=== PATIENT | female | born 1945 | race Caucasian/White ===

== ENCOUNTER 2019-07-19 01:24 | Inpatient (IN) | payer MEDICARE, OTHER, SELFPAY ==
[2019-07-19] VITALS (17 sets, daily range): BP systolic 95–163; BP diastolic 62–84; PULSE 63–80; RESP 12–28; TEMP 36.6–36.8; O2SAT 92–99; BMI 41.5
[2019-07-19 01:55] LABS: Glucose Point of Care 286 mg/dL (70-110)
--- NOTE | 2019-07-19 02:21 | P.HP_ITS ---
Providers/Chief Complaint Admitting Physician: Renetta Dalal MD Primary Care Provider: Gurinder Allen Chief Complaint: COPD EXACERBATION History of Present Illness Tamar Mercado is a 74 year old female who carries diagnosis of COPD, non- smoker, Santos, morbid obesity, recently she started using oxygen at home came in with chief complaint of shortness of breath and wheezing. Patient is stating at baseline she is leading a sedentary lifestyle, she is not very active because she gets short of breath very easily, really recently in the last 3 to 4 weeks she has been getting more wheezing and shortness of breath episodes. She was recently seen in the ER of [facility] where she was discharged after breathing treatment and oxygen therapy. Patient is stating that she was not able to sleep last night because of her shortness of breath and wheezing and this morning around 5 AM her wheezing got worse, it was audible wheezing, family especially son-in-law tried to help her with all the breathing treatments increase her oxygen level but she kept having wheezing and shortness of breath. She did not notice any fever, chills, nausea, vomiting but she is endorsing flores rrhea which has been chronic for last 7 months. She has had not undergone any colonoscopy for screening purposes because she refused. No family history of colon cancer. She has been seen by Dr. Flores for MGUS being managed conservatively. She has never smoked in her life and cause of COPD is unknown, alpha-1 antitrypsin levels have never been obtained. She is denying swelling of her lower extremities, or allergies to pets. No recent travel outside [facility], no one has visited [place], she has been having shortness of breath with nonproductive cough, she is using a whole lot of medications for her anxiety and pain. She has never been tested for sleep apnea. Diagnostics at the ER at outside facility showed Heart rate 88, respiratory 16, blood pressure 166/90, 92% saturation on 4 L nasal cannula, patient was afebrile White count 26 increased after getting steroids Hemoglobin 14 Platelet 357 Sodium 144 Potassium 4.4 Chloride 103 CO2 25 Calcium 9.1 BUN 16 creatinine 0.8 Glucose 201 total protein 7.6 Albumin 4.3 Alkaline phosphatase 154 AST 61 ALT 48 BNP 17 Patient resting troponin 12 baseline Chest x-ray did not show any acute pathology ABG 7.3 //86/27 on 6 L nasal cannula troponin 2-hour 28 with delta of 16 At the facility she got DuoNeb, methylprednisolone 125 mg, Ativan 2 mg, diphenhydramine 25 mg, albuterol, morphine 4 mg, Zofran 4 mg. When I saw her patient had audible wheezing, she was saturating well 97% on 3 L, family was at the bedside, patient was able to give me all the details she has mild conversational dyspnea no cyanotic appearance Review of Systems Const: Reports: body aches, change in appetite, change in weight, fatigue and malaise; Denies: fever or chills Eyes: Denies: change in vision or blurry vision ENMT: Denies: throat pain or uvular edema Card: Denies: chest pain, palpitations, irregular heart rhythm or edema Resp: Reports: shortness of breath and non-productive cough GI: Reports: cramping; Denies: abdominal pain or nausea : Denies: flank pain or difficulty urinating Musc: Reports: neck pain, back pain, extremity pain and joint stiffness Skin/Breast: Denies: rash Neuro: Denies: headache Psych: Reports: anxiety, sleeping less and change in appetite Endo: Denies: excessive urination Sharath/Lymph: Denies: easy bruising All/Imm: Denies: hives Medications/Allergies Allergies Allergy/AdvReac Type Severity Reaction Status Date / Time cortisone Allergy Unknown Verified 06/27/19 10:29 latex Allergy unknown Verified 06/27/19 10:29 oxycodone Allergy unknown Verified 06/27/19 10:29 prednisone Allergy ADR-Itching Verified 07/19/19 03:06 primidone Allergy Unknown Verified 07/19/19 03:05 ticagrelor [From Brilinta] Allergy Unknown Verified 07/19/19 03:06 PFSH Acute PFSH: Statuses (acute, chronic, etc) shown below reflect problem list status as previously entered and may not be historically accurate Medical History (Updated 07/19/19 @ 03:05 by Renetta Dalal MD) Ataxia (Acute) Chronic pain (Acute) COPD (chronic obstructive pulmonary disease) (Acute) Diabetes (Acute) Dyslipidemia (Acute) Essential tremor (Acute) Hypertension (Acute) Memory loss (Acute) MGUS (monoclonal gammopathy of unknown significance) (Acute) Nonalcoholic steatohepatitis (Acute) Type 2 diabetes mellitus (Acute) Surgical History (Updated 07/19/19 @ 02:25 by Renetta Dalal MD) H/O arthroscopy of shoulder (Acute) right H/O melanoma excision (Acute) H/O: hysterectomy (Acute) History of phacoemulsification of cataract of both eyes with intraocular lens implantation (Acute) Family History (Updated 07/19/19 @ 02:26 by Renetta Dalal MD) Family/Other CAD (coronary artery disease) Stroke at age 71 due to cerebral aneurysm rupture Social History (Updated 07/19/19 @ 02:25 by Renetta Dalal MD) Smoking and tobacco status: never smoked Alcohol intake: never Substance/Drug Use: never Marital status: Current occupational status: retired Vitals/I&O/Wt Last Vital Signs Temp 98.3 F 07/19/19 01:42 Pulse 80 07/19/19 01:42 Resp 24 H 07/19/19 01:42 BP 163/82 07/19/19 01:42 Pulse Ox 92 07/19/19 01:42 Weight last 48 hrs Weight 120.519 kg Physical Exam Narrative: EXAM NARRATIVE: Morbidly obese female Using her abdominal muscles to breathe Her neck is supple Not able to assess her JVD No use of respiratory sensory muscles but she has audible wheezing, diffuse expiratory wheezing bilaterally Currently saturating well on 2 L nasal cannula 97% Abdomen soft, distended, with obesity, hepatic steatosis, splenomegaly Lower extremities without any edema or swelling Skin does not show any signs of skin breakdown or ulcer EOMI, PERRLA No sinus tenderness A&P Assessment and plan (1) Hypercapnic respiratory failure: Status: Acute Code(s): J96.92 - Respiratory failure, unspecified with hypercapnia (2) Morbid obesity: Status: Acute Code(s): E66.01 - Morbid (severe) obesity due to excess calories Additional A&P Information Acute hypercapnic respiratory failure with chronic hypoxia I believe her symptoms are secondary to underlying undiagnosed sleep apnea with concomitant use of opioids and anxiolytics She has not responded well to DuoNeb and steroids I would use BiPAP we will get another blood gas in 1 hour No active respiratory distress Acute COPD exacerbation Chest x-ray did not show acute abnormalities, would rule out pulmonary embolism because of her sedentary lifestyle, will get CTA on stat basis DuoNeb Prednisone 40 mg for diffuse wheezing Azithromycin for anti-inflammatory effect MGUS: Being managed conservatively by Dr. Flores Anxiety/chronic pain syndrome: She is on multiple medications for analgesia, anxiolysis, we discussed the option of titrating down and de-escalating this medication but patient is very reluctant to try at this visit, however we have only decrease the dose of gabapentin for now Type 2 diabetes Current hyperglycemia secondary to steroid use Moderate dose sliding scale We will check hemoglobin A1c level and add Lantus accordingly GI prophylaxis: Protonix DVT prophylaxis: Because of her morbid obesity I would use Lovenox 40 mg twice a day She is full code Attestations Medical Necessity Statement*: Anticipating her stay to be of more than 2 midnights, currently she needs BiPAP for COPD exacerbation, has diffuse wheezing, she is leading a sedentary lifestyle, CTA chest has been ordered Time Spent in Patient Care: (>than 50% of time spent in counselling and/or direct pt care on unit) . 60 Coding Level of Care Code Acute Odd Shoe Examiner for Terri Lackey Diagnoses Hypercapnic respiratory failure J96.92 Morbid obesity E66.01
--- NOTE | 2019-07-19 02:34 | CT_ITS ---
WS: [id number] CTA scan of the chest with IV contrast. Additional two-dimensional coronal and sagittal reconstructio n and MIP images was performed. 07/19/2019 Clinical Data: PE Comparison: None. DLP: 545.[address] scans at [facility] use at least one of these dose optimization techniques: automat ed exposure control; mA and/or kV adjustment per patient size (includes targeted exams where dose is matched to clinical indication); or iterative reconstruction. Findings: The central pulmonary arteries arteries fill normally. Small bilateral filling defects are seen in th e lower lobe peripheral arteries which may represent small pulmonary emboli. No nodules, masses or effusions are seen. The heart size is normal with no pericardial effusion. The pulmonary arterial system and thoracic aorta demonstrate no abnormalities or dilatations. There is no axillary or significant mediastinal adenopathy. The thyroid gland shows normal enhancement. The trac hea bifurcates into the bronchi. There is a lesion of 50 posterior aspect of the right lobe of the liver which shows enhancement. This could represent a giant hemangioma of the liver but further workup is recommended. The bones of the thoracic and upper lumbar spine are only mild osteoarthritic change of the thoracic vertebral bodies. . CT/CT angio chest PE protcl [id number] Impression: 1. Possible small intraluminal filling defects of the lower lobes which could r epresent small pulmonary emboli. 2. Large irregular lesion of posterior aspect right lobe of the liver most sugg estive of large hemangioma but further workup is recommended.
--- NOTE | 2019-07-19 03:12 | USCV_ITS ---
Tamar Mercado Age: 74 Gender: F : 1945 Exam Date: 07/19/2019 06:11 Ordering Phys: Renetta Dalal MD Technologist: Mendez Cabrera [place] [facility] [place]: COPD BP: 134 / 75 HR: 70 Rhythm: Sinus Technical Quality: Technically difficult study MEASUREMENTS (Male / Female) Normal Values 2D ECHO LV Diastolic Diameter PLAX 3.7 cm 4.2 - 5.9 / 3.9 - 5.3 cm LV Systolic Diameter PLAX 2.6 cm IVS Diastolic Thickness 1.0 cm 0.6 - 1.0 / 0.6 - 0.9 cm IVS Systolic Thickness 2.0 cm LVPW Diastolic Thickness 1.0 cm 0.6 - 1.0 / 0.6 - 0.9 cm LVPW Systolic Thickness 1.3 cm LVOT Diameter 2.1 cm LV Ejection Fraction 2D Teich 57.6 % LV Ejection Fraction MOD 2C 35.2 % LV Ejection Fraction 2C AL 35.1 % LA Diameter 4.7 cm LA Width 3.9 cm LA Height 4.6 cm RA Width 3.2 cm RA Height 4.9 cm M-MODE LV Diastolic Diameter MM 6.0 cm 4.2 - 5.9 / 3.9 - 5.3 cm LV Systolic Diameter MM 4.2 cm LV Ejection Fraction MM Teich 56.2 % IVS Diastolic Thickness MM 1.8 cm 0.6 - 1.0 / 0.6 - 0.9 cm IVS Systolic Thickness MM 2.0 cm LVPW Diastolic Thickness MM 1.3 cm 0.6 - 1.0 / 0.6 - 0.9 cm LVPW Systolic Thickness MM 2.2 cm RV Diastolic Diameter MM 1.8 cm Aortic Annulus Diameter 3.6 cm LA Ao Ratio MM 1.3 MV E Point Septal Separation 1.5 cm DOPPLER AV Peak Velocity 127.0 cm/s LVOT Peak Velocity 96.0 cm/s AV Area Cont Eq vti 3.2 cm squared AV Area Cont Eq pk 2.5 cm squared MV Area PHT 4.4 cm squared Mitral E to A Ratio 0.6 MV E' Velocity 10.0 cm/s Mitral E to MV E' Ratio 5.5 Mitral E to LV E' Lateral Ratio 4.8 Mitral E to LV E' Septal Ratio 6.5 TR Peak Velocity 152.0 cm/s TR Peak Gradient 9.3 mmHg TV Peak E Velocity 67.0 cm/s Right Atrial Pressure 3.0 mmHg Pulmonary Artery Systolic Pressu 12.2 mmHg PV Peak Velocity 71.0 cm/s FINDINGS Left Ventricle Abnormal LV size and ejection fraction of around 58%. No gross wall motion normalities. Right Ventricle Could not be visualized well. The ventricle appears to be somewhat dilated. Right Atrium Right atrium not well visualized. Left Atrium Possibly of normal size. Mitral Valve Mild mitral annular calcification. Aortic Valve Thickened aortic valve. Tricuspid Valve Tricuspid valve not well visualized. Pulmonic Valve Pulmonic valve not well visualized. Pericardium No pericardial effusion. Aorta Normal aortic annulus size. CONCLUSIONS 1. Possibly normal LV size and ejection fraction of 58%. 2. No gross wall motion normalities. 3. The aortic valve appears to be thickened. 4. Mild mitral annular calcification. 5. The right ventricle appears to be mildly dilated Technically very difficult study because of the poor ultrasonic window. Dr Kevin Trevizo MD FAC (Electronically Signed) Final Date: 19 July 2019 09:19 S
[2019-07-19 04:11] LABS: ABG PCO2 48.1 mmHg (35-45); ABG PH Result 7.34 (7.35-7.45); Arterial Blood Gas Hematocrit 41.5 % (37-47); Base Excess ABG -0.4 mmol/L (-2.0-2.0); Blood Gas Allen Test Pos; Blood Gas Sample Site Radial, right; Blood Gas Sample Type Arterial; Oxygen Device BIPAP
[2019-07-19 04:17] LABS: Basophils # 0.1 10^3/uL (0.0-0.1); Basophils % 0.6 %; Eosinophils # 0.6 10^3/uL (0.0-0.8); Eosinophils % 3.3 %; Hematocrit 41.7 % (37.0-47.0); Hemoglobin 13.1 g/dL (11.5-15.3); Lymphocytes # 4.2 10^3/uL (0.8-4.8); Lymphocytes % 24.4 %; Mean Corpuscular HGB Conc 31.4 g/dL (30.0-36.0); Mean Corpuscular Hemoglobin 28.2 pg (28.0-34.0); Mean Corpuscular Volume 89.9 fL (81-99); Mean Platelet Volume 11.1 fL (7.4-10.4); Monocytes # 0.2 10^3/uL (0.2-0.9); Monocytes % 1.2 %; Neutrophils # 11.9 10^3/uL (1.8-7.7); Neutrophils % 69.9 %; Nucleated Red Blood Cells % 0 %; Platelet Count 318 10^3/cmm (130-400); Red Blood Count 4.64 10^6/uL (4.1-5.3); Red Cell Distribution Width 13.5 % (12.1-15.1)
[2019-07-19 04:36] LABS: Anion Gap 19.7 (5-19); Blood Urea Nitrogen 15 mg/dL (8-23); Calcium 9.1 mg/dL (8.5-10.5); Carbon Dioxide 22 mmol/L (22-29); Chloride 102 mmol/L (98-107); Glucose 384 mg/dL (74-106); Osmolality Calculated 298 mOsm/kg (285-295); Potassium 5.7 mmol/L (3.5-5.1); Sodium 138 mmol/L (136-145)
[2019-07-19] MEDS: enoxaparin 40 mg/0.4 mL Syringe SUBCUT (05:00)
[2019-07-19] MEDS: HYDROcodone-acetaminophen 10-325 mg Tablet 1 TAB PO ×2 (05:01→22:16)
--- NOTE | 2019-07-19 07:00 | ECG_ITS ---
Measurements Intervals [place] Rate: 76 P: 69 AL: 180 QRS: 8 QRSD: 90 T: 65 QT: 418 QTc: 470 SINUS RHYTHM LOW QRS VOLTAGE IN PRECORDIAL LEADS [QRS DEFLECTION < 1.0 mV IN CHEST LEADS] No previous ECG available for comparison Electronically Signed On 07-19-2019 15:59:31 APPLIANCE PARTS COUNTER CLERK by Jam Cano M.D. [id number]
[2019-07-19 07:53] LABS: Glucose Point of Care 328 mg/dL (70-110)
[2019-07-19] MEDS: iohexol 350 mg/mL 100 mL Btl IV (07:59)
[2019-07-19] MEDS: buPROPion XL (24 HR) 300 mg Tablet PO (10:12)
[2019-07-19] MEDS: aspirin 81 mg EC Tablet PO (10:12)
[2019-07-19] MEDS: lisinopril 10 mg Tablet PO (10:12)
[2019-07-19] MEDS: gabapentin 100 mg Capsule PO ×2 (10:12→17:28)
[2019-07-19] MEDS: CLONazepam 1 mg Tablet PO ×3 (10:12→20:45)
[2019-07-19 11:42] LABS: Glucose Point of Care 301 mg/dL (70-110)
[2019-07-19] MEDS: ipratropium-albuterol 3 mL Neb INHALATION ×3 (11:49→19:52)
--- NOTE | 2019-07-19 13:32 | PM.PN ---
Subjective Subjective: Interval history: History and physical was reviewed in detail. Patient reports she is breathing better than she was on admission. She denies any other complaints. I discussed with her in detail, pulmonary embolism and risk of medication versus no treatment. Vitals/I&O/Wt Last Vital Signs Temp 97.8 F 07/19/19 11:33 Pulse 67 07/19/19 12:00 Resp 12 07/19/19 11:53 BP 130/77 07/19/19 11:33 Pulse Ox 96 07/19/19 11:53 07/18/19 07/19/19 07/19/19 22:59 06:59 14:59 Intake Total 240 / 240 480 / 480 Balance 240 / 240 480 / 480 Weight last 48 hrs Weight 120.519 kg Physical Exam Narrative: EXAM NARRATIVE: General exam is no apparent distress Cardiovascular regular rate and rhythm without murmur Lungs diminished breath sounds bilaterally but no wheezes Abdomen is soft, obese, positive bowel sounds Extremities no cyanosis clubbing or edema Data : 07/19/19 02:20 07/19/19 02:20 A&P Assessment and plan (1) Hypercapnic respiratory failure: Overall appears to be improving Status: Acute Code(s): J96.92 - Respiratory failure, unspecified with hypercapnia (2) Morbid obesity: Status: Acute Code(s): E66.01 - Morbid (severe) obesity due to excess calories Additional A&P Information Acute COPD exacerbation. Placed on pulmonary toilet, prednisone, Zithromax Probable acute pulmonary embolism. Discussed with patient risks and benefits bits of anticoagulant. Will initiate Eliquis. Dilated RV on echocardiogram with preserved ejection fraction Likely hepatic angioma which can be worked up as an outpatient MGUS Anxiety/chronic pain with multiple medications which could be sedating Type 2 diabetes Attestations Medical Necessity Statement*: Needs continued hospital stay for treatment of COPD exacerbation with pulmonary toilet. Coding Level of Care Code Acute Repeat Photocomposing Machine Operator for Terri Lackey Diagnoses Hypercapnic respiratory failure J96.92 Morbid obesity E66.01
[2019-07-19 15:51] LABS: Glucose Point of Care 237 mg/dL (70-110)
[2019-07-19 16:03] LABS: Potassium 4.5 mmol/L (3.5-5.1)
[2019-07-19] MEDS: venlafaxine 75 mg Tablet PO ×2 (16:10→22:15)
[2019-07-19] MEDS: apixaban 5 mg Tablet 10 MG PO (17:28)
--- NOTE | 2019-07-19 17:53 | PC.RESP ---
Information left with patient for Pulmonary Rehab.
[2019-07-19] MEDS: atorvastatin 40 mg Tablet 20 MG PO (20:45)
[2019-07-19] MEDS: donepezil 5 MG Tablet 10 MG PO (20:45)
[2019-07-19 22:00] LABS: Glucose Point of Care 219 mg/dL (70-110)
--- NOTE | 2019-07-19 23:15 | PC.NURSE ---
Patient requested that CPAP to be placed on, placed on cpap
[2019-07-20] VITALS (17 sets, daily range): BP systolic 137–154; BP diastolic 72–88; PULSE 63–102; RESP 14–24; TEMP 36.6–36.8; O2SAT 86–97
[2019-07-20] MEDS: ipratropium-albuterol 3 mL Neb INHALATION ×7 (00:01→23:48)
[2019-07-20 05:12] LABS: Basophils # 0.1 10^3/uL (0.0-0.1); Basophils % 0.7 %; Eosinophils # 1.1 10^3/uL (0.0-0.8); Eosinophils % 5.5 %; Hematocrit 38.6 % (37.0-47.0); Hemoglobin 12.1 g/dL (11.5-15.3); Lymphocytes # 10.8 10^3/uL (0.8-4.8); Lymphocytes % 55.7 %; Mean Corpuscular HGB Conc 31.3 g/dL (30.0-36.0); Mean Corpuscular Volume 89.4 fL (81-99); Mean Platelet Volume 10.5 fL (7.4-10.4); Monocytes # 0.9 10^3/uL (0.2-0.9); Monocytes % 4.7 %; Neutrophils # 6.4 10^3/uL (1.8-7.7); Nucleated Red Blood Cells % 0 %; Platelet Count 289 10^3/cmm (130-400); Red Blood Count 4.32 10^6/uL (4.1-5.3); Red Cell Distribution Width 13.3 % (12.1-15.1); White Blood Count 19.4 10^3/uL (4.0-10.0)
--- NOTE | 2019-07-20 05:29 | PC.NURSE ---
Patient removed oxygen, went into patient's room and patient states, I want to go home encouraged patient to put on oxygen, and rest. Patient agrees. Patient asking for pain medication, states, I hurt all over Pain medication given as ordered per physican. call light within reach. Care continued.
[2019-07-20] MEDS: HYDROcodone-acetaminophen 10-325 mg Tablet 1 TAB PO ×2 (05:32→14:43)
[2019-07-20 05:33] LABS: Anion Gap 17.3 (5-19); Blood Urea Nitrogen 20 mg/dL (8-23); Calcium 9.1 mg/dL (8.5-10.5); Carbon Dioxide 25 mmol/L (22-29); Chloride 102 mmol/L (98-107); Glucose 309 mg/dL (74-106); Osmolality Calculated 298 mOsm/kg (285-295); Potassium 4.3 mmol/L (3.5-5.1); Sodium 140 mmol/L (136-145)
--- NOTE | 2019-07-20 05:34 | PC.NURSE ---
patient still refuses to have on telemetry at this time.
--- NOTE | 2019-07-20 05:44 | PC.NURSE ---
encouraged patient to wear oxygen and telemetry, telemetry pads reapplied, patient states, that shanika should be coming out of his ass when I asked what it was, patient responded with you know good and god demarcus who encouraged patient that she was alone in room with someone occupying bed next to hers. Call light within reach. Care continued.
[2019-07-20 07:45] LABS: Glucose Point of Care 284 mg/dL (70-110)
[2019-07-20] MEDS: aspirin 81 mg EC Tablet PO (09:20)
[2019-07-20] MEDS: lisinopril 10 mg Tablet PO (09:21)
[2019-07-20] MEDS: gabapentin 100 mg Capsule PO ×2 (09:21→18:16)
[2019-07-20] MEDS: venlafaxine 75 mg Tablet PO ×3 (09:21→21:27)
[2019-07-20] MEDS: CLONazepam 1 mg Tablet PO ×3 (09:21→21:27)
[2019-07-20] MEDS: buPROPion XL (24 HR) 300 mg Tablet PO (09:21)
[2019-07-20] MEDS: apixaban 5 mg Tablet 10 MG PO ×2 (09:21→18:15)
[2019-07-20 12:00] LABS: Glucose Point of Care 267 mg/dL (70-110)
--- NOTE | 2019-07-20 12:19 | PM.PN ---
Subjective Subjective: Interval history: Tamar reports she is still breathing somewhat short. She is coughing up some brownish sputum. She does feel better than on admission. Medications: Reviewed: Yes Vitals/I&O/Wt Last Vital Signs Temp 97.8 F 07/20/19 10:54 Pulse 71 07/20/19 11:47 Resp 14 07/20/19 11:38 BP 137/79 07/20/19 10:54 Pulse Ox 92 07/20/19 11:47 07/19/19 07/20/19 07/20/19 22:59 06:59 14:59 Intake Total 240 / 720 100 / 820 120 / 120 Output Total 750 / 750 Balance 240 / 720 -650 / 70 120 / 120 Weight last 48 hrs Weight 112.049 kg Weight 120.519 kg Physical Exam Narrative: EXAM NARRATIVE: General exam is no apparent distress Cardiovascular regular rate and rhythm without murmur Lungs diminished breath sounds. A few bilateral wheezes. Abdomen is soft, obese, positive bowel sounds Extremities no cyanosis clubbing or edema Data : 07/20/19 04:50 07/20/19 04:50 A&P Assessment and plan (1) Hypercapnic respiratory failure: Overall appears to be improving Status: Acute Code(s): J96.92 - Respiratory failure, unspecified with hypercapnia (2) Morbid obesity: Status: Acute Code(s): E66.01 - Morbid (severe) obesity due to excess calories Additional A&P Information Acute COPD exacerbation. Placed on pulmonary toilet, prednisone, doxycycline Probable acute pulmonary embolism. Discussed with patient risks and benefits bits of anticoagulant. Eliquis has been started. Dilated RV on echocardiogram with preserved ejection fraction Likely hepatic angioma which can be worked up as an outpatient MGUS with history of chronically elevated white blood cell count Anxiety/chronic pain with multiple medications which could be sedating Type 2 diabetes Constipation, initiate senna/Colace Attestations Medical Necessity Statement*: Needs continued hospitalization for pulmonary toilet, steroids secondary to COPD exacerbation. Coding Level of Care Code Acute Crm Marketing Analyst for Terri Lackey Diagnoses Hypercapnic respiratory failure J96.92 Morbid obesity E66.01
[2019-07-20] MEDS: sennosides-docusate Tablet 2 TAB PO ×2 (12:37→18:16)
[2019-07-20] MEDS: predniSONE 20 mg Tablet 40 MG PO (12:38)
[2019-07-20] MEDS: doxycycline 100 mg Tablet PO ×2 (12:39→18:15)
[2019-07-20 16:01] LABS: Glucose Point of Care 247 mg/dL (70-110)
[2019-07-20] MEDS: bisacodyl 10 mg Supp PR (18:14)
--- NOTE | 2019-07-20 19:47 | PC.NURSE ---
Was able to place telemetry back on patient, also placed patient on BIPAP per patient request, notified respiratory as well, Call light within reach. Care continued.
--- NOTE | 2019-07-20 19:50 | PC.NURSE ---
Patient told respiratory therapy that someone was smoking in her room, no smoking in room at this time, teaching provided to patient that no smoking policy, reorientated patient to hospital surroundings, patient verbalizes understanding. Care continued.
[2019-07-20] MEDS: donepezil 5 MG Tablet 10 MG PO (21:26)
[2019-07-20] MEDS: atorvastatin 40 mg Tablet 20 MG PO (21:27)
[2019-07-20 21:39] LABS: Glucose Point of Care 398 mg/dL (70-110)
[2019-07-20 21:39] LABS: Glucose Point of Care 356 mg/dL (70-110)
--- NOTE | 2019-07-20 23:18 | PC.NURSE ---
patient removed her BIPAP, switched patient back to nasal cannula, respiratory therapist notified via secure messaging.
[2019-07-21] VITALS (9 sets, daily range): BP systolic 142–155; BP diastolic 57–84; PULSE 63–78; RESP 16–22; TEMP 36.5–36.7; O2SAT 92–96
--- NOTE | 2019-07-21 | PC.NURSE ---
attempted to obtain vital signs from patient. Patient refuses and states, leave me alone
--- NOTE | 2019-07-21 00:50 | PC.NURSE ---
Patient up to bathroom without assist. Ambulated from bathroom to bed with standby assist. Tolerated well. Gait steady. Will monitor.
[2019-07-21] MEDS: ipratropium-albuterol 3 mL Neb INHALATION ×3 (04:14→12:37)
[2019-07-21 08:01] LABS: Glucose Point of Care 240 mg/dL (70-110)
[2019-07-21] MEDS: sennosides-docusate Tablet 2 TAB PO (08:32)
[2019-07-21] MEDS: buPROPion XL (24 HR) 300 mg Tablet PO (08:32)
[2019-07-21] MEDS: CLONazepam 1 mg Tablet PO (08:32)
[2019-07-21] MEDS: predniSONE 20 mg Tablet 40 MG PO (08:33)
[2019-07-21] MEDS: aspirin 81 mg EC Tablet PO (08:33)
[2019-07-21] MEDS: venlafaxine 75 mg Tablet PO (08:33)
[2019-07-21] MEDS: lisinopril 10 mg Tablet PO (08:33)
[2019-07-21] MEDS: doxycycline 100 mg Tablet PO (08:33)
[2019-07-21] MEDS: gabapentin 100 mg Capsule PO (08:33)
[2019-07-21] MEDS: apixaban 5 mg Tablet 10 MG PO (08:34)
[2019-07-21] MEDS: bisacodyl 10 mg Supp PR (09:29)
[2019-07-21 10:49] LABS: Glucose Point of Care 317 mg/dL (70-110)
--- NOTE | 2019-07-21 12:16 | PC.CHAP ---
Pastoral Care Encounter/Spiritual Assessment Type of Contact [] Declined knit tubing dyer visit [] Patient/Family/Request visit [] Outpatient visit [] Follow-up visit [] Physician referral [] Code/Alert [] Routine visit [] Staff referral [] Actively dying [x] Patient sleeping [] Family support [] [] Out of room [] Palliative care [] [] Receiving care in room [] Pre-surgical visit [] Trauma [] Long length of stay [] ICU visit [] Other: Relational/Emotional Strength [] Patient feels connected with others/family/visitors/staff [] Distress [] Loneliness/isolation [] Abandonment Spirituality of Patient [] Person of Amanda [] Attends Religion of their Amanda [] Believes in Prayer [] Reads Bible or Gnosticist materials [] There are Spiritual issues to be addressed Industry Operations Investigator Interventions [] Prayer [] Active listening [] Non-anxious presence [] Spiritual/emotional support [] Crisis/trauma care [] Spiritual counseling [] Bereavement support [] Provided bereavement packet [] Provided Bible/devotional materials [] Provided toy/stuffed animal, coloring book to patient or family member [] Provided Communion [] Anointing/[place] [] Salvation [] Completed spiritual assessment [] Other: Impact on Illness or Injury [] Angry [] Fearful [] Anxious [] Often cries [] Exhaustion [] Unable to work [] Unable to attend jainism [] Unable to walk/stand [] Unable to read [] Unable to drive [] Unable to eat/drink [] Unable to sleep [] Unable to be with family [] Patient intubated [] Other: Summary pt. was asleep, will need a follow up visit. Time spent with patient 5 min.
--- NOTE | 2019-07-21 12:56 | PM.DCS ---
Discharge Providers Date of Admission: 07/19/19 01:24 Date of Discharge: Date of Discharge: July 21, 2019 Attending Provider at Admission: Renetta Dalal MD Attending Provider at Discharge: Blair Michael MD Primary Care Provider: Gurinder Allen Diagnoses at Discharge Discharge Diagnosis (1) Hypercapnic respiratory failure: Status: Acute Problem details: Improved (2) Morbid obesity: Status: Acute Problem details: Unchanged Reason for Visit Reason for Visit: Reason For Visit: COPD EXACERBATION Hospital Course Hospital Course: Tamar is a 74-year-old white female [facility]. Upon arrival there was some concern for pulmonary embolism and CTA was obtained. This demonstrated likely pulmonary embolism to the lower lobes. Echocardiogram demonstrated dilated RV, preserved EF. Patient received treatment for COPD exacerbation with steroids, pulmonary toilet, antibiotic consisting of doxycycline. She was placed on Lovenox initially, but this was changed to Eliquis with concern of pulmonary embolism. Throughout the patient's hospital course she remained stable, and had less shortness of breath every day. By the end of her hospital course she had tapered off oxygen completely here, but she was instructed to continue her home oxygen of 2 L as needed until she visits with her primary care provider on discharge. Other findings included a irregular right lobe of the liver, consistent with hemangioma but this can be followed up as an outpatient with ultrasound as well. Physical Exam Narrative: EXAM NARRATIVE: General exam no apparent distress Cardiovascular regular rate and rhythm Lungs faint bilateral expiratory wheeze Abdomen is soft obese nontender Extremities no cyanosis clubbing or edema Discharge Data Data Completed and Pending: Completed Studies During Hospitalization Category Date Time Status CT angio chest PE protcl [id number] Stat Cat Scan 07/19/19 02:34 Completed CV echo complete* [id number] Routine Ultrasound 07/19/19 03:12 Completed Pending at discharge Category Date Time Status Alpha 1 Antitryps in Routine Lab 07/19/19 04:10 Received Labs from last 24 hours 07/21/19 07/21/19 07/20/19 10:37 07:51 21:35 POC Glucose 317 240 356 07/20/19 07/20/19 21:34 15:52 POC Glucose 398 247 Vitals: Last Vital Signs Temp 97.8 F 07/21/19 12:00 Pulse 77 07/21/19 12:37 Resp 20 H 07/21/19 12:37 BP 155/74 07/21/19 12:00 Pulse Ox 92 07/21/19 12:37 Discharge Plan Discharge Patient Disposition: Home, Self-Care Condition: Stable Prescriptions: New doxycycline monohydrate 100 mg Tablet 100 mg PO BID Qty: 14 RF: 0 Eliquis 5 mg Tablet 10 mg PO BID Qty: 78 RF: 0 prednisone 20 mg Tablet 40 mg PO DAILY Qty: 6 RF: 0 Continued hydrocodone bitartrate 10 mg capsule, oral only, ER 12hr 10 - 325 mg PO Q6H PRN (Reason: Pain) RF: 0 hydroxyzine HCl 25 mg tablet 50 mg PO TID PRN (Reason: Itching) RF: 0 donepezil 10 mg tablet,disintegrating 10 mg PO BEDTIME RF: 0 bupropion HCl 75 mg tablet 300 mg PO DAILY RF: 0 lisinopril 2.5 mg tablet 10 mg PO DAILY RF: 0 simvastatin 40 mg tablet 40 mg PO BEDTIME RF: 0 trazodone 300 mg tablet 300 mg PO BEDTIME RF: 0 venlafaxine 100 mg tablet 100 mg PO TID RF: 0 clonazepam 1 mg tablet 1 mg PO TID RF: 0 omeprazole 10 mg capsule,delayed release(DR/EC) 40 mg PO DAILY RF: 0 ondansetron HCl 4 mg tablet 4 mg PO Q8H PRN (Reason: Nausea) RF: 0 albuterol sulfate 5 mg/mL solution for nebulization 2.5 mg INHALATION Q6H PRN (Reason: Shortness Of Breath) RF: 0 aspirin [Adult Aspirin Regimen] 81 mg tablet,delayed release (DR/EC) 81 mg PO ONCE RF: 0 cholecalciferol (vitamin D3) 1,000 unit capsule 2,000 unit PO ONCE RF: 0 Victoza 3-Rahul 0.6 mg/0.1 mL (18 mg/3 mL) pen injector 1.2 mg SUBCUT DAILY RF: 0 insulin NPH and regular human 100 unit/mL (70-30) Insulin Pen 55 unit SUBCUT BID RF: 0 MagOx 400 mg (241.3 mg magnesium) Tablet 250 mg PO DAILY RF: 0 fluconazole 150 mg Tablet 150 mg PO DAILY RF: 0 gabapentin 300 mg Capsule 300 mg PO BID RF: 0 naphazoline-pheniramine 0.025-0.3 % Drops 2 drp OPHTHALMIC (EYE) QID PRN (Reason: Eye Irritation) RF: 0 formoterol fumarate 20 mcg/2 mL Solution For Nebulization 20 mcg INHALATION BID RF: 0 Yupelri 175 mcg/3 mL Solution For Nebulization 175 mcg INHALATION DAILY RF: 0 Discontinued diclofenac sodium 25 mg tablet,delayed release (DR/EC) 75 mg PO BID RF: 0 temazepam 30 mg capsule 30 mg PO BEDTIME RF: 0 Discharge Orders: Discharge Order (Routine); Ordered 07/21/19 Ordered By: Blair Michael Referrals: [facility] [Other] [facility] [Outside] Gurinder Allen [Primary Care Provider] - 4-7 days (Discuss with your primary care provider whether sleep study is needed, and discuss further follow-up of abnormal CAT scan with hepatic ultrasound.) Discharge Diet: Cardiac Discharge Activity: Resume usual activity Activity Restrictions/Additional Instructions: Take all medicine as prescribed. Resume your home oxygen at 2 L per nasal cannula. Discussed with your primary care provider if a sleep study is appropriate. 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
[2019-07-23 16:17] LABS: Alpha 1 Antitrypsin. 140 mg/dL (90-200)
== END 2019-07-21 14:40 | disposition home or self-care (01) | DRG 189 ==
PROVIDERS: Admitting Provider Internal Medicine; Family Provider Family Medicine; PCP Family Medicine; Visit Provider Internal Medicine
DX: J96.02 Acute respiratory failure with hypercapnia (principal); J44.1 Chronic obstructive pulmonary disease with (acute) exacerbation; E66.01 Morbid (severe) obesity due to excess calories; K75.81 Nonalcoholic steatohepatitis (NASH); E11.65 Type 2 diabetes mellitus with hyperglycemia; Z79.4 Long term (current) use of insulin; T38.0X5A Adverse effect of glucocorticoids and synthetic analogues, initial encounter; I10 Essential (primary) hypertension; D47.2 Monoclonal gammopathy; F41.9 Anxiety disorder, unspecified; G89.4 Chronic pain syndrome; D18.03 Hemangioma of intra-abdominal structures; K59.00 Constipation, unspecified
CPT/HCPCS: 12345; 36416; 36600; 71275; 80048; 82103; 82803; 82962; 84132; 85025; 93005; 93306; 94640; 94660; 96372; G0379; J1650; J1815; J7512; Q9967

== ENCOUNTER 2020-02-04 13:17 | Outpatient (CLI) | payer MEDICARE, OTHER, SELFPAY ==
--- NOTE | 2020-02-10 16:12 | ONC FU_ITS ---
Dr. Flores Patient Follow-Up Note Patient: Tamar Mercado Unit #: [id number]: 1945 Dicatated By: Gene Flores M.D.Date of Visit:Feb 04, 2020 Onc Med Follow-up/Prog Note Chief Complaint: Monoclonal B cell lymphocytosis. 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 In the course of her regular follow-up with Dr. Allen she was found on multiple blood counts to have a mild lymphocytosis. As of August 2017 her CBC showed her hemoglobin borderline at 12.9 g with white blood cell count 13,300 and platelet count 364,000. The differential included 50% neutrophils, 41% lymphocytes, 5% monocytes, and 3% eosinophils. A flow cytometry study on 11/02/2017 showed a light chain restricted B cell population, but with nonspecific phenotype. The B cells were positive for CD19, CD20, and CD11c (partial). They were negative for CD5, CD10, CD23, CD38, and CD103. I had seen her initially on 01/02/2018. It did appear likely that she had a low grade B-cell lymphoproliferative disorder, though the initial findings were not definitive. I had discussed the clinical implications, specifically that it was unlikely that it would be clinically significant or require treatment. A repeat whole blood flow cytometry on 02/26/2018 again showed a monotypic B-cell population. The cells were noted to be CD45, CD19, CD20, CD22, CD200, and FMC7 positive with kappa light chain restriction. There were negative for CD5, CD10, CD11c, CD23, CD25, and CD123. The immunophenotypic pattern was felt to be nonspecific, but consistent with monoclonal B-cell lymphocytosis of undetermined significance. The aggressive lymphoma panel by FISH was unrevealing. She has multiple medical illnesses including hypertension, hyperlipidemia, type II diabetes, asthma/COPD, and nonalcoholic steatohepatitis. She has chronic pain, and she has essential tremor, memory loss, and a gait disturbance. She has a remote history of melanoma excision. She is a nonsmoker. She returns for follow-up. She has numerous complaints. Her energy is not good. She has virtually no activity, though she is able to walk short distances with assistance. Her ECOG score is 3. Appetite is variable. She does appear to have lost weight. She does not have fever. She does have some sweating at night. She has shortness of breath. She is on BiPAP at night. She does not have cough and she does not complain of chest pain. She occasionally has nausea. Bowel function has been okay. She has bladder incontinence. She is not having any significant joint or bone pain. She occasionally has headache. She also complains of dizziness. She has numbness/tingling in her feet. She has having significant depression. She says she is living despondent. She does report having suicidal thoughts. Medications: Aspirin 1 Tablet (of 81 mg) Oral daily, BuPROPion HCl ER (XL) 1 Tablet (of 300 mg) Tablet SR 24 HR Oral daily, Cholecalciferol 1 Tablet (of 2000 Units) Oral daily, ClonazePAM 1 Tablet (of 1 mg) Oral t.i.d., Donepezil HCl 1 Tablet (of 10 mg) Oral at bedtime, Fluticasone Propionate 2 puff(s) (of 50 mcg/act) Suspension Nasal daily, HYDROcodone-Acetaminophen 1 (10-325 mg) Tablet Oral four times a day PRN, hydrOXYzine HCl 1 (25 mg) Tablet Oral t.i.d. PRN, Liraglutide 1.2 mg Subcutaneous daily, Lisinopril 1 Tablet (of 10 mg) Oral daily, Lyrica 1 (75 mg) Capsule Oral b.i.d., Magnesium Oxide 0.5 Tablet (of 500 ) Oral daily, Meloxicam 1 Tablet (of 7.5 mg) Oral daily, NovoLIN 70/30 50 Units (of (70-30) 100 Units/mL) Subcutaneous b.i.d., Omeprazole 1 Capsule (of 40 mg) Capsule Delayed Release Oral daily, Ondansetron HCl 1 Tablet (of 4 mg) Oral q 4 to 6 hours PRN, Simvastatin 1 Tablet (of 40 mg) Oral daily, Spiriva HandiHaler 1 Units (of 18 mcg) Capsule Inhalation daily, Temazepam 1 Capsule (of 30 mg) Oral at bedtime, TraZODone HCl 1 Tablet (of 300 mg) Oral at bedtime, Venlafaxine HCl 1 (100 mg) Tablet Oral t.i.d. Allergies: latex Review of Systems: Constitutional - She has no energy. She reports that she doeos very little at home, mostly sitting in her chair. Her appetite is good but her weight is down 18 pounds from last years visit. No fever, night sweats, or hot flashes. ECOG score is 3, ENMT - No sinus congestion/drainage. No mouth sores. No sore throat or difficulty swallowing, Hematologic/Lymphatic - She bruises easiy, Respiratory - She gets short of breath with any activity. No cough. No pleuritic pain or hemoptysis. She is on a BIPAP at night, Cardiovascular - No angina pain. No palpitations, Gastrointestinal - She occasionally has nausea. No vomiting. Her acid reflux is adequately managed. No diarrhea or constipation. No blood in the stool or black stools, Genitourinary (F) - No dysuria or hematuria. She has urinary frequency with urgency. She has incontinence, Musculoskeletal - No joint or bone pain, Integumentary - Her skin is pale and cool to touch, Neurologic - She occasionally has headache. She complains of dizziness. She has neuropathy in her feet. She reports that she falls frequently. She has tremor, Psychiatric - She has significant anxiety and severe depression. She is having suicidal thoughts. No insomnia. Vital Signs: Performed on Feb 04, 2020 13:39 Height - 67.00 in Weight - 231 lbs (LOW) BSA - 2.15 sq.m BMI - 36.18 (HIGH) Temperature - 97.1 F (LOW) Pulse - 85 /min Respiration - 22 /min BP - 136/86 mm(hg) O2 Sat - 95 % (LOW) Pain - 0 Physical Examination: Constitutional - She appears generally weak. She has a very flat affect, Eyes - Sclerae nonicteric. Conjunctivae clear, ENMT - No lesions noted in the oral cavity, Hematologic/Lymphatic - No cervical, clavicular, or axillary adenopathy, Respiratory - Lungs are clear with good air movement bilaterally, Cardiovascular - Heart rhythm is regular. There is no murmur, gallop or rub noted, Abdomen - Distended. Liver and spleen are not enlarged. There is no abdominal mass or ascites noted and there is no inguinal adenopathy, Extremities - No edema, Neurologic - She has tremor in her arms and hands and to a lesser extent in the facial muscles. There are no focal neurologic deficits noted. Lab/Imaging: Her laboratory studies from 12/06/2019 included CBC showing hemoglobin 13.1 g, white blood cell count 12,400, and platelet count 337,000. The differential included 49% neutrophils, 20% lymphocytes, and 22% atypical lymphocytes. Comprehensive metabolic profile showed normal renal function with BUN 12 and creatinine 0.75 mg/dL. Liver enzymes were minimally elevated. Bilirubin was normal at 0.2 mg/dL. Albumin was normal at 4.0 g/dL. Impression: 1. Patient with a mild kappa light chain restricted lymphocytosis, most likely indicative of monoclonal B-cell lymphocytosis. The clinical significance at this point is uncertain. However, it appears very unlikely that it is symptomatic. 2. She appears chronically ill, and she has very poor performance status. Her other medical illnesses include: 3. Hypertension. 4. Hyperlipidemia. 5. Type II diabetes with peripheral neuropathy. 6. Asthma/COPD. 7. Benign essential tremor. 8. Memory loss and gait disturbance. 9. Chronic pain. 10. Anxiety/depression. 11. Remote history of melanoma excision. Her clinical presentation is most consistent with monoclonal B-cell lymphocytosis of undetermined significance. She has multiple underlying medical problems and she has very marginal performance status. Her overall clinical status, though, has been stable and during follow-up her blood counts also have been stable. Plan: She remains on observation/expectant management. She continues regular follow-up with Dr. Allen, I will make sure his office is aware of her depression. I would recommend that she have repeat blood counts at least every 6 months. I will tentatively plan a follow-up visit in 1 year. Signed By: Gene Flores M.D. <<Signature on File>>
== END 2020-02-04 13:18 | disposition home or self-care (01) ==
LOC: ONCMED 13:17
PROVIDERS: PCP Family Medicine; Visit Provider Internal Medicine Medical Oncology
DX: D72.820 Lymphocytosis (symptomatic) (principal); I10 Essential (primary) hypertension; E78.5 Hyperlipidemia, unspecified; E11.42 Type 2 diabetes mellitus with diabetic polyneuropathy; J44.9 Chronic obstructive pulmonary disease, unspecified; G25.0 Essential tremor; R41.3 Other amnesia; R26.9 Unspecified abnormalities of gait and mobility; G89.29 Other chronic pain; F41.8 Other specified anxiety disorders; Z85.820 Personal history of malignant melanoma of skin
CPT/HCPCS: G0463

== ENCOUNTER 2020-09-29 14:26 | Outpatient (CLI) | payer MEDICARE, OTHER, SELFPAY ==
--- NOTE | 2020-09-29 18:16 | ONC FU_ITS ---
Dr. Flores Patient Follow-Up Note Patient: Tamar Mercado Unit #: [id number]: [id number] Dicatated By: Gene Flores M.D.Date of Visit:Sep 29, 2020 Onc Med Follow-up/Prog Note Chief Complaint: Monoclonal B cell lymphocytosis. History of Present Illness: This is a 75 year-old woman with monoclonal B-cell lymphocytosis. In the course of her regular follow-up with Dr. Allen she was found on multiple blood counts to have a mild lymphocytosis. As of August 2017 her CBC showed her hemoglobin borderline at 12.9 g with white blood cell count 13,300 and platelet count 364,000. The differential included 50% neutrophils, 41% lymphocytes, 5% monocytes, and 3% eosinophils. A flow cytometry study on 11/02/2017 showed a light chain restricted B cell population, but with nonspecific phenotype. The B cells were positive for CD19, CD20, and CD11c (partial). They were negative for CD5, CD10, CD23, CD38, and CD103. I had seen her initially on 01/02/2018. It did appear likely that she had a low grade B-cell lymphoproliferative disorder, though the initial findings were not definitive. I had discussed the clinical implications, specifically that it was unlikely that it would be clinically significant or require treatment. A repeat whole blood flow cytometry on 02/26/2018 again showed a monotypic B-cell population. The cells were noted to be CD45, CD19, CD20, CD22, CD200, and FMC7 positive with kappa light chain restriction. There were negative for CD5, CD10, CD11c, CD23, CD25, and CD123. The immunophenotypic pattern was felt to be nonspecific, but consistent with monoclonal B-cell lymphocytosis of undetermined significance. The aggressive lymphoma panel by FISH was unrevealing. With those findings she continued on expectant management, as there is no indication clinically for treatment. She has multiple medical illnesses including hypertension, hyperlipidemia, type II diabetes, asthma/COPD, and nonalcoholic steatohepatitis. She has chronic pain, and she has essential tremor, memory loss, and a gait disturbance. She has a remote history of melanoma excision. She is a nonsmoker. She is seen for a scheduled visit. She continues to have very limited activity. She says she reads a lot. She is mostly sedentary. ECOG score is 3. She has good appetite. She has not had fever. She does have frequent sweating, but that is apparently chronic. She is sometimes short of breath. She does not complain of cough and she has not been having chest pain. She has no GI complaints other than some heartburn. She complains that her bladder is a little weak. She has hesitancy with urination and she has slow urinary stream. She has had pain in her right shoulder and arm following a fracture. She reports having big-time pain in her feet, and she also has some pain in her fingers. She does not complain of headache. She does have poor balance and she says she tripped over her own feet. She is also been falling out of bed. She has chronic tremor. She has ongoing problems with anxiety and depression. Medications: Aspirin 1 Tablet (of 81 mg) Oral daily, BuPROPion HCl ER (XL) 1 Tablet (of 300 mg) Tablet SR 24 HR Oral daily, Cholecalciferol 1 Tablet (of 2000 Units) Oral daily, ClonazePAM 1 Tablet (of 1 mg) Oral t.i.d., Donepezil HCl 1 Tablet (of 10 mg) Oral at bedtime, Fluticasone Propionate 2 puff(s) (of 50 mcg/act) Suspension Nasal daily, HYDROcodone-Acetaminophen 1 (10-325 mg) Tablet Oral four times a day PRN, hydrOXYzine HCl 1 (25 mg) Tablet Oral t.i.d. PRN, Liraglutide 1.2 mg Subcutaneous daily, Lisinopril 1 Tablet (of 10 mg) Oral daily, Lyrica 1 (75 mg) Capsule Oral b.i.d., Magnesium Oxide 0.5 Tablet (of 500 ) Oral daily, Meloxicam 1 Tablet (of 7.5 mg) Oral daily, NovoLIN 70/30 50 Units (of (70-30) 100 Units/mL) Subcutaneous b.i.d., Omeprazole 1 Capsule (of 40 mg) Capsule Delayed Release Oral daily, Ondansetron HCl 1 Tablet (of 4 mg) Oral q 4 to 6 hours PRN, Simvastatin 1 Tablet (of 40 mg) Oral daily, Spiriva HandiHaler 1 Units (of 18 mcg) Capsule Inhalation daily, Temazepam 1 Capsule (of 30 mg) Oral at bedtime, TraZODone HCl 1 Tablet (of 300 mg) Oral at bedtime, Venlafaxine HCl 1 (100 mg) Tablet Oral t.i.d. Allergies: latex Vital Signs: Performed on Sep 29, 2020 14:33 Height - 67.00 in Weight - 260 lbs (HIGH) BSA - 2.26 sq.m BMI - 40.72 (HIGH) Temperature - 96.9 F (LOW) Pulse - 80 /min Respiration - 20 /min BP - 118/70 mm(hg) O2 Sat - 96 % Pain - 0 Physical Examination: Constitutional - She appears generally weak. She is profusely diaphoretic, Eyes - Sclerae nonicteric. Conjunctivae clear, ENMT - No lesions noted in the oral cavity, Hematologic/Lymphatic - No cervical, clavicular, or axillary adenopathy, Respiratory - Lungs are clear with good air movement bilaterally, Cardiovascular - Heart rhythm is regular. There is no murmur, gallop or rub noted, Abdomen - Distended. Liver and spleen are not enlarged. There is no abdominal mass or ascites noted and there is no inguinal adenopathy, Extremities - No edema, Neurologic - She has severe, generalized tremor. There are no focal neurologic deficits noted. Lab/Imaging: Test performed on Sep 28, 2020 12:10 Glucose 375 mg/dL LDH, Total 176 IU/L BUN 13 mg/dL Creatinine 0.85 mg/dL Cr Clearance (Est) 93.14 mL/min Sodium 139 mmol/L Potassium 4.4 mmol/L Chloride 101 mmol/L CO2 22 mmol/L Calcium 8.8 mg/dL Protein, Total 6.8 g/dL Albumin 6.8 g/dL Bilirubin, Total 0.2 mg/dL Alkaline Phosphatase 125 IU/L AST (SGOT) 57 IU/L ALT (SGPT) 40 IU/L WBC 14.2 10^9/L RBC 4.71 10^12/L HGB 13.5 g/dL HCT 41.4 % MCV 87.9 fl MCH 28.7 pg MCHC 32.6 g/dL RDW 13.8 % Platelet Count 291 10^9/L MPV 10.4 fL Neutrophils (Gran) 4.81 10^9/L Lymphocytes 8.23 10^9/L Monocytes 0.66 10^9/L Eosinophils 0.29 10^9/L Basophils 0.10 10^9/L Manual Lymphocytes 58 % Manual Monocytes 5 % Manual Eosinophils 2 % Manual Basophils 1 % Problem List: 1. Mild kappa light chain restricted lymphocytosis, most likely indicative of monoclonal B-cell lymphocytosis. 2. She appears chronically ill, and she has very poor performance status. 3. Hypertension. 4. Hyperlipidemia. 5. Type II diabetes with peripheral neuropathy. 6. Asthma/COPD. 7. Benign essential tremor. 8. Memory loss and gait disturbance. 9. Chronic pain. 10. Anxiety/depression. 11. Remote history of melanoma excision. Problems Addressed with this Encounter and Plan: Patient with a mild kappa light chain restricted lymphocytosis, most likely indicative of monoclonal B-cell lymphocytosis. The clinical significance has been uncertain, but it is presumed to represent a low-grade lymphoproliferative disorder. It has not been overtly symptomatic, and it has been managed expectantly. During follow-up she is continuing to have multiple unrelated complaints and very marginal performance status. Thus far there has been no obvious progression of the lymphocytosis. She remains on observation/expectant management. She will continue her regular follow-up with Dr. Allen. She should have blood counts repeated at 6 to 12-month intervals. I will see her again as needed if there is any indication of progression. Signed By: Gene Flores M.D. <<Signature on File>>
== END 2020-09-29 14:27 | disposition home or self-care (01) ==
LOC: ONCMED 14:27
PROVIDERS: PCP Family Medicine; Visit Provider Internal Medicine Medical Oncology
DX: D72.820 Lymphocytosis (symptomatic) (principal)
CPT/HCPCS: G0463

== ENCOUNTER 2021-06-30 12:40 | Emergency (ER) | payer MEDICARE, OTHER, SELFPAY ==
[2021-06-30 13:17] VITALS: BP 184/116; PULSE 76; RESP 26; TEMP 36.7; O2SAT 94; BMI 36.8
[2021-06-30 14:39] LABS: Glucose Point of Care 309 mg/dL (70-110)
--- NOTE | 2021-06-30 15:36 | US_ITS ---
WS: [id number] ULTRASOUND ABDOMEN LIMITED CLINICAL INFORMATION: eval for cholecystitis COMPARISON: Outside ultrasound June 24, [address] June 07, 2021 FINDINGS: Liver Size: Enlarged Craniocaudal length: 20.4 cm. Echogenicity: Coarse Surface nodularity: Present Mass (size and location): Echogenic ill-defined mass in the right hepatic lobe inferiorly measuring 6 .4 x 6.7 CM. This is nonspecific in a cirrhotic liver and HCC not excluded. Recommend further evaluat ion with contrast-enhanced CT abdomen pelvis. This is further discussed below. Bile ducts Intrahepatic ducts: Normal. Common bile duct diameter: 0.55 cm. Gallbladder Normal. Gallstones: None. Gallbladder sludge: None. Gallbladder wall thickening: None. Pericholecystic fluid: None. Sonographic Chavez sign: Absent. Pancreas Not well visualized Right kidney: Normal. Hydronephrosis: None. Size: 11.3 cm x 5.6 cm x 6.4 cm. Abdominal aorta and IVC Visualized portions are normal. Ascites: None. US/US gall bladder [id number] IMPRESSION: 1. Hepatomegaly with coarse echogenicity. Cirrhotic configuration to the liver . 2. Echogenic ill-defined mass in the right hepatic lobe inferiorly measuring 6 .4 x 6.7 CM. This may represent cavernous hemangioma or geographic fatty infilt ration but is nonspecific in a cirrhotic liver and HCC not excluded. Recommend further evaluation with contrast-enhanced CT abdomen pelvis. Similar-appearing lesion was present on the outside examination June 24, [address] June 07, 2021 3. Normal gallbladder. No evidence of acute cholecystitis. Normal common bile duct. 4. No hydronephrosis in right kidney.
--- NOTE | 2021-06-30 15:50 | CTR_ITS ---
PROCEDURE INFORMATION: Exam: CT Abdomen And Pelvis With Contrast Exam date and time: 06/30/2021 3:50 PM Age: 76 years old Clinical indication: Abdominal pain; Localized; Right upper quadrant (ruq); Prior surgery; Surgery type: Bladder sling, hyst; Additional info: Bladder sling and possible mesh infection. Ruq pain x 4 week. Vaginal bleeding x 1 week TECHNIQUE: Imaging protocol: Computed tomography of the abdomen and pelvis with contrast. Radiation optimization: All CT scans at this facility use at least one of these dose optimization techniques: automated exposure control; mA and/or kV adjustment per patient size (includes targeted exams where dose is matched to clinical indication); or iterative reconstruction. Contrast material: OMNI 300; Contrast volume: 95 ml; Contrast route: INTRAVENOUS (IV); COMPARISON: CT abdomen pelvis w con* [id number] 06/07/2021 7:42 AM RADIATION DOSE METRICS: Total DLP (mGy-cm): 2016.78 FINDINGS: Lungs: Right lower lobe atelectasis versus minimal infiltrate. Heart: Coronary artery atherosclerotic calcifications. Liver: Stable somewhat linear right hepatic lobe low-density area may reflect some focal fatty infiltration. Gallbladder and bile ducts: Normal. No calcified stones. No ductal dilation. Pancreas: Normal. No ductal dilation. Spleen: Normal. No splenomegaly. Adrenal glands: Normal. No mass. Kidneys and ureters: Normal. No hydronephrosis. Stomach and bowel: Diverticulosis without diverticulitis. Appendix: No evidence of appendicitis. Intraperitoneal space: Unremarkable. No free air. No significant fluid collection. Vasculature: Unremarkable. No abdominal aortic aneurysm. Lymph nodes: Unremarkable. No enlarged lymph nodes. Urinary bladder: Unremarkable as visualized. Reproductive: Unremarkable as visualized. Bones/joints: T8 and L4 vertebral bodies chronic appearing compression fractures without retropulsion of bony fragments, somewhat progressed at T8. Soft tissues: Unremarkable. CT/CT abdomen pelvis w con* [id number] IMPRESSION: 1. Negative for focal acute inflammatory process in the abdomen or pelvis. 2. Right lower lobe atelectasis versus minimal infiltrate. 3. Coronary artery atherosclerotic calcifications. 4. Stable somewhat linear right hepatic lobe low-density area may reflect some focal fatty infiltration. 5. T8 and L4 vertebral bodies chronic appearing compression fractures without retropulsion of bony fragments, somewhat progressed at T8. 6. Diverticulosis without diverticulitis.
[2021-06-30] MEDS: ondansetron 2 mg/ML SDV 2 mL 4 MG IVP (15:59)
[2021-06-30] MEDS: sodium chloride 0.9% 500 ML IV (16:00)
[2021-06-30] MEDS: morphine 4 mg/mL SDV 1 mL 2 MG IVP ×2 (16:00→17:37)
[2021-06-30 16:21] LABS: Basophils # 0.1 10^3/uL (0.0-0.1); Basophils % 0.7 %; Eosinophils # 0.2 10^3/uL (0.0-0.8); Eosinophils % 1.1 %; Hematocrit 45.5 % (37.0-47.0); Hemoglobin 14.7 g/dL (11.5-15.3); Lymphocytes # 6.8 10^3/uL (0.8-4.8); Lymphocytes % 47.2 %; Mean Corpuscular HGB Conc 32.3 g/dL (30.0-36.0); Mean Corpuscular Hemoglobin 27.8 pg (28.0-34.0); Mean Corpuscular Volume 86.2 fl (81-99); Mean Platelet Volume 11.2 fL (7.4-10.4); Monocytes # 0.7 10^3/uL (0.2-0.9); Neutrophils # 6.63 10^3/uL (1.8-7.7); Neutrophils % 45.9 %; Nucleated Red Blood Cells % 0 %; Platelet Count 323 10^3/cmm (130-400); Red Blood Count 5.28 10^6/uL (4.1-5.3); Red Cell Distribution Width 14.5 % (12.1-15.1); White Blood Count 14.5 10^3/uL (4.0-10.0)
--- NOTE | 2021-06-30 16:44 | W.ED.GENADLT ---
HPI - General Adult General: Chief complaint: Abdominal Pain Stated complaint: Excessive Vaginal Bleeding/Sent From urgius Time Seen by Provider: 06/30/21 15:16 History of Present Illness: HPI narrative: Patient is a 76-year-old female with a history of gallbladder sludge, bladder sling who presents the emergency room for evaluation of 4 weeks of worsening right flank pain. Patient tells me that she has had abnormal vaginal discharge and urinary symptoms including dysuria. Patient tells me that the flank pain has worsened over the last week. Patient denies any nausea/vomiting, fever/chills, abdominal complaints, diarrhea, melena hematochezia. Patient was told to come to the emergency room by Dr. Morin for concern that this may be possible bladder/sling infection with pyelonephritis. Patient has no complaints of chest pain, shortness breath, palpitation or lightheadedness. Patient was diagnosed recently with gallbladder sludge but denies any abdominal pain with p.o. intake, nausea/vomiting, significant right upper quadrant franchesca pain. Onset:4 weeks ago Duration:4 weeks Location:home Severity:moderate Associated symptoms: Deny chest pain, dyspnea, nausea, rash, palpitations or vomiting Review of Systems Const: Denies: fever(s) or chills Eyes: Denies: change in vision ENMT: Denies: mouth pain Card: Denies: chest pain or palpitations Resp: Denies: dyspnea or non-productive cough GI: Reports: other (+R flank pain, +R back pain); Denies: abdominal pain, nausea, vomiting or diarrhea : Reports: dysuria and other (+vaginal bleeding) Musc: Denies: extremity pain Skin/Breast: Denies: rash or new lesions Neuro: Denies: weakness in extremities Psych: Reports: other (Normal mood) Sharath/Lymph: Denies: easy bruising PFSH ED PFSH: Medical History Ataxia Chronic pain COPD (chronic obstructive pulmonary disease) Diabetes Dyslipidemia Essential tremor Hypertension Memory loss MGUS (monoclonal gammopathy of unknown significance) Nonalcoholic steatohepatitis Type 2 diabetes mellitus Surgical History H/O arthroscopy of shoulder right H/O melanoma excision H/O: hysterectomy History of phacoemulsification of cataract of both eyes with intraocular lens implantation Family History Family/Other CAD (coronary artery disease) Stroke at age 71 due to cerebral aneurysm rupture Denies family history of Anesthesia complication Bleeding disorder Social History Smoking and tobacco status: never smoked Alcohol intake: never Marital status: Current occupational status: retired Physical Exam Const: COMMON NORMALS: alert HENMT: COMMON NORMALS: atraumatic HEAD & SCALP: atraumatic MOUTH: moist mucous membranes not abnormal Eye: COMMON NORMALS: EOMs intact bilaterally and conjunctivae normal CONJUNCTIVA: Yes conjunctivae normal Neck/C-Spine: COMMON NORMALS: full ROM and supple Resp: COMMON NORMALS: normal respiratory effort and clear to auscultation bilaterally AUSCULTATION: clear to auscultation bilaterally Cardio: COMMON NORMALS: regular rate RATE: regular rate GI: COMMON NORMALS: Soft to palpation PALPATION: Yes Soft to palpation OTHER: + R flank and R CVA focal TTP. NO guarding rebound, guarding, rigidity. Neg Chavez/Neg McBurney's point tenderness, no suprabupic tenderness to palpation. Extremity: COMMON NORMALS: full ROM Neuro: SENSORIUM/ORIENTATION: Yes alert MOTOR EXAM: No Abnormal motor strength present and Other motor observations present (no focal motor deficits) Psych: COMMON NORMALS: speech normal SPEECH: Yes normal speech MOOD & AFFECT: Yes euthymic mood Course Vital Signs: Vital signs: Vital Signs Temperature 98.1 F 06/30/21 13:17 Pulse Rate 78 06/30/21 20:38 Respiratory Rate 16 06/30/21 20:38 Blood Pressure 130/82 06/30/21 20:38 Pulse Oximetry 94 06/30/21 20:38 MDM - General Adult MDM Narrative: Medical decision making narrative: 76-year-old female presents emergency room with complaints of right-sided flank pain. On exam: Patient mild tenderness to palpation of the R flank. No guarding or rebound tenderness. Dr. Vieira request imaging studies to evaluate for pyelonephritis and possible bladder sling infection. She is noted to have white count of 14.5. Right upper quad ultrasound did not show any signs of gallbladder pathology. CT of pelvis is negative for any acute findings. Patient's pain is controlled with medicine. He is able to tolerate p.o. without difficulty. No suspicion for other acute intra-abdominal pathology including SBO, biliary pathology, appendicitis, diverticulitis, or other emergent condition requiring surgery. I have given patient follow up with our casework supervisor to be seen by our outpatient gynecology for vaginal bleeding as this can be early sign of cancer. Patient aware of a call from our casework supervisor to schedule for appointment(s) and verbalizes understanding of the importance of following up. Present time, patient defers pelvic exam and ultrasound evaluation. Explained to patient that it is impossible for me to evaluate to see whether this is cancer or no endometrial hyperplasia at this time. Rx tylenol PRN abd pain, maalox/pepcid PRN dyspepsia, and zofran PRN nausea/vomiting Disposition: Discharge. Patient counseled regarding diagnostic impression, treatment plan. Patient given ED strict return precautions to return for continuation, worsening, or development of new symptoms. Instructed to f/u w/ PCP regarding symptoms today. Patient verbalized understanding. Lab Data: Labs: Lab Results 06/30/21 06/30/21 06/30/21 14:35 16:02 16:02 WBC 14.5 10^3/uL H 10 ^3/uL (4.0-10.0) RBC 5.28 10^6/uL 10^6 /uL (4.1-5.3) Hgb 14.7 g/dL g/dL (11.5-15.3) Hct 45.5 % % (37.0-47.0) MCV 86.2 fl fl (81-99) MCH 27.8 pg L pg (28.0-34.0) MCHC 32.3 g/dL g/dL (30.0-36.0) RDW 14.5 % % (12.1-15.1) Plt Count 323 10^3/cmm 10^3 /cmm (130-400) MPV 11.2 fL H fL (7.4-10.4) Neut % (Auto) 45.9 % % Lymph % (Auto) 47.2 % % Waldo % (Auto) 5.0 % % Eos % (Auto) 1.1 % % Baso % (Auto) 0.7 % % Neut # (Auto) 6.63 10^3/uL 10^3 /uL (1.8-7.7) Lymph # (Auto) 6.8 10^3/uL H 10^ 3/uL (0.8-4.8) Waldo # (Auto) 0.7 10^3/uL 10^3/ uL (0.2-0.9) Eos # (Auto) 0.2 10^3/uL 10^3/ uL (0.0-0.8) Baso # (Auto) 0.1 10^3/uL 10^3/ uL (0.0-0.1) Nucleated RBC % (a uto) 0 % % Nucleated RBCs # 0.0 /100WBC /100W BC Sodium 141 mmol/L mmol/L (136-145) Potassium 3.9 mmol/L mmol/L (3.5-5.1) Chloride 101 mmol/L mmol/L (98-107) Carbon Dioxide 24 mmol/L mmol/L (22-29) Anion Gap 19.9 H (5-19) BUN 7 mg/dL L mg/dL (8-23) Creatinine 0.6 mg/dL mg/dL (0.5-0.9) GFR Calculation Not Reportable Glucose 299 mg/dL H mg/dL (65-115) POC Glucose 309 mg/dL H mg/dL (70-110) Calculated Osmolal ity 301 mOsm/kg H mOs m/kg (285-295) Lactate Calcium 8.7 mg/dL mg/dL (8.5-10.5) Total Bilirubin 0.4 mg/dL mg/dL (0.15-1.2) AST 24 U/L U/L (0-32) ALT 17 U/L U/L (0-33) Alkaline Phosphata se 173 IU/L H IU/L (35-105) Total Protein 7.2 g/dL g/dL (6.6-8.7) Albumin 4.0 g/dL g/dL (3.5-5.2) Globulin 3.2 g/dL g/dL (1.3-4.6) Lipase 14 U/L U/L (13-60) Urine Color Urine Appearance Urine pH Ur Specific Gravit y Urine Protein Urine Glucose (UA) Urine Ketones Urine Blood Urine Nitrate Urine Bilirubin Urine Urobilinogen Ur Leukocyte Nannette ase Urine RBC Urine WBC Ur Squamous Epith Cells Amorphous Sediment Urine Bacteria 06/30/21 06/30/21 16:02 19:08 WBC RBC Hgb Hct MCV MCH MCHC RDW Plt Count MPV Neut % (Auto) Lymph % (Auto) Waldo % (Auto) Eos % (Auto) Baso % (Auto) Neut # (Auto) Lymph # (Auto) Waldo # (Auto) Eos # (Auto) Baso # (Auto) Nucleated RBC % (a uto) Nucleated RBCs # Sodium Potassium Chloride Carbon Dioxide Anion Gap BUN Creatinine GFR Calculation Glucose POC Glucose Calculated Osmolal ity Lactate 2.7 mmol/L H mmol /L (0.5-2.2) Calcium Total Bilirubin AST ALT Alkaline Phosphata se Total Protein Albumin Globulin Lipase Urine Color Yellow (Yellow) Urine Appearance Hazy A (CLEAR) Urine pH 7 (5-7) Ur Specific Gravit y 1.005 (1.005-1.030) Urine Protein 1+ H (Negative) Urine Glucose (UA) 4+ H (Normal) Urine Ketones 1+ H (Negative) Urine Blood Neg (Negative) Urine Nitrate Negative (Negative) Urine Bilirubin Neg (Negative) Urine Urobilinogen Norm mg/dL mg/dL (Negative) Ur Leukocyte Nannette ase 1+ H (Negative) Urine RBC 0-4 /hpf H /hpf (0-2) Urine WBC 0-4 /hpf H /hpf (0-5) Ur Squamous Epith Cells 0-4 /hpf H /hpf (0-5) Amorphous Sediment Not Reportable Urine Bacteria Trace /hpf /hpf (NONE) Imaging Data^: Other Imaging: Radiologist's impression: [address] [id number] Scan ReportSigned Patient: Bk Mercado #: [id number]: 1945cct#:[id number]/Sex: 76 / FADM Date: 06/30/21Loc: ERRoom/Bed:Attending Dr: Ordering Provider/Ordering MD: Alexa Hall MD Date of Service: 06/30/21 Procedure(s): CT abdomen pelvis w con* [id number] Accession Number(s): [id number] Report Number: [id number] PROCEDURE INFORMATION: Exam: CT Abdomen And Pelvis With Contrast Exam date and time: 06/30/2021 3:50 PM Age: 76 years old Clinical indication: Abdominal pain; Localized; Right upper quadrant (ruq); Prior surgery; Surgery type: Bladder sling, hyst; Additional info: Bladder sling and possible mesh infection. Ruq pain x 4 week. Vaginal bleeding x 1 week TECHNIQUE: Imaging protocol: Computed tomography of the abdomen and pelvis with contrast. Radiation optimization: All CT scans at this facility use at least one of these dose optimization techniques: automated exposure control; mA and/or kV adjustment per patient size (includes targeted exams where dose is matched to clinical indication); or iterative reconstruction. Contrast material: OMNI 300; Contrast volume: 95 ml; Contrast route: INTRAVENOUS (IV); COMPARISON: CT abdomen pelvis w con* [id number] 06/07/2021 7:42 AM RADIATION DOSE METRICS: Total DLP (mGy-cm): 2015.78 FINDINGS: Lungs: Right lower lobe atelectasis versus minimal infiltrate. Heart: Coronary artery atherosclerotic calcifications. Liver: Stable somewhat linear right hepatic lobe low-density area may reflect some focal fatty infiltration. Gallbladder and bile ducts: Normal. No calcified stones. No ductal dilation. Pancreas: Normal. No ductal dilation. Spleen: Normal. No splenomegaly. Adrenal glands: Normal. No mass. Kidneys and ureters: Normal. No hydronephrosis. Stomach and bowel: Diverticulosis without diverticulitis. Appendix: No evidence of appendicitis. Intraperitoneal space: Unremarkable. No free air. No significant fluid collection. Vasculature: Unremarkable. No abdominal aortic aneurysm. Lymph nodes: Unremarkable. No enlarged lymph nodes. Urinary bladder: Unremarkable as visualized. Reproductive: Unremarkable as visualized. Bones/joints: T8 and L4 vertebral bodies chronic appearing compression fractures without retropulsion of bony fragments, somewhat progressed at T8. Soft tissues: Unremarkable. CT/CT abdomen pelvis w con* [id number] IMPRESSION: 1. Negative for focal acute inflammatory process in the abdomen or pelvis. 2. Right lower lobe atelectasis versus minimal infiltrate. 3. Coronary artery atherosclerotic calcifications. 4. Stable somewhat linear right hepatic lobe low-density area may reflect some focal fatty infiltration. 5. T8 and L4 vertebral bodies chronic appearing compression fractures without retropulsion of bony fragments, somewhat progressed at T8. 6. Diverticulosis without diverticulitis. Dictated By:Jacinto Restrepo MDSigned By:Jacinto Restrepo MDSigned Date/Time:06/30/21 1725DD/ [address] [id number] ReportSigned Patient: Bk Mercado #: [id number]: [id number]#:[id number]/Sex: 76 / FADM Date: 06/30/21Loc: ERRoom/Bed:Attending Dr: Ordering Provider/Ordering MD: Alexa Hall MD Date of Service: 06/30/21 Procedure(s): US gall bladder [id number] Accession Number(s): [id number] Report Number: [id number] WS: [id number] ULTRASOUND ABDOMEN LIMITED CLINICAL INFORMATION: eval for cholecystitis COMPARISON: Outside ultrasound June 24, [address] June 07, 2021 FINDINGS: Liver Size: Enlarged Craniocaudal length: 20.4 cm. Echogenicity: Coarse Surface nodularity: Present Mass (size and location): Echogenic ill-defined mass in the right hepatic lobe inferiorly measuring 6.4 x 6.7 CM. This is nonspecific in a cirrhotic liver and HCC not excluded. Recommend further evaluation with contrast-enhanced CT abdomen pelvis. This is further discussed below. Bile ducts Intrahepatic ducts: Normal. Common bile duct diameter: 0.55 cm. Gallbladder Normal. Gallstones: None. Gallbladder sludge: None. Gallbladder wall thickening: None. Pericholecystic fluid: None. Sonographic Chavez sign: Absent. Pancreas Not well visualized Right kidney: Normal. Hydronephrosis: None. Size: 11.3 cm x 5.6 cm x 6.4 cm. Abdominal aorta and IVC Visualized portions are normal. Ascites: None. US/US gall bladder [id number] IMPRESSION: 1. Hepatomegaly with coarse echogenicity. Cirrhotic configuration to the liver. 2. Echogenic ill-defined mass in the right hepatic lobe inferiorly measuring 6.4 x 6.7 CM. This may represent cavernous hemangioma or geographic fatty infiltration but is nonspecific in a cirrhotic liver and HCC not excluded. Recommend further evaluation with contrast-enhanced CT abdomen pelvis. Similar-appearing lesion was present on the outside examination June 24, [address] June 07, 2021 3. Normal gallbladder. No evidence of acute cholecystitis. Normal common bile duct. 4. No hydronephrosis in right kidney. Dictated By:Mati Zepeda MDSigned By:Mati Zepeda MDSigned Date/Time:06/30/211658DD/ 49 Discharge Plan Discharge Patient Disposition: Home Clinical Impression: Acute right flank pain, Abnormal vaginal bleeding Condition: Stable Prescriptions: New Zofran 4 mg tablet 4 mg PO TID PRN (Reason: nausea and vomiting) 4 Days Qty: 12 RF: 0 acetaminophen 500 mg tablet 500 mg PO Q6H PRN (Reason: pain) 5 Days Qty: 20 RF: 0 Pepcid 20 mg tablet 20 mg PO BID PRN (Reason: abdominal pain) 10 Days Qty: 20 RF: 0 Maalox Advanced 1,000-60 mg tablet,chewable 1 tab PO TID PRN (Reason: abdominal pain) 7 Days Qty: 21 RF: 0 No Action hydrocodone bitartrate 10 mg capsule, oral only, ER 12hr 10 - 325 mg PO Q6H PRN (Reason: Pain) RF: 0 hydroxyzine HCl 25 mg tablet 50 mg PO TID PRN (Reason: Itching) RF: 0 donepezil 10 mg tablet,disintegrating 10 mg PO BEDTIME RF: 0 bupropion HCl 75 mg tablet 300 mg PO DAILY RF: 0 lisinopril 2.5 mg tablet 10 mg PO DAILY RF: 0 trazodone 300 mg tablet 300 mg PO BEDTIME RF: 0 venlafaxine 100 mg tablet 100 mg PO TID RF: 0 clonazepam 1 mg tablet 1 mg PO TID RF: 0 omeprazole 10 mg capsule,delayed release(DR/EC) 40 mg PO DAILY RF: 0 ondansetron HCl 4 mg tablet 4 mg PO Q8H PRN (Reason: Nausea) RF: 0 albuterol sulfate 5 mg/mL solution for nebulization 2.5 mg INHALATION Q6H PRN (Reason: Shortness Of Breath) RF: 0 aspirin [Adult Aspirin Regimen] 81 mg tablet,delayed release (DR/EC) 81 mg PO ONCE RF: 0 cholecalciferol (vitamin D3) 1,000 unit capsule 2,000 unit PO ONCE RF: 0 Victoza 3-Rahul 0.6 mg/0.1 mL (18 mg/3 mL) pen injector 1.2 mg SUBCUT DAILY RF: 0 diphenoxylate-atropine 2.5-0.025 mg tablet 1 tab PO QID PRNRF: 0 fluticasone propion-salmeterol inhalation RF: 0 lovastatin 10 mg tablet 10 mg PO DAILY RF: 0 naloxone 4 mg/actuation spray,non-aerosol 1 spray intranasal Q2M RF: 0 temazepam 30 mg capsule 30 mg PO DAILY RF: 0 warfarin 5 mg tablet 5 mg PO DAILY RF: 0 MagOx 400 mg (241.3 mg magnesium) Tablet 250 mg PO DAILY RF: 0 fluconazole 150 mg Tablet 150 mg PO DAILY RF: 0 gabapentin 300 mg Capsule 300 mg PO BID RF: 0 naphazoline-pheniramine 0.025-0.3 % Drops 2 drp OPHTHALMIC (EYE) QID PRN (Reason: Eye Irritation) RF: 0 formoterol fumarate 20 mcg/2 mL Solution For Nebulization 20 mcg INHALATION BID RF: 0 Yupelri 175 mcg/3 mL Solution For Nebulization 175 mcg INHALATION DAILY RF: 0 doxycycline monohydrate 100 mg Tablet 100 mg PO BID Qty: 14 RF: 0 Eliquis 5 mg Tablet 10 mg PO BID Qty: 78 RF: 0 insulin NPH and regular human 100 unit/mL (70-30) insulin pen 60 unit SUBCUT BID RF: 0 Discharge Orders: Discharge ED (Routine); Ordered 06/30/21 Ordered By: Alexa Hall Referrals: Gurinder Allen [Primary Care Provider] - Discharge Diet: Advance as tolerated Discharge Activity: Resume usual activity Patient Instructions: Abnormal (Dysfunctional) Uterine Bleeding (ED) Activity Restrictions/Additional Instructions: Our casework supervisor will have you follow-up with a computer graphics illustrator in the next few days for evaluation of vaginal bleeding as this can first sign of cancer. You would be expected to have a phone call with our casework supervisor who will put you on the schedule. Come back to the emergency if your pain worsens, if any fever/chills, inability to hold down food or water, worsening pain, worsening vaginal bleeding, or any new x-ray complaints. Please follow up with Dr. Henson if you have any new or concerning issues. Coding Level of Care Code ED [facility] Social Worker for Chg Fwd Exam Comprehensive
[2021-06-30 16:49] LABS: Lactate (Lactic Acid level) 2.7 mmol/L (0.5-2.2)
[2021-06-30 16:50] LABS: Alanine Aminotransferase 17 U/L (0-33); Alkaline Phosphatase 173 IU/L (35-105); Aspartate Amino Transferase 24 U/L (0-32); Blood Urea Nitrogen 7 mg/dL (8-23); Calcium 8.7 mg/dL (8.5-10.5); Carbon Dioxide 24 mmol/L (22-29); Chloride 101 mmol/L (98-107); Globulin 3.2 g/dL (1.3-4.6); Glucose 299 mg/dL (65-115); Lipase 14 U/L (13-60); Osmolality Calculated 301 mOsm/kg (285-295); Sodium 141 mmol/L (136-145); Total Bilirubin 0.4 mg/dL (0.15-1.2); Total Protein 7.2 g/dL (6.6-8.7)
[2021-06-30 16:54] LABS: Anion Gap 19.9 (5-19); Potassium 3.9 mmol/L (3.5-5.1)
[2021-06-30] MEDS: iohexol 300 mg/mL 100 mL Btl IV (17:09)
[2021-06-30 19:25] LABS: Add Urine Microscopic? YES; Bacteria Urine TRACE /hpf; Bilirubin Urine Neg (Negative); Blood Urine Neg (Negative); Glucose Urine UA 4+ (Normal); Ketones Urine 1+ (Negative); Leukocyte Esterase Urine 1+ (Negative); Nitrate Urine Negative (Negative); Protein Urine 1+ (Negative); RBC Urine 0-4 /hpf (0-2); Specific Gravity, Urine 1.005 (1.005-1.030); Squamous Epithelial Cell Urine 0-4 /hpf (0-5); Urine Appearance Hazy (CLEAR); Urine Color Yellow (Yellow); Urobilinogen Urine Norm (Negative); WBC Urine 0-4 /hpf (0-5); pH Urine 7 (5-7)
[2021-06-30 19:26] LABS: Add Urine Culture? No
[2021-06-30] MEDS: HYDROcodone-acetaminophen 5-325 mg Tablet 1 TAB PO (20:36)
[2021-06-30 20:38] VITALS: BP 130/82; PULSE 78; RESP 16; O2SAT 94
--- NOTE | 2021-07-01 10:04 | DCPLANNER ---
manager training had message to schedule a follow up appointment for patient with general surgery for abdominal pain. manager training emailed patients information to Shadia Rivera and Angelica. Patients information will be printed and reviewed. Clinic will call patient with appointment information.
--- NOTE | 2021-07-01 10:19 | DCPLANNER ---
health services manager had message to schedule a follow up appointment for patient with [facility]. health services manager called [facility], spoke with Jam, gave clinic patients information. health services manager was told that patients information would be printed and reviewed. Clinic will call patient with appointment information.
--- NOTE | 2021-07-02 05:30 | DCPLANNER ---
Patient has a follow up appointment scheduled for Friday, July 02, 2021 at 1:00 with STEM TEACHER, Eunice Shepard. Clinic will call patient with appointment information.
--- NOTE | 2021-07-02 05:38 | DCPLANNER ---
Patient had a follow up appointment with Dr. Henson on 06.30.21 at General Surgery - patient did attend appointment.
--- NOTE | 2021-07-06 08:01 | DCPLANNER ---
Patient had a follow up appointment scheduled for 07.02.21 with Eunice Shepard at [facility] - patient did attend appointment.
== END 2021-06-30 20:39 | disposition home or self-care (01) ==
PROVIDERS: Nurse Practitioner Family; Emergency Provider Emergency Medicine; PCP Family Medicine
DX: R10.9 Unspecified abdominal pain (principal); N93.9 Abnormal uterine and vaginal bleeding, unspecified; Z79.01 Long term (current) use of anticoagulants; Z79.82 Long term (current) use of aspirin; J44.9 Chronic obstructive pulmonary disease, unspecified; E11.9 Type 2 diabetes mellitus without complications; E78.5 Hyperlipidemia, unspecified; I10 Essential (primary) hypertension
CPT/HCPCS: 36416; 74177; 76705; 80053; 81001; 82962; 83605; 83690; 85025; 96361; 96374; 96375; 96376; 99283; J2270; J2405; J7040; Q9967

== ENCOUNTER → 2021-07-02 13:41 | Outpatient (BNVA) | payer MEDICARE, OTHER, SELFPAY | PROVIDERS: PCP Family Medicine; Referring Provider Registered Nurse; Visit Provider Nurse Practitioner Women's Health | DX: N93.9 Abnormal uterine and vaginal bleeding, unspecified (principal); R58 Hemorrhage, not elsewhere classified | CPT/HCPCS: 81000; 87086 ==

== ENCOUNTER 2021-07-05 09:05 | Outpatient (CLI) | payer MEDICARE, OTHER, SELFPAY ==
--- NOTE | 2021-07-05 09:11 | XR_ITS ---
WS: [id number] Exam: XR knees AP WB w LT lmt ORTH Date/Time of Exam: 07/05/2021 9:11 AM Reason For Exam: M25.561 - Pain in left knee Tricompartmental degenerative change noted most advanced at the medial joint compartment. No fracture or dislocation. The patella rides superior and lateral. Probable effusion in the suprapatellar bursa . AP view the right knee shows mild degenerative change at the medial and lateral joint compartments . XR/XR knees AP WB w LT lmt ORTH IMPRESSION: 1. Degenerative changes of the left knee. No fracture. Small joint effusion.
== END 2021-07-05 09:06 | disposition home or self-care (01) ==
PROVIDERS: PCP Family Medicine; Visit Provider Specialist
DX: M25.562 Pain in left knee (principal); M25.462 Effusion, left knee
CPT/HCPCS: 73560; 73565

== ENCOUNTER 2021-07-12 17:34 | Inpatient (IN) | payer MEDICARE, OTHER, SELFPAY ==
--- NOTE | 2021-07-12 17:35 | ED_ITS ---
HPI - SOB/Dyspnea General: Chief Complaint: ER Hold Stated Complaint: SOB Time Seen by Provider: 07/12/21 17:35 Limitations: altered mental status History of Present Illness: HPI Narrative: Ms. Mercado is a 76-year-old lady with, per chart review, hypertension, hyperlipidemia, diabetes, and COPD who presents emergency department due to shortness of breath. She reports symptoms have been ongoing for about 2 days with shortness of breath, chest pressure, and cough. She notes associated generalized malaise and fevers. Denies sick contacts. Course has been worsening. Intensity is moderate to severe. History is somewhat limited by mental status changes the patient endorses new tremor and does fall asleep midsentence. She does not think that she wears oxygen normally and is requiring oxygen at this time. Pertinent past history: COPD and diabetes Onset (ago): day(s) Timing: constant and progressively worsening Severity: moderate Exacerbating factors: exertion Relieving factors: nothing Known history of: COPD Review of Systems General: Reports: 10 or more systems reviewed and unremarkable except in HPI and below PFSH ED PFSH: Medical History Ataxia Chronic pain COPD (chronic obstructive pulmonary disease) Dyslipidemia Essential tremor History of pulmonary embolism (~06/2019) had s/s of covid 19, but never tested. Assumed possibly related Hypertension Memory loss MGUS (monoclonal gammopathy of unknown significance) Nonalcoholic steatohepatitis Type 2 diabetes mellitus Surgical History H/O arthroscopy of shoulder right H/O bladder repair surgery 2 separate procedures. First one to repair due to prolapse and leaking. Sling repaired 4-6 years later. H/O melanoma excision (~1995) Upper right thigh H/O: hysterectomy (~1975) [facility]--benign reasons. Performed [facility]. She has her ovaries. History of phacoemulsification of cataract of both eyes with intraocular lens i mplantation Family History Family/Other No problems noted. Brother Hypercholesteremia Sister Hypercholesteremia Mother Stroke at age 72 due to cerebral aneurysm rupture Denies family history of Colon cancer Ovarian cancer Diabetes Heart disease Breast cancer Hypertension Uterine cancer Thyroid disease Social History Smoking and tobacco status: never smoked Alcohol intake: never Physical Exam Const: COMMON NORMALS: alert GENERAL APPEARANCE: cooperative, ill appearing and other (Somnolent) NUTRITIONAL APPEARANCE: obese ORIENTATION/CO NSCIOUSNESS: Yes oriented to person, Yes oriented to place and Yes oriented to time HENMT: COMMON NORMALS: normocephalic and atraumatic HEAD & SCALP: normocephalic and atraumatic THROAT: posterior oropharynx normal Eye: COMMON NORMALS: conjunctivae normal CONJUNCTIVA: Yes conjunctivae normal SCLERA: sclerae normal Neck/C-Spine: COMMON NORMALS: supple GENERAL: Yes trachea midline Resp: COMMON NORMALS: normal respiratory effort EFFORT & INSPECTION: Yes able to speak in complete sentences Cardio: COMMON NORMALS: regular rate and regular rhythm RATE: regular rate RHYTHM: regular rhythm GI: COMMON NORMALS: Soft to palpation PALPATION: Yes Soft to palpation and No Tenderness to palpation present (GI) PERCUSSION: normal to percussion Extremity: GENERAL: Yes normal exam except as noted and No edema Neuro: COMMON NORMALS: CN's II-XII intact bilaterally, moves all extremities, no focal motor deficits and no sensory deficits noted SENSORIUM/ORIENTATION: Yes alert, Yes oriented to person, Yes oriented to place, Yes oriented to time and No Orientation impaired Psych: COMMON NORMALS: mental status grossly normal and Normal thought process present THOUGHT PROCESS: Normal thought process present Course ED course: - Patient was seen and evaluated by me at bedside - Patient placed on cardiac monitors, IV access obtained - Initial evaluation notable for somewhat ill appearance, new oxygen requirement, somnolent - Labs notable for leukocytosis and thrombocytosis. Metabolic panel with mildly increased anion gap. Glucose is elevated though bicarb normal. Initial troponin mildly elevated, repeat pending at time of admission - Imaging notable for no acute abnormality on head CT. Chest x-ray with bibasilar opacities suspicious for pneumonia which is likely secondary to Covid given positive Covid test and negative procalcitonin - Upon serial reexamination after treatment the patient was similar to mildly improved - Based on patient history, evaluation, labs, and imaging as interpreted the most likely cause of the patient's condition is COVID-19 with overall ill appearance, somnolence, and new oxygen requirement - The results of ED evaluation were discussed with the patient including plan for admission due to requirement for level of care not available if discharged to prevent significant worsening/deterioration. -Hospitalist service contacted and agreed admit the patient - Patient was admitted without further deterioration or significant events. Note: Click bubbles or prepopulated cao in note writing are used for assistance with data collection and billing and are inherently more limited than narrative and other text portions of this note. Please use narrative for additional clinical history and defer to narrative/free test for any case of contradictory information. If information appears in only free text or click bubble it should be considered present or absent as reported. Please contact note service writer for clarifications of clinical information or contradictory information. MDM is a brief summary, contradictory or erroneous seeming information should be clarified and full note should be reviewed. Vital Signs: Vital signs: Vital Signs Temperature 97.8 F 07/16/21 08:00 Pulse Rate 55 L 07/16/21 08:00 Respiratory Rate 18 07/16/21 08:00 Blood Pressure 178/81 07/16/21 08:00 Pulse Oximetry 90 07/16/21 08:00 MDM - SOB/Dyspnea MDM Narrative Medical decision making narrative: 76-year-old lady presenting with 2-day history of respiratory symptoms. Patient does have COPD. Initial evaluation with ill appearance, new oxygen requirement. Patient found to be Covid positive. Given overall clinical appearance she does require admission given oxygen requirement. Admitted for further management. Medical Records Attestation: I reviewed the patient's medical records. Lab Data Attestation: I reviewed the patient's lab results. Result diagrams: 07/16/21 05:30 07/16/21 05:30 Labs: Lab Results 07/12/21 07/12/21 07/12/21 18:55 18:55 18:55 WBC RBC Hgb Hct MCV MCH MCHC RDW Plt Count MPV Neut % (Auto) Lymph % (Auto) [place] % (Auto) Eos % (Auto) Baso % (Auto) Neut # (Auto) Lymph # (Auto) [place] # (Auto) Eos # (Auto) Baso # (Auto) Nucleated RBC % (auto) Nucleated RBCs # PT 21.70 SECONDS H SECONDS (12.1-14.9) INR 1.85 H (0.8-1.2) Specimen Type Sample Site ABG pH ABG pCO2 ABG pO2 ABG HCO3 ABG Base Excess Joey Test Hematocrit O2 Delivery Device O2 Liters/Min Solar Energy System Installer ID Sodium Potassium Chloride Carbon Dioxide Anion Gap BUN Creatinine GFR Calculation Glucose Estimat Average Glucose 206 Hemoglobin A1c 8.8 % H % (4.0-6.0) Calculated Osmolality Calcium Magnesium Total Bilirubin AST ALT Alkaline Phosphatase Troponin T Baseline Troponin T 120 Minute Delta Troponin T C-Reactive Protein NT-Pro-B Natriuret Pep Total Protein Albumin Globulin Procalcitonin TSH Urine Color Urine Appearance Urine pH Ur Specific [place] Urine Protein Urine Glucose (UA) Urine Ketones Urine Blood Urine Nitrate Urine Bilirubin Urine Urobilinogen Ur Leukocyte Esterase Urine RBC Urine WBC Ur Squamous Epith Cells Amorphous Sediment Urine Bacteria Urine Yeast Influenza Type A Ag Influenza Type B Ag SARS-CoV-2 Ag (Rapid) Positive H (Negative) 07/12/21 07/12/21 07/12/21 19:50 20:50 20:55 WBC RBC Hgb Hct MCV MCH MCHC RDW Plt Count MPV Neut % (Auto) Lymph % (Auto) [place] % (Auto) Eos % (Auto) Baso % (Auto) Neut # (Auto) Lymph # (Auto) [place] # (Auto) Eos # (Auto) Baso # (Auto) Nucleated RBC % (auto) Nucleated RBCs # PT INR Specimen Type Arterial Sample Site Radial, left ABG pH 7.46 H (7.35-7.45) ABG pCO2 39.9 mmHg mmHg (35-45) ABG pO2 60.2 mmHg L mmHg (80.0-100.0) ABG HCO3 28.6 mmol/L H mmol/L (22-26) ABG Base Excess 4.5 mmol/L H mmol/L (-2.0-2.0) Joey Test N/a Hematocrit 42.0 % % (37-47) O2 Delivery Device Nc O2 Liters/Min 3.0 % % Solar Energy System Installer ID [id number] Sodium Potassium Chloride Carbon Dioxide Anion Gap BUN Creatinine GFR Calculation Glucose Estimat Average Glucose Hemoglobin A1c Calculated Osmolality Calcium Magnesium Total Bilirubin AST ALT Alkaline Phosphatase Troponin T Baseline Troponin T 120 Minute 124.5 ng/L H ng/L (0-10) Delta Troponin T 104.5 ABS# H* ABS# (0-10) C-Reactive Protein NT-Pro-B Natriuret Pep Total Protein Albumin Globulin Procalcitonin TSH Urine Color Urine Appearance Urine pH Ur Specific [place] Urine Protein Urine Glucose (UA) Urine Ketones Urine Blood Urine Nitrate Urine Bilirubin Urine Urobilinogen Ur Leukocyte Esterase Urine RBC Urine WBC Ur Squamous Epith Cells Amorphous Sediment Urine Bacteria Urine Yeast Influenza Type A Ag Negative (Negative) Influenza Type B Ag Negative (Negative) SARS-CoV-2 Ag (Rapid) 07/12/21 07/12/21 07/12/21 23:00 Unknown Unknown WBC 16.0 10^3/uL H 10^3/uL (4.0-10.0) RBC 5.22 10^6/uL 10^6/uL (4.1-5.3) Hgb 14.6 g/dL g/dL (11.5-15.3) Hct 46.0 % % (37.0-47.0) MCV 88.1 fl fl (81-99) MCH 28.0 pg pg (28.0-34.0) MCHC 31.7 g/dL g/dL (30.0-36.0) RDW 14.4 % % (12.1-15.1) Plt Count 408 10^3/cmm H 10^3/cmm (130-400) MPV 11.1 fL H fL (7.4-10.4) Neut % (Auto) 61.0 % % Lymph % (Auto) 25.5 % % [place] % (Auto) 8.4 % % Eos % (Auto) 4.0 % % Baso % (Auto) 0.6 % % Neut # (Auto) 9.79 10^3/uL H 10^3/uL (1.8-7.7) Lymph # (Auto) 4.1 10^3/uL 10^3/uL (0.8-4.8) [place] # (Auto) 1.3 10^3/uL H 10^3/uL (0.2-0.9) Eos # (Auto) 0.6 10^3/uL 10^3/uL (0.0-0.8) Baso # (Auto) 0.1 10^3/uL 10^3/uL (0.0-0.1) Nucleated RBC % (auto) 0 % % Nucleated RBCs # 0.0 /100WBC /100WBC PT INR Specimen Type Sample Site ABG pH ABG pCO2 ABG pO2 ABG HCO3 ABG Base Excess Joey Test Hematocrit O2 Delivery Device O2 Liters/Min Solar [employer] System Installer ID Sodium 139 mmol/L mmol/L (136-145) Potassium 4.1 mmol/L mmol/L (3.5-5.1) Chloride 95 mmol/L L mmol/L (98-107) Carbon Dioxide 25 mmol/L mmol/L (22-29) Anion Gap 23.1 H (5-19) BUN 5 mg/dL L mg/dL (8-23) Creatinine 0.6 mg/dL mg/dL (0.5-0.9) GFR Calculation Not Reportable Glucose 315 mg/dL H mg/dL (65-115) Estimat Average Glucose Hemoglobin A1c Calculated Osmolality 297 mOsm/kg H mOsm/kg (285-295) Calcium 9.1 mg/dL mg/dL (8.5-10.5) Magnesium 1.8 mg/dL mg/dL (1.7-2.3) Total Bilirubin 0.2 mg/dL mg/dL (0.15-1.2) AST 36 U/L H U/L (0-32) ALT 15 U/L U/L (0-33) Alkaline Phosphatase 245 IU/L H IU/L (35-105) Troponin T Baseline Troponin T 120 Minute Delta Troponin T C-Reactive Protein 50.6 mg/L H mg/L (0.0-4.9) NT-Pro-B Natriuret Pep 1078 pg/mL H pg/mL (0-450) Total Protein 7.0 g/dL g/dL (6.6-8.7) Albumin 3.9 g/dL g/dL (3.5-5.2) Globulin 3.1 g/dL g/dL (1.3-4.6) Procalcitonin 0.10 ng/mL ng/mL (0-0.5) TSH 2.16 uIU/mL uIU/mL (0.27-4.20) Urine Color Yellow (Yellow) Urine Appearance Clear (CLEAR) Urine pH 7 (5-7) Ur Specific [place] 1.010 (1.005-1.030) Urine Protein 1+ H (Negative) Urine Glucose (UA) 4+ H (Normal) Urine Ketones 2+ H (Negative) Urine Blood Neg (Negative) Urine Nitrate Negative (Negative) Urine Bilirubin Neg (Negative) Urine Urobilinogen Norm mg/dL mg/dL (Negative) Ur Leukocyte Esterase Negative (Negative) Urine RBC 0-4 /hpf H /hpf (0-2) Urine WBC 0-4 /hpf H /hpf (0-5) Ur Squamous Epith Cells 5-10 /hpf H /hpf (0-5) Amorphous Sediment Not Reportable Urine Bacteria Trace /hpf /hpf (NONE) Urine Yeast 1+ /hpf H /hpf Influenza Type A Ag Influenza Type B Ag SARS-CoV-2 Ag (Rapid) 07/12/21 Unknown WBC RBC Hgb Hct MCV MCH MCHC RDW Plt Count MPV Neut % (Auto) Lymph % (Auto) [place] % (Auto) Eos % (Auto) Baso % (Auto) Neut # (Auto) Lymph # (Auto) [place] # (Auto) Eos # (Auto) Baso # (Auto) Nucleated RBC % (auto) Nucleated RBCs # PT INR Specimen Type Sample Site ABG pH ABG pCO2 ABG pO2 ABG HCO3 ABG Base Excess Joey Test Hematocrit O2 Delivery Device O2 Liters/Min [employer] System Installer ID Sodium Potassium Chloride Carbon Dioxide Anion Gap BUN Creatinine GFR Calculation Glucose Estimat Average Glucose Hemoglobin A1c Calculated Osmolality Calcium Magnesium Total Bilirubin AST ALT Alkaline Phosphatase Troponin T Baseline 20 ng/L H ng/L (0-10) Troponin T 120 Minute Delta Troponin T C-Reactive Protein NT-Pro-B Natriuret Pep Total Protein Albumin Globulin Procalcitonin TSH Urine Color Urine Appearance Urine pH Ur Specific [place] Urine Protein Urine Glucose (UA) Urine Ketones Urine Blood Urine Nitrate Urine Bilirubin Urine Urobilinogen Ur Leukocyte Esterase Urine RBC Urine WBC Ur Squamous Epith Cells Amorphous Sediment Urine Bacteria Urine Yeast Influenza Type A Ag Influenza Type B Ag SARS-CoV-2 Ag (Rapid) EKG Data^ EKG 1: Attestation: I personally reviewed and interpreted this EKG as follows: EKG Interpretation Date: 07/12/21 EKG interpretation time: 18:55 Interpretation: Twelve-lead EKG shows a regular rhythm at a rate of 93. MO interval 155, QRS duration 93, QTc 409. Left axis deviation. Interpretation: Sinus rhythm. Discharge Plan Discharge Patient Disposition: Admitted As Inpatient Admit Provider: Manpreet Latif Clinical Impression: COVID-19, Hypoxemia Condition: Stable Discharge Diet: Cardiac and Diabetic Discharge Activity: Increase activity as tolerated Coding Level of Care Code ED Operations/Dispatch for Chg Fwd
--- NOTE | 2021-07-12 18:19 | CTR_ITS ---
PROCEDURE INFORMATION: Exam: CT Head Without Contrast Exam date and time: 07/12/2021 6:19 PM Age: 76 years old Clinical indication: Altered mental status/memory loss; Patient HX: Best images possible. PT SOB, and shakes/moans uncontrollably; Additional info: AMS TECHNIQUE: Imaging protocol: Computed tomography of the head without contrast. Radiation optimization: All CT scans at this facility use at least one of these dose optimization techniques: automated exposure control; mA and/or kV adjustment per patient size (includes targeted exams where dose is matched to clinical indication); or iterative reconstruction. COMPARISON: CR XR knees AP WB w LT lmt ORTH 07/05/2021 9:16 AM RADIATION DOSE METRICS: Total DLP (mGy-cm): 1245.6 FINDINGS: Brain: No hemorrhage. Mild diffuse cerebral atrophy and sequela of chronic small vessel ischemic disease. No mass effect. Cerebral ventricles: No ventriculomegaly. Paranasal sinuses: Visualized sinuses are unremarkable. No fluid levels. Mastoid air cells: Visualized mastoid air cells are well aerated. Bones/joints: Unremarkable. No acute fracture. Soft tissues: Unremarkable. CT/CT head wo con* [id number] IMPRESSION: 1. No acute intracranial abnormality. 2. Mild diffuse cerebral atrophy and sequela of chronic small vessel ischemic disease.
--- NOTE | 2021-07-12 18:19 | XRR_ITS ---
PROCEDURE INFORMATION: Exam: XR Chest Exam date and time: 07/12/2021 6:19 PM Age: 76 years old Clinical indication: Shortness of breath; Additional info: Cough, SOB TECHNIQUE: Imaging protocol: XR of the chest. Views: 1 view. COMPARISON: CR XR knees AP WB w LT lmt ORTH 07/05/2021 9:16 AM FINDINGS: Lungs: Peripheral right basilar opacity noted. Pleural spaces: No pleural effusion. No pneumothorax. Heart/Mediastinum: Heart size within normal limits for AP technique. Tortuous appearance of the aorta. Bones/joints: Visualized osseous structures are intact. XR/XR chest 1V portable [id number] IMPRESSION: Peripheral right basilar opacity suspicious for pneumonia.
--- NOTE | 2021-07-12 18:19 | ECG_ITS ---
[facility] Test Date: 2021-07-12 Pat Name: Tamar Mercado Department: Room: Gender: Female Education Trainer: : 1945 Requested By: Adriel Ferro Order Number: [id number] Barb MD: Kevin Trevizo M.D. Measurements Intervals [place] Rate: 93 P: 29 VA: 155 QRS: 0 QRSD: 93 T: 87 QT: 358 QTc: 447 Interpretive Statements SINUS RHYTHM WITH SINUS ARRHYTHMIA LEFT VENTRICULAR HYPERTROPHY AND ST-T CHANGE [VOLTAGE CRITERIA PLUS ST/T ABNORMALITY] Compared to ECG 07/19/2019 10:04:30 Left ventricular hypertrophy now present ST (T wave) deviation now present Electronically Signed On 07-12-2021 23:57:02 LOADING MACHINE ADJUSTER by Kevin Trevizo M.D. [id number]
[2021-07-12 19:00] VITALS: PULSE 95; RESP 18; TEMP 38.2; O2SAT 95; BMI 41.9
[2021-07-12 19:18] LABS: Basophils # 0.1 10^3/uL (0.0-0.1); Basophils % 0.6 %; Eosinophils # 0.6 10^3/uL (0.0-0.8); Hemoglobin 14.6 g/dL (11.5-15.3); Lymphocytes # 4.1 10^3/uL (0.8-4.8); Lymphocytes % 25.5 %; Mean Corpuscular HGB Conc 31.7 g/dL (30.0-36.0); Mean Corpuscular Volume 88.1 fl (81-99); Mean Platelet Volume 11.1 fL (7.4-10.4); Monocytes # 1.3 10^3/uL (0.2-0.9); Monocytes % 8.4 %; Neutrophils # 9.79 10^3/uL (1.8-7.7); Nucleated Red Blood Cells % 0 %; Platelet Count 408 10^3/cmm (130-400); Red Blood Count 5.22 10^6/uL (4.1-5.3); Red Cell Distribution Width 14.4 % (12.1-15.1)
[2021-07-12 19:41] LABS: Troponin(5th) Baseline 20 ng/L (0-10)
[2021-07-12 19:48] LABS: NT Pro B Type Natriuretic Pept 1078 pg/mL (0-450); Thyroid Stimulating Hormone 2.16 uIU/mL (0.27-4.20)
[2021-07-12 19:53] VITALS: PULSE 95; RESP 20; O2SAT 95
[2021-07-12] MEDS: ipratropium-albuterol 3 mL Neb INHALATION (19:53)
[2021-07-12 19:54] LABS: SARS Covid-2 Antigen Positive (Negative)
[2021-07-12 19:59] LABS: Alanine Aminotransferase 15 U/L (0-33); Albumin Level 3.9 g/dL (3.5-5.2); Alkaline Phosphatase 245 IU/L (35-105); Aspartate Amino Transferase 36 U/L (0-32); Blood Urea Nitrogen 5 mg/dL (8-23); C Reactive Protein 50.6 mg/L (0.0-4.9); Calcium 9.1 mg/dL (8.5-10.5); Carbon Dioxide 25 mmol/L (22-29); Chloride 95 mmol/L (98-107); Globulin 3.1 g/dL (1.3-4.6); Glucose 315 mg/dL (65-115); Magnesium 1.8 mg/dL (1.7-2.3); Osmolality Calculated 297 mOsm/kg (285-295); Sodium 139 mmol/L (136-145); Total Bilirubin 0.2 mg/dL (0.15-1.2)
[2021-07-12 20:00] LABS: Anion Gap 23.1 (5-19); Potassium 4.1 mmol/L (3.5-5.1)
[2021-07-12 20:01] LABS: ABG PCO2 39.9 mmHg (35-45); ABG PH Result 7.46 (7.35-7.45); Base Excess ABG 4.5 mmol/L (-2.0-2.0); Blood Gas Sample Site Radial, left; Blood Gas Sample Type Arterial; HCO3 ABG 28.6 mmol/L (22-26); Oxygen Device NC; PO2 ABG 60.2 mmHg (80.0-100.0)
--- NOTE | 2021-07-12 20:19 | ECG_ITS ---
[facility] Test Date: 2021-07-12 Pat Name: Tamar Mercado Department: Room: Gender: Female Motor Vehicle Dispatcher: : 1945 Requested By: Adriel Ferro Order Number: [id number] Barb MD: Wendy Ramirez M.D. Measurements Intervals [place] Rate: 80 P: 1 [place]: 136 QRS: 9 QRSD: 93 T: 92 QT: 313 QTc: 362 Interpretive Statements SINUS RHYTHM MINIMAL VOLTAGE CRITERIA FOR LVH, CONSIDER NORMAL VARIANT [MEETS CRITERIA IN ONE OF: R(aVL), S(V1), R(V5), R(V5/V6)+S(V1)] NONSPECIFIC ST & T-WAVE ABNORMALITY Compared to ECG 07/12/2021 18:52:08 T-wave abnormality now present Sinus arrhythmia no longer present ST (T wave) deviation no longer present Electronically Signed On 07-13-2021 17:27:51 ADDRESSOGRAPH OPERATOR by Wnedy Ramirez M.D. [id number]
[2021-07-12 21:21] VITALS: BP 173/89; PULSE 82; RESP 18; TEMP 37; O2SAT 95
[2021-07-12 21:41] LABS: Influenza A by IFA Negative (Negative); Influenza B by IFA Negative (Negative)
--- NOTE | 2021-07-12 22:07 | PM.HP ---
Providers/Chief Complaint Primary Care Provider: Gurinder Allen Chief Complaint: SOB History of Present Illness Tamar Mercado is a 76 year old female COPD, non-smoker, history of pulmonary embolism on Coumadin, history of Santos, morbid obesity, ambulates with a wheeled walker, type 2 diabetes mellitus, insulin-dependent, MGUS, does not use oxygen at home, history of right hepatic lobe hemangioma, who presents to [facility] due to increased shortness of breath. Currently patient is alert to person, not to place, not to time, she is encephalopathic, does answer basic yes or no questions, she tells me that she has been eating recently more short of breath, has had more wheezing, has been more bedbound, reports fevers, nonproductive cough, denies any chest pain, no palpitations, is requiring 4 L, denies using oxygen at home. Denies any cardiovascular history. No history of heart failure. 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, no flu vaccine, the emergency room she was found to be actively wheezing, on 4 L, no evidence of acute respiratory distress, elevated white count, hospitalist team was called for admission for COVID-19 as she was found to be positive Review of Systems General: Reports: ROS unobtainable due to mental status Const: Reports: fever(s), fatigue and malaise Card: Denies: chest pain Resp: Reports: dyspnea and non-productive cough GI: Denies: abdominal pain Medications/Allergies Home Medications Medication Instructions Recorded Confirmed Last Taken Type albuterol sulfate 5 mg/mL(0.5 %) 2.5 mg INHALATION Q6H PRN 06/27/19 07/02/21 07/18/19 08:00 History solution for nebulization aspirin 81 mg tablet,delayed 81 mg PO ONCE 06/27/19 07/02/21 07/18/19 08:00 History release bupropion HCl 75 mg tablet 300 mg PO DAILY 06/27/19 07/02/21 07/18/19 08:00 History cholecalciferol (vitamin D3) 25 2,000 unit PO ONCE 06/27/19 07/02/21 07/18/19 08:00 History mcg (1,000 unit) capsule clonazepam 1 mg tablet 1 mg PO TID 06/27/19 07/02/21 07/18/19 13:00 History donepezil 10 mg disintegrating 10 mg PO BEDTIME 06/27/19 07/02/21 07/17/19 22:00 History tablet hydrocodone bitartrate 10 mg 10 - 325 mg PO Q6H PRN 06/27/19 07/02/21 07/18/19 13:00 History capsule, oral only, extended rel 12 hr hydroxyzine HCl 25 mg tablet 50 mg PO TID PRN 06/27/19 07/02/21 07/18/19 08:00 History liraglutide 0.6 mg/0.1 mL (18 mg/3 1.2 mg SUBCUT DAILY 06/27/19 07/02/21 07/18/19 08:00 History mL) subcutaneous pen injector lisinopril 2.5 mg tablet 10 mg PO DAILY 06/27/19 07/02/21 07/18/19 08:00 History omeprazole 10 mg capsule,delayed 40 mg PO DAILY 06/27/19 07/02/21 07/18/19 08:00 History release ondansetron HCl 4 mg tablet 4 mg PO Q8H PRN 06/27/19 07/02/21 07/18/19 23:50 History trazodone 300 mg tablet 300 mg PO BEDTIME tab 06/27/19 07/02/21 07/17/19 22:00 History venlafaxine 100 mg tablet 100 mg PO TID 06/27/19 07/02/21 07/18/19 13:00 History MagOx 250 mg PO DAILY 07/19/19 07/02/21 07/18/19 08:00 History formoterol fumarate 20 mcg INHALATION BID 07/19/19 07/02/21 07/18/19 08:00 History gabapentin 300 mg PO BID 07/19/19 07/02/21 07/18/19 08:00 History naphazoline-pheniramine 2 drp OPHTHALMIC (EYE) QID PRN 07/19/19 07/02/21 07/18/19 08:00 History apixaban [Eliquis] 10 mg PO BID #78 tab 07/21/19 07/02/21 Unknown Rx diphenoxylate-atropine 2.5 1 tab PO QID PRN 04/27/20 07/02/21 Unknown History mg-0.025 mg tablet fluticasone propion-salmeterol INHALATION 04/27/20 07/02/21 Unknown History insulin NPH-regular 70-30 U-100 60 unit SUBCUT BID ml 04/27/20 07/02/21 Unknown History insulin 100 unit/mL subcutaneous pen lovastatin 10 mg tablet 10 mg PO DAILY 04/27/20 07/02/21 Unknown History naloxone 4 mg/actuation nasal spray 1 spray INTRANASAL Q2M 04/27/20 07/02/21 Unknown History temazepam 30 mg capsule 30 mg PO DAILY cap 04/27/20 07/02/21 Unknown History warfarin 5 mg tablet 5 mg PO DAILY 04/27/20 07/02/21 Unknown History Allergies Allergy/AdvReac Type Severity Reaction Status Date / Time cortisone Allergy Unknown Verified 07/05/21 10:09 latex Allergy unknown Verified 07/05/21 10:09 oxycodone Allergy unknown Verified 07/05/21 10:09 primidone Allergy Unknown Verified 07/05/21 10:09 ticagrelor [From Brilinta] Allergy Unknown Verified 07/05/21 10:09 PFSH Acute PFSH: Medical History Ataxia Chronic pain COPD (chronic obstructive pulmonary disease) Dyslipidemia Essential tremor History of pulmonary embolism (~06/2019) had s/s of covid 19, but never tested. Assumed possibly related Hypertension Memory loss MGUS (monoclonal gammopathy of unknown significance) Nonalcoholic steatohepatitis Type 2 diabetes mellitus Surgical History H/O arthroscopy of shoulder right H/O bladder repair surgery 2 separate procedures. First one to repair due to prolapse and leaking. Sling repaired 4-6 years later. H/O melanoma excision (~1995) Upper right thigh H/O: hysterectomy (~1975) TVH--benign reasons. Performed [facility]. She has her ovaries. History of phacoemulsification of cataract of both eyes with intraocular lens implantation Family History Family/Other No problems noted. Brother Hypercholesteremia Sister Hypercholesteremia Mother Stroke at age 72 due to cerebral aneurysm rupture Denies family history of Colon cancer Ovarian cancer Diabetes Heart disease Breast cancer Hypertension Uterine cancer Thyroid disease Social History (Updated 07/12/21 @ 22:14 by Manpreet Latif MD) Smoking and tobacco status: never smoked Alcohol intake: never Substance/Drug Use: never Vitals/I&O/Wt Last Vital Signs Temp 98.6 F 07/12/21 21:21 Pulse 82 07/12/21 21:21 Resp 18 07/12/21 21:21 BP 173/89 07/12/21 21:21 Pulse Ox 95 07/12/21 21:21 Weight last 48 hrs Weight 117.934 kg Physical Exam Const: COMMON NORMALS: no acute distress GENERAL APPEARANCE: cooperative and comfortable ORIENTATION/CONSCIOUSNESS: Yes awake, Yes oriented to person and Yes confused; not oriented to place and not oriented to time HENMT: COMMON NORMALS: normocephalic HEAD & SCALP: normocephalic Eye: COMMON NORMALS: Equal, round and reactive pupils present and EOMs intact bilaterally GENERAL EYE: appearance normal, both eyes and all related structures PUPIL: Yes Equal, round and reactive pupils present Neck/C-Spine: COMMON NORMALS: full ROM and no lymphadenopathy THYROID: Thyroid normal Lymph: LYMPHATIC: no lymphadenopathy noted Resp: COMMON NORMALS: normal respiratory effort, No retractions and No use of accessory muscles EFFORT & INSPECTION: Yes audible wheezes AUSCULTATION: wheezes Cardio: COMMON NORMALS: regular rate, regular rhythm, S1 normal heart sound present, S2 normal heart sound present, No gallops present (Cardio), No clicks present (Cardio) and No murmurs present (Cardio) RATE: regular rate RHYTHM: regular rhythm HEART SOUNDS: S1 normal heart sound present and S2 normal heart sound present GI: COMMON NORMALS: Normal to inspection, nondistended, normoactive bowel sounds present, Soft to palpation, non-tender and No hepatosplenomegaly present PALPATION: Yes Soft to palpation and Yes No hepatosplenomegaly present Extremity: COMMON NORMALS: normal to inspection, full ROM and no pedal edema OTHER: Diffuse tremors Neuro: COMMON NORMALS: moves all extremities and no focal motor deficits OTHER: Confused, does not follow neurologic testing Data : 07/12/21 Unknown 07/12/21 Unknown A&P Assessment and plan (1) Pneumonia due to COVID-19 virus: Pneumonia secondary COVID-19 -Currently on 4 L -We will obtain a CT angiogram of the chest, bilateral extremity ultrasound -Remdesivir day 1 of 5, monitor QT interval as is on venlafaxine, trazodone clonazepam -Decadron day 1 of -Baricitinib day 1 of 14 -Chest x-ray does show right basilar opacity, possible secondary bacterial infection, start Rocephin and azithromycin -Sputum cultures, blood cultures, urine bacterial antigens -Vitamin C, vitamin D, zinc -Incentive spirometer flutter valve -Budesonide, ipratropium -Spoke to the , he wants his to be full code -Protonix for GI prophylaxis -Coumadin for DVT prophylaxis we will check INR Type 2 diabetes mellitus -Takes NPH 60 units twice daily -Switch to Levemir 30 units twice daily -Low-dose sliding scale -A1c History of pulmonary embolism -On Coumadin -Check INR History of COPD History of Santos Anxiety depression -Continue venlafaxine, trazodone, clonazepam History of hemangioma right liver History of T8, L4 compression fracture Status: Acute (2) History of pulmonary embolism: Status: Acute (3) COPD (chronic obstructive pulmonary disease): Status: Acute (4) Type 2 diabetes mellitus: Status: Acute Attestations Medical Necessity Statement*: Patient requires hospitalization, inpatient, greater than 2 midnights, for COVID-19 pneumonia Coding Level of Care Code Acute Sharepoint Specialist for [facility] Fwd Diagnoses Pneumonia due to COVID-19 virus U07.1; J12.82 History of pulmonary embolism Z86.711 COPD (chronic obstructive pulmonary disease) J44.9 Type 2 diabetes mellitus E11.9
[2021-07-12 22:20] LABS: INR 1.85 (0.8-1.2)
[2021-07-12 22:33] LABS: Estmated Average Glucose 206; Hemoglobin A1C 8.8 % (4.0-6.0)
[2021-07-12 22:34] LABS: Troponin 5 2HR 124.5 ng/L (0-10); Troponin 5 2HR Delta 104.5 ABS# (0-10)
[2021-07-12 23:08] VITALS: BP 165/88; PULSE 79; RESP 18; TEMP 37.3; O2SAT 97
[2021-07-12] MEDS: aspirin 81 mg Chew Tablet 324 MG PO (23:24)
[2021-07-12 23:52] LABS: Add Urine Microscopic? YES; Bilirubin Urine Neg (Negative); Blood Urine Neg (Negative); Glucose Urine UA 4+ (Normal); Ketones Urine 2+ (Negative); Leukocyte Esterase Urine Negative (Negative); Nitrate Urine Negative (Negative); Protein Urine 1+ (Negative); Urine Appearance Clear (CLEAR); Urine Color Yellow (Yellow); Urobilinogen Urine Norm (Negative); pH Urine 7 (5-7)
[2021-07-12 23:53] LABS: Add Urine Culture? No; Bacteria Urine TRACE /hpf; RBC Urine 0-4 /hpf (0-2); WBC Urine 0-4 /hpf (0-5)
[2021-07-13] VITALS (12 sets, daily range): BP systolic 154–180; BP diastolic 73–92; PULSE 62–78; RESP 16–18; TEMP 36.3–37.1; O2SAT 93–99; BMI 41.9
--- NOTE | 2021-07-13 00:19 | ECG_ITS ---
[facility] Test Date: 2021-07-13 Pat Name: Tamar Mercado Department: Room: ED Gender: Female Nut Threader: : 1945 Requested By: Adriel Ferro Order Number: [id number] Barb MD: Wendy Ramirez M.D. Measurements Intervals [place] Rate: 81 P: 39 NJ: 151 QRS: 25 QRSD: 90 T: 79 QT: 412 QTc: 481 Interpretive Statements SINUS RHYTHM NONSPECIFIC T-WAVE ABNORMALITY Compared to ECG 07/12/2021 21:11:48 No significant changes Electronically Signed On 07-13-2021 17:26:57 ANNUAL CAMPAIGN MANAGER by Wendy Ramirez M.D. [email or web address] campus [email or web address] delta [email or web address] medical [email or web address] healthcare systemDigital Message [id number]
[2021-07-13] MEDS: sodium chloride 0.9% 500 ML IV (00:40)
[2021-07-13] MEDS: pantoprazole 40 mg SDV IVP ×2 (00:46→23:56)
[2021-07-13] MEDS: dexamethasone 10 mg/mL INJ 6 MG IVP ×2 (00:47→23:57)
[2021-07-13] MEDS: FUROsemide 10 mg/mL SDV 2mL 20 MG IVP (00:49)
[2021-07-13] MEDS: cefTRIAXone 1,000 MG in sodium chloride 0.9% (plus) 50 ML 100 MG IV ×2 (00:50→23:56)
[2021-07-13 01:25] LABS: Troponin 5 6HR 149.4 ng/L (0-10); Troponin 5 6HR Delta 129.4 ng/L (0-12)
[2021-07-13] MEDS: enoxaparin 120 mg/0.8 mL Syringe SUBCUT ×2 (02:19→15:08)
[2021-07-13] MEDS: CLONazepam 1 mg Tablet PO (02:20)
[2021-07-13] MEDS: remdesivir 200 MG in sodium chloride 0.9% (100 ml) 60 ML 100 MG IV (02:22)
[2021-07-13] MEDS: azithromycin 500 MG in sodium chloride 0.9% 250 ML 250 MG IV (03:30)
--- NOTE | 2021-07-13 06:00 | ECG_ITS ---
[facility] Test Date: 2021-07-13 Pat Name: Tamar Mercado Department: Room: ED Gender: Female Director Dance: : 1945 Requested By: Manpreet Latif Order Number: [id number] Barb MD: Wendy Ramirez M.D. Measurements Intervals [place] Rate: 72 P: 35 PA: 166 QRS: 17 QRSD: 90 T: 78 QT: 455 QTc: 499 Interpretive Statements SINUS RHYTHM NONSPECIFIC T-WAVE ABNORMALITY PROLONGED QT INTERVAL Compared to ECG 07/13/2021 00:34:27 Prolonged QT interval now present T-wave abnormality still present Electronically Signed On 07-13-2021 17:26:32 SURGICAL BRACE MAKER by Wendy Ramirez M.D. [id number]
[2021-07-13] MEDS: iohexol 350 mg/mL 100 mL Btl IV (06:35)
[2021-07-13] MEDS: ipratropium-albuterol 3 mL Neb INHALATION ×2 (07:38→16:17)
[2021-07-13] MEDS: budesonide 0.5 mg/2 mL Neb INHALATION (07:38)
[2021-07-13 08:00] LABS: Glucose Point of Care 339 mg/dL (70-110)
--- NOTE | 2021-07-13 08:00 | CTR_ITS ---
PROCEDURE INFORMATION: Exam: CTA Chest With Contrast Exam date and time: 07/13/2021 8:00 AM Age: 76 years old Clinical indication: Shortness of breath; Additional info: Covid 19 TECHNIQUE: Imaging protocol: Computed tomographic angiography of the chest with contrast. 3D rendering (Not supervised by radiologist): MIP and/or 3D reconstructed images were created by the technologist. Radiation optimization: All CT scans at this facility use at least one of these dose optimization techniques: automated exposure control; mA and/or kV adjustment per patient size (includes targeted exams where dose is matched to clinical indication); or iterative reconstruction. Contrast material: OMNI 350; Contrast volume: 63 ml; Contrast route: INTRAVENOUS (IV); COMPARISON: CT angio chest PE protcl [id number] 07/19/2019 8:06 AM RADIATION DOSE METRICS: Total DLP (mGy-cm): 582.31 FINDINGS: Pulmonary arteries: Normal. No pulmonary emboli. Aorta: No aortic aneurysm. No aortic dissection. Lungs: Diffuse bronchial wall thickening. Areas of curvilinear subsegmental atelectasis or scar noted in the right upper lobe, new from most recent comparison. Minor scarring in the right middle lobe and lung bases again noted. 2 cm pneumatocele noted in the posterior right lung base. No consolidation. No masses. Pleural spaces: Unremarkable. No pneumothorax. No pleural effusion. Heart: Coronary artery calcifications noted. No cardiomegaly. No pericardial effusion. Lymph nodes: Mildly enlarged right hilar nodes measuring up to 0.9 cm in short axis, series 2, image 208. Enlarged subcarinal lymph nodes also noted measuring up to 1.7 cm in short axis series 2, image 175. Bones/joints: No acute fracture. Chronic severe depression deformity of T8. Soft tissues: Unremarkable. CT/CT angio chest PE protcl [id number] IMPRESSION: 1. Negative for pulmonary embolism. 2. Diffuse bronchial wall thickening consistent with bronchitis. 3. Curvilinear areas of subsegmental atelectasis or scarring in the right upper lobe are new from most recent comparison. 4. Nonspecific enlarged right hilar and mediastinal lymph nodes. 5. Chronic severe compression deformity of T8.
--- NOTE | 2021-07-13 08:00 | USCV_ITS ---
RogelioTamar Age: 76 Gender: F : 1945 Exam Date: 07/13/2021 07:02 Ordering Phys: Manpreet Latif MD Technologist: Oly Morris Exam Location: [facility] [place] Indication: NSTEMI BP: 180 / 90 HR: 68 Rhythm: Sinus Technical Quality: Technically difficult study MEASUREMENTS (Male / Female) Normal Values 2D ECHO LV Diastolic Diameter PLAX 5.3 cm 4.2 - 5.9 / 3.9 - 5.3 cm LV Systolic Diameter PLAX 3.4 cm IVS Diastolic Thickness 1.6 cm 0.6 - 1.0 / 0.6 - 0.9 cm IVS Systolic Thickness 2.7 cm LVPW Diastolic Thickness 1.9 cm 0.6 - 1.0 / 0.6 - 0.9 cm LVPW Systolic Thickness 2.0 cm LVOT Diameter 2.0 cm LV Ejection Fraction 2D Teich 64.5 % LV Ejection Fraction MOD 2C 59.6 % LV Ejection Fraction 2C AL 61.8 % LA Diameter 3.8 cm LA Width 3.5 cm LA Height 4.6 cm RA Width 3.6 cm RA Height 4.7 cm Aorta at Sinotubular Diameter 3.1 cm M-MODE Aortic Annulus Diameter 3.0 cm LA Ao Ratio MM 1.3 DOPPLER AV Peak Velocity 139.0 cm/s LVOT Peak Velocity 81.0 cm/s AV Area Cont Eq vti 2.0 cm squared AV Area Cont Eq pk 1.9 cm squared MV Peak Velocity 88.0 cm/s MV Area PHT 3.4 cm squared Mitral E to A Ratio 0.6 MV E' Velocity 24.5 cm/s Mitral E to MV E' Ratio 8.5 Mitral E to LV E' Lateral Ratio 8.5 Mitral E to LV E' Septal Ratio 8.5 TR Peak Velocity 273.0 cm/s TR Peak Gradient 29.8 mmHg TR Mean Velocity 216.9 cm/s TR Mean Gradient 20.7 mmHg TR Velocity Time Integral 85.9 cm TV Peak E Velocity 49.0 cm/s Right Atrial Pressure 3.0 mmHg Pulmonary Artery Systolic Pressu 32.8 mmHg FINDINGS Left Ventricle Possibly normal LV size and ejection fraction of around 60%. Segmental wall motion analysis difficult because of the poor ultrasonic window. Appears to have mild concentric left ventricular hypertrophy. Right Ventricle Normal RV size ejection fraction Right Atrium Possibly of normal size Left Atrium Mildly increased left atrial size. Mitral Valve No gross abnormalities noted Aortic Valve The leaflets could not be visualized well. No gross abnormalities noted Tricuspid Valve Trace to mild tricuspid valve regurgitation. Pulmonic Valve Pulmonic valve not well visualized. Pericardium No pericardial effusion. Aorta Normal aortic annulus size. CONCLUSIONS Possibly normal LV size and ejection fraction of around 60%. Segmental wall motion analysis difficult because of the poor ultrasonic window. Appears to have mild concentric left ventricular hypertrophy. Normal RV size ejection fraction. Trace to mild tricuspid valve regurgitation. There is no pericardial effusion. Technically difficult study because of the poor ultrasonic window. Dr Kevin Trevizo MD FACC (Electronically Signed) Final Date: 14 July 2021 06:12 S
--- NOTE | 2021-07-13 08:00 | USCV_ITS ---
Tamar Mercado Age: 76 Gender: F : 1945 Exam Date: 07/13/2021 06:48 Ordering Phys: Manpreet Latif MD Technologist: Oly Morris Exam Location: [facility] [place] Indication: EVAL FOR DVT PROCEDURES: Venous duplex imaging was performed in bilateral lower extremities. Venous duplex imaging was performed in only the left lower extremity. In addition, the posterior tibial and peroneal trunk were evaluated. Serial compression, augmentation maneuvers, and spectral Doppler flow evaluation were performed. FINDINGS: Normal 2-D Doppler and augmentation and compressibility throughout the lower extremity venous structures. Additional imaging through the proximal calf veins also reveals no thrombus. Limited evaluation of the greater saphenous vein is patent with no thrombus. CONCLUSIONS No DVT bilateral lower extremities. Dr. Lorna Lopez DO (Electronically Signed) Final Date: 13 July 2021 08:15 S
[2021-07-13] MEDS: zinc gluconate 50 mg Tablet PO (08:07)
[2021-07-13] MEDS: docusate sodium 100 mg Capsule PO ×2 (08:07→16:44)
[2021-07-13] MEDS: lisinopril 10 mg Tablet PO (08:07)
[2021-07-13] MEDS: cholecalciferol (vitamin D3) 1,000 unit Tablet 2000 UNIT PO (08:07)
[2021-07-13] MEDS: venlafaxine ER (24HR) 150 mg Capsule PO ×2 (08:08→16:44)
[2021-07-13] MEDS: gabapentin 300 mg Capsule PO ×2 (08:08→16:44)
[2021-07-13] MEDS: aspirin 81 mg EC Tablet PO (08:08)
[2021-07-13] MEDS: atorvastatin 40 mg Tablet 20 MG PO (08:08)
[2021-07-13] MEDS: ascorbic acid 500 mg Tablet PO ×2 (08:08→16:44)
[2021-07-13] MEDS: insulin lispro 100 unit/1 mL SUBCUT ×2 (08:08→18:30)
[2021-07-13 08:11] LABS: Basophils # 0.1 10^3/uL (0.0-0.1); Basophils % 0.5 %; Eosinophils # 0.6 10^3/uL (0.0-0.8); Eosinophils % 5.2 %; Hemoglobin 13.5 g/dL (11.5-15.3); Lymphocytes # 3.7 10^3/uL (0.8-4.8); Lymphocytes % 33.4 %; Mean Corpuscular HGB Conc 32.1 g/dL (30.0-36.0); Mean Corpuscular Hemoglobin 27.8 pg (28.0-34.0); Mean Corpuscular Volume 86.6 fl (81-99); Mean Platelet Volume 10.5 fL (7.4-10.4); Monocytes # 0.4 10^3/uL (0.2-0.9); Monocytes % 3.5 %; Neutrophils # 6.28 10^3/uL (1.8-7.7); Neutrophils % 56.6 %; Nucleated Red Blood Cells % 0 %; Platelet Count 303 10^3/cmm (130-400); Red Blood Count 4.85 10^6/uL (4.1-5.3); Red Cell Distribution Width 14.2 % (12.1-15.1); White Blood Count 11.1 10^3/uL (4.0-10.0)
[2021-07-13 08:12] LABS: NT Pro B Type Natriuretic Pept 5931 pg/mL (0-450); Procalcitonin 0.24 ng/mL (0-0.5)
[2021-07-13 08:18] LABS: Troponin T (5th) Once 109 ng/L (0-10)
[2021-07-13 08:23] LABS: Alanine Aminotransferase 13 U/L (0-33); Albumin Level 3.4 g/dL (3.5-5.2); Alkaline Phosphatase 204 IU/L (35-105); Anion Gap 17.9 (5-19); Aspartate Amino Transferase 24 U/L (0-32); Blood Urea Nitrogen 8 mg/dL (8-23); Carbon Dioxide 27 mmol/L (22-29); Chloride 93 mmol/L (98-107); Creatine Phosphokinase 71 U/L (26-192); Glucose 347 mg/dL (65-115); Magnesium 1.8 mg/dL (1.7-2.3); Osmolality Calculated 290 mOsm/kg (285-295); Phosphorus 2.3 mg/dL (2.5-4.5); Potassium 3.9 mmol/L (3.5-5.1); Sodium 134 mmol/L (136-145); Total Bilirubin 0.2 mg/dL (0.15-1.2); Total Protein 6.4 g/dL (6.6-8.7)
[2021-07-13 08:27] LABS: INR 1.82 (0.8-1.2)
[2021-07-13 08:30] LABS: D Dimer 0.41 ug/mIFEU (0-0.59)
--- NOTE | 2021-07-13 08:52 | PC.PHAR ---
pts marga [phone] verified pts medications
[2021-07-13 13:03] LABS: Glucose Point of Care 343 mg/dL (70-110)
--- NOTE | 2021-07-13 13:42 | PM.PN ---
Subjective Subjective: Interval history: History and physical reviewed. She denies any chest pain currently. Does not feel too short of breath currently. Medications: Reviewed: Yes Vitals/I&O/Wt Last Vital Signs Temp 99.1 F 07/12/21 23:08 Pulse 75 07/13/21 12:18 Resp 17 07/13/21 12:18 BP 169/89 07/13/21 08:57 Pulse Ox 98 07/13/21 12:18 07/12/21 07/13/21 07/13/21 22:59 06:59 14:59 Intake Total 551.667 / 551.667 Balance 551.667 / 551.667 Weight last 48 hrs Weight 117.934 kg Physical Exam Narrative: EXAM NARRATIVE: General exam no distress, seems somewhat distant. Right upper extremity tremor noted which she reports is old. Neck is supple Cardiovascular regular rate and rhythm without murmur Lungs coarse bilaterally Abdomen is soft. Positive bowel sounds Extremities no cyanosis clubbing or edema Data : 07/13/21 08:00 07/13/21 07:15 Micro: Microbiology 07/12/21 23:00 Legionella Urinary Antigen - Final Urine,Clean Catch A&P Assessment and plan (1) Pneumonia due to COVID-19 virus: Currently on 2 L. Continue remdesivir, dexamethasone, baricitinib Venous duplex, CTA negative for thrombus Pulmonary toilet Incentive spirometry Rocephin, azithromycin empirically Status: Acute (2) History of pulmonary embolism: On Coumadin. Convert to Lovenox. Check INR tomorrow. Status: Acute (3) COPD (chronic obstructive pulmonary disease): Pulmonary toilet. No current evidence of exacerbation. Status: Acute (4) Type 2 diabetes mellitus: Long-acting insulin, sliding scale insulin Status: Acute Plan Significant elevation of troponin, delta. Check echocardiogram. Cardiology consultation. Anticoagulation with Lovenox. Continue statin. Add low-dose beta-jan. Cardiology consultation. Attestations Medical Necessity Statement*: Needs continued hospitalization secondary to positive Covid, elevated troponin. This will need more definitive investigation and treatment. Coding Level of Care Code Acute Sorter/Assay Tech for [facility] Fwd Diagnoses Pneumonia due to COVID-19 virus U07.1; J12.82 History of pulmonary embolism Z86.711 COPD (chronic obstructive pulmonary disease) J44.9 Type 2 diabetes mellitus E11.9
[2021-07-13] MEDS: HYDROcodone-acetaminophen 10-325 mg Tablet 1 TAB PO (16:44)
[2021-07-13] MEDS: remdesivir 100 MG in sodium chloride 0.9% (100 ml) 80 ML IV (16:46)
[2021-07-13 16:56] LABS: Glucose Point of Care 324 mg/dL (70-110)
--- NOTE | 2021-07-13 20:18 | PM.CONSULT ---
Providers/Reason For Consult Consulting Physician/Specialty*: ROSITA Trevizo MD/neurology Reason for Consult*: Patient with elevated troponin T/multiple risk factors for coronary artery disease/COVID-19 Requesting Physician: Dr. Michael Attending Physician: Blair Michael MD Primary Care Provider: Gurinder Allen History of Present Illness History of Present Illness Tamar Mercado is a 76 year old female with a history of morbid obesity, pulmonary embolism, monoclonal gammopathy, type 2 diabetes, hypertension, dyslipidemia, etc. is presenting with progressive shortness of breath. She was found to be COVID-19 positive. She also was found to have elevated troponin T with a significant delta. She had a 2-hour delta of 104 and a 6-hour delta of 129. Cardiology consult is requested for further cardiac evaluation recommendations. Have multiple medical problems including intermittent COPD exacerbation, morbid obesity, nonalcoholic steatohepatitis, memory problems, etc. She is not able to give any detailed history. she denies any chest pain. She has the baseline shortness of breath with activities. She was mainly brought to the hospital for increasing shortness of breath and a low-grade fever. She was requiring 4 L of oxygen by nasal cannula at the time of admission. She has no previous history for any coronary artery disease or myocardial infarction. She currently denies any chest pain or chest tightness. No other specific symptoms. Review of Systems Narrative: CONSTITUTIONAL: No fever or chills. EYES: Denies any visual disturbance ENT: No acute visual or auditory disturbances. CARDIOVASCULAR: As mentioned above. RESPIRATORY: History of COPD/reactive airway disease with intermittent exacerbations. GASTROINTESTINAL: History of chronic diarrhea. GENITOURINARY: No dysuria or hematuria. INTEGUMENTARY: No skin rashes or history of skin cancer. NEURO: History of memory problems/ataxia/tremor PSYCHIATRIC: No history of psychosis or major depression. HEMATOLOGIC: No bleeding disorders or significant anemia. ENDOCRINE: Type 2 diabetes MUSCULOSKELETAL: difficulty in ambulation ALLERGY/IMMUNOLOGY: As mentioned above. Medications/Allergies Home Medications Medication Instructions Recorded Confirmed Last Taken Type aspirin 81 mg tablet,delayed 81 mg PO QAM 06/27/19 07/13/21 07/18/19 08:00 History release (Adult Aspirin Regimen) cholecalciferol (vitamin D3) 25 2,000 unit PO QAM 06/27/19 07/13/21 07/18/19 08:00 History mcg (1,000 unit) capsule trazodone 300 mg tablet 300 mg PO BEDTIME tab 06/27/19 07/13/21 07/17/19 22:00 History gabapentin 300 mg capsule 300 mg PO TID 07/19/19 07/13/21 07/18/19 08:00 History temazepam 30 mg capsule 30 mg PO BEDTIME cap 04/27/20 07/13/21 Unknown History warfarin 5 mg tablet 5 mg PO QAM 04/27/20 07/13/21 Unknown History albuterol sulfate 2.5 mg INHALATION Q4H PRN 07/13/21 07/13/21 Unknown History albuterol sulfate 90 mcg/actuation 2 puff INHALATION Q4H PRN 07/13/21 07/13/21 Unknown History aerosol inhaler bupropion HCl 300 mg 24 hr tablet, 300 mg PO QAM 07/13/21 07/13/21 Unknown History extended release docusate sodium 100 mg capsule 200 mg PO BID 07/13/21 07/13/21 Unknown History (Colace) hydrocodone 10 mg-acetaminophen 1 tab PO Q6H PRN 07/13/21 07/13/21 Unknown History 325 mg tablet hydroxyzine HCl 50 mg tablet 50 mg PO TID 07/13/21 07/13/21 Unknown History insulin human U-100 NPH-regulr 60 unit SUBCUT BID 07/13/21 07/13/21 Unknown History 70-30 mix 100 unit/mL subcutaneous susp (Novolin 70/30 U-100 Insulin) lisinopril 10 mg tablet 10 mg PO QAM 07/13/21 07/13/21 Unknown History lovastatin 20 mg tablet 20 mg PO QPM 07/13/21 07/13/21 Unknown History melatonin 5 mg tablet 5 mg PO BEDTIME 07/13/21 07/13/21 Unknown History omeprazole 40 mg capsule,delayed 40 mg PO QAM 07/13/21 07/13/21 Unknown History release penicillin V potassium 500 mg 500 mg PO QID 07/13/21 07/13/21 Unknown History tablet venlafaxine 150 mg 150 mg PO BID 07/13/21 07/13/21 Unknown History capsule,extended release 24 hr Allergies Allergy/AdvReac Type Severity Reaction Status Date / Time cortisone Allergy Unknown Verified 07/13/21 08:42 latex Allergy unknown Verified 07/13/21 08:42 oxycodone Allergy unknown Verified 07/13/21 08:42 primidone Allergy Unknown Verified 07/13/21 08:42 ticagrelor [From Brilinta] Allergy Unknown Verified 07/13/21 08:42 Current Medications Generic Name Dose Route Start Last Admin Trade Name Freq PRN Reason Stop Dose Admin Hydrocodone Bitart/Acetaminophen 1 tab 07/13/21 01:23 07/13/21 16:44 Hydrocodone-Acetaminophen 10-325 Mg Tablet PO 1 tab Q6H PRN Administration Pain Albuterol/Ipratropium 3 ml 07/13/21 08:00 07/13/21 16:17 Ipratropium-Albuterol 3 Ml Neb INHALATION 3 ml QID.RESPIRATORY PARRISH Administration Ascorbic Acid 500 mg 07/13/21 09:00 07/13/21 16:44 Ascorbic Acid 500 Mg Tablet PO 500 mg BID PARRISH Administration Aspirin 81 mg 07/13/21 09:00 07/13/21 08:08 Aspirin 81 Mg Ec Tablet PO 81 mg DAILY PARRISH Administration Atorvastatin Calcium 20 mg 07/13/21 09:00 07/13/21 08:08 Atorvastatin 40 Mg Tablet PO 20 mg DAILY PARRISH Administration Baricitinib 4 mg 07/13/21 00:30 07/13/21 02:20 Baricitinib 2 Mg Tablet PO 07/26/21 00:31 4 mg Q24H PARRISH Administration Budesonide 0.5 mg 07/13/21 08:00 07/13/21 07:38 Budesonide 0.5 Mg/2 Ml Neb INHALATION 0.5 mg BID.RESPIRATORY PARRISH Administration Clonazepam 1 mg 07/12/21 23:33 07/13/21 02:20 Clonazepam 1 Mg Tablet PO 1 mg TID PRN Administration anxiety Dexamethasone 6 mg 07/12/21 23:33 07/13/21 00:47 Dexamethasone 10 Mg/Ml Inj IVP 6 mg Q24H PARRISH Administration Docusate Sodium 100 mg 07/13/21 09:00 07/13/21 16:44 Docusate Sodium 100 Mg Capsule PO 100 mg BID PARRISH Administration Enoxaparin Sodium 120 mg 07/13/21 02:00 07/13/21 15:08 Enoxaparin 120 Mg/0.8 Ml Syringe SUBCUT 120 mg Q12H PARRISH Administration Gabapentin 300 mg 07/13/21 09:00 07/13/21 16:44 Gabapentin 300 Mg Capsule PO 300 mg BID PARRISH Administration Remdesivir 100 mg/ Sodium 80 mls @ 100 mls/hr 07/13/21 18:00 07/13/21 17:34 Chloride IV 07/16/21 18:47 Infused Q24H PARRISH Infusion Ceftriaxone Sodium 1,000 mg/ 50 mls @ 100 mls/hr 07/12/21 23:33 07/13/21 02:31 Sodium Chloride IV Infused Q24H PARRISH Infusion Protocol Azithromycin 500 mg/ Sodium 250 mls @ 250 mls/hr 07/12/21 23:33 07/13/21 06:07 Chloride IV Infused Q24H PARRISH Infusion Protocol Insulin Detemir 30 unit 07/12/21 23:33 07/13/21 14:10 Insulin Detemir 100 Units/1 Ml SUBCUT 30 unit Q12H PARRISH Administration Insulin Human Lispro 0 unit 07/13/21 08:00 07/13/21 18:30 Insulin Lispro 100 Unit/1 Ml SUBCUT 10 unit TIDWM PARRISH Administration Protocol Lisinopril 10 mg 07/13/21 09:00 07/13/21 08:07 Lisinopril 10 Mg Tablet PO 10 mg DAILY PARRISH Administration Pantoprazole Sodium 40 mg 07/12/21 23:33 07/13/21 00:46 Pantoprazole 40 Mg Sdv IVP 40 mg Q24H PARRISH Administration Venlafaxine HCl 150 mg 07/13/21 09:00 07/13/21 16:44 Venlafaxine Er (24hr) 150 Mg Capsule PO 150 mg BID PARRISH Administration Vitamin D 2,000 unit 07/13/21 09:00 07/13/21 08:07 Cholecalciferol (Vitamin D3) 1,000 Unit Tablet PO 2,000 unit DAILY PARRISH Administration Zinc Gluconate 50 mg 07/13/21 09:00 07/13/21 08:07 Zinc Gluconate 50 Mg Tablet PO 50 mg DAILY PARRISH Administration PFSH Acute PFSH: Medical History Ataxia Chronic pain COPD (chronic obstructive pulmonary disease) Dyslipidemia Essential tremor History of pulmonary embolism (~06/2019) had s/s of covid 19, but never tested. Assumed possibly related Hypertension Memory loss MGUS (monoclonal gammopathy of unknown significance) Nonalcoholic steatohepatitis Type 2 diabetes mellitus Surgical History H/O arthroscopy of shoulder right H/O bladder repair surgery 2 separate procedures. First one to repair due to prolapse and leaking. Sling repaired 4-6 years later. H/O melanoma excision (~1995) Upper right thigh H/O: hysterectomy (~1975) TVH--benign reasons. Performed [facility]. She has her ovaries. History of phacoemulsification of cataract of both eyes with intraocular lens implantation Family History Family/Other No problems noted. Brother Hypercholesteremia Sister Hypercholesteremia Mother Stroke at age 72 due to cerebral aneurysm rupture Denies family history of Colon cancer Ovarian cancer Diabetes Heart disease Breast cancer Hypertension Uterine cancer Thyroid disease Social History Smoking and tobacco status: never smoked Alcohol intake: never Vitals/I&O/Wt Last Vital Signs Temp 97.4 F L 07/13/21 15:49 Pulse 69 07/13/21 16:17 Resp 18 07/13/21 16:17 BP 176/73 07/13/21 15:49 Pulse Ox 97 07/13/21 16:17 07/13/21 07/13/21 07/13/21 06:59 14:59 22:59 Intake Total 551.667 / 551.667 280 / 280 Balance 551.667 / 551.667 280 / 280 Weight last 48 hrs Weight 260 lb Weight 260 lb Physical Exam Narrative: EXAM NARRATIVE: GENERAL: The patient is somewhat drowsy. She still has an audible wheeze. HEENT: Minimal pallor. No, icterus or lymphadenopathy.Oral cavity: There are no mucous membrane lesions. NECK: Trachea appears to be central. No masses noted. No JVD or thyromegaly appreciated. RESPIRATORY: Breath sounds are heard bilaterally with scattered coarse crackles. Diminished intensity of breath on the basis. BREASTS: Deferred. HEART: The heart sounds are normal. No S3 or S4. Short systolic murmur in the left sternal border. No diastolic murmurs. ABDOMEN: Abdomen is obese and nontender. : Deferred. RECTAL: Deferred. LYMPHATIC: No lymphadenopathy noted in the neck or groin. EXTREMITIES: 1+ edema of the both lower lower extremities. MUSCULOSKELETAL: No acute joint deformities or swelling SKIN: There are no significant rashes or ecchymosis NEUROPSYCHIATRIC: Resting tremor, especially of the right upper extremity. Data : 07/14/21 04:56 07/14/21 04:56 Other Labs: Laboratory Last Values WBC 11.1 10^3/uL (4.0-10.0) H 07/13/21 08:00 RBC 4.85 10^6/uL (4.1-5.3) 07/13/21 08:00 Hgb 13.5 g/dL (11.5-15.3) 07/13/21 08:00 Hct 42.0 % (37.0-47.0) 07/13/21 08:00 MCV 86.6 fl (81-99) 07/13/21 08:00 MCH 27.8 pg (28.0-34.0) L 07/13/21 08:00 MCHC 32.1 g/dL (30.0-36.0) 07/13/21 08:00 RDW 14.2 % (12.1-15.1) 07/13/21 08:00 Plt Count 303 10^3/cmm (130-400) 07/13/21 08:00 MPV 10.5 fL (7.4-10.4) H 07/13/21 08:00 Neut % (Auto) 56.6 % 07/13/21 08:00 Lymph % (Auto) 33.4 % 07/13/21 08:00 [place] % (Auto) 3.5 % 07/13/21 08:00 Eos % (Auto) 5.2 % 07/13/21 08:00 Baso % (Auto) 0.5 % 07/13/21 08:00 Neut # (Auto) 6.28 10^3/uL (1.8-7.7) 07/13/21 08:00 Lymph # (Auto) 3.7 10^3/uL (0.8-4.8) 07/13/21 08:00 [place] # (Auto) 0.4 10^3/uL (0.2-0.9) 07/13/21 08:00 Eos # (Auto) 0.6 10^3/uL (0.0-0.8) 07/13/21 08:00 Baso # (Auto) 0.1 10^3/uL (0.0-0.1) 07/13/21 08:00 Nucleated RBC % (auto) 0 % 07/13/21 08:00 Nucleated RBCs # 0.0 /100WBC 07/13/21 08:00 PT 21.50 SECONDS (12.1-14.9) H 07/13/21 08:00 INR 1.82 (0.8-1.2) H 07/13/21 08:00 D-Dimer 0.41 ug/mIFEU (0-0.59) 07/13/21 08:00 Specimen Type Arterial 07/12/21 19:50 Sample Site Radial, left 07/12/21 19:50 ABG pH 7.46 (7.35-7.45) H 07/12/21 19:50 ABG pCO2 39.9 mmHg (35-45) 07/12/21 19:50 ABG pO2 60.2 mmHg (80.0-100.0) L 07/12/21 19:50 ABG HCO3 28.6 mmol/L (22-26) H 07/12/21 19:50 ABG Base Excess 4.5 mmol/L (-2.0-2.0) H 07/12/21 19:50 Joey Test N/a 07/12/21 19:50 Hematocrit 42.0 % (37-47) 07/12/21 19:50 O2 Delivery Device Nc 07/12/21 19:50 O2 Liters/Min 3.0 % 07/12/21 19:50 C D Still Operator ID [email or web address] 07/12/21 19:50 Sodium 134 mmol/L (136-145) L 07/13/21 07:15 Potassium 3.9 mmol/L (3.5-5.1) 07/13/21 07:15 Chloride 93 mmol/L (98-107) L 07/13/21 07:15 Carbon Dioxide 27 mmol/L (22-29) 07/13/21 07:15 Anion Gap 17.9 (5-19) 07/13/21 07:15 BUN 8 mg/dL (8-23) 07/13/21 07:15 Creatinine 0.6 mg/dL (0.5-0.9) 07/13/21 07:15 GFR Calculation Not Reportable 07/13/21 07:15 Glucose 347 mg/dL (65-115) H 07/13/21 07:15 POC Glucose 324 mg/dL (70-110) H 07/13/21 16:45 Estimat Average Glucose 206 07/12/21 18:55 Hemoglobin A1c 8.8 % (4.0-6.0) H 07/12/21 18:55 Calculated Osmolality 290 mOsm/kg (285-295) 07/13/21 07:15 Calcium 8.0 mg/dL (8.5-10.5) L 07/13/21 07:15 Phosphorus 2.3 mg/dL (2.5-4.5) L 07/13/21 07:15 Magnesium 1.8 mg/dL (1.7-2.3) 07/13/21 07:15 Total Bilirubin 0.2 mg/dL (0.15-1.2) 07/13/21 07:15 AST 24 U/L (0-32) 07/13/21 07:15 ALT 13 U/L (0-33) 07/13/21 07:15 Alkaline Phosphatase 204 IU/L (35-105) H 07/13/21 07:15 Creatine Kinase 71 U/L (26-192) 07/13/21 07:15 Troponin T Gen 5 ng/L 109 ng/L (0-10) H* 07/13/21 07:15 Troponin T Baseline 20 ng/L (0-10) H 07/12/21 Unknown Troponin T 120 Minute 124.5 ng/L (0-10) H 07/12/21 20:50 Delta Troponin T 104.5 ABS# (0-10) H* 07/12/21 20:50 Troponin T Hi Sens 6Hr 149.4 ng/L (0-10) H 07/13/21 00:52 Troponin T Hi Sens 6Hr Delta 129.4 ng/L (0-12) H* 07/13/21 00:52 C-Reactive Protein 58.0 mg/L (0.0-4.9) H 07/13/21 07:15 NT-Pro-B Natriuret Pep 5931 pg/mL (0-450) H 07/13/21 07:15 Total Protein 6.4 g/dL (6.6-8.7) L 07/13/21 07:15 Albumin 3.4 g/dL (3.5-5.2) L 07/13/21 07:15 Globulin 3.0 g/dL (1.3-4.6) 07/13/21 07:15 Procalcitonin 0.24 ng/mL (0-0.5) 07/13/21 07:15 TSH 2.16 uIU/mL (0.27-4.20) 07/12/21 Unknown Urine Color Yellow (Yellow) 07/12/21 23:00 Urine Appearance Clear (CLEAR) 07/12/21 23:00 Urine pH 7 (5-7) 07/12/21 23:00 Ur Specific [place] 1.010 (1.005-1.030) 07/12/21 23:00 Urine Protein 1+ (Negative) H 07/12/21 23:00 Urine Glucose (UA) 4+ (Normal) H 07/12/21 23:00 Urine Ketones 2+ (Negative) H 07/12/21 23:00 Urine Blood Neg (Negative) 07/12/21 23:00 Urine Nitrate Negative (Negative) 07/12/21 23:00 Urine Bilirubin Neg (Negative) 07/12/21 23:00 Urine Urobilinogen Norm mg/dL (Negative) 07/12/21 23:00 Ur Leukocyte Esterase Negative (Negative) 07/12/21 23:00 Urine RBC 0-4 /hpf (0-2) H 07/12/21 23:00 Urine WBC 0-4 /hpf (0-5) H 07/12/21 23:00 Ur Squamous Epith Cells 5-10 /hpf (0-5) H 07/12/21 23:00 Amorphous Sediment Not Reportable 07/12/21 23:00 Urine Bacteria Trace /hpf (NONE) 07/12/21 23:00 Urine Yeast 1+ /hpf H 07/12/21 23:00 Influenza Type A Ag Negative (Negative) 07/12/21 20:55 Influenza Type B Ag Negative (Negative) 07/12/21 20:55 SARS-CoV-2 Ag (Rapid) Positive (Negative) H 07/12/21 18:55 Micro: Microbiology 07/12/21 23:00 Legionella Urinary Antigen - Final Urine,Clean Catch EKG 1: My Interpretation: The EKG showed normal sinus rhythm with nonspecific T wave changes. QT prolonged action with a QTC of 499. EKG computer-generated impression: Chest X-Ray 07/12/21 18:19 IMPRESSION: Peripheral right basilar opacity suspicious for pneumonia. Head CT 07/12/21 18:19 IMPRESSION: 1. No acute intracranial abnormality. 2. Mild diffuse cerebral atrophy and sequela of chronic small vessel ischemic disease. Chest CTA 07/13/21 08:00 IMPRESSION: 1. Negative for pulmonary embolism. 2. Diffuse bronchial wall thickening consistent with bronchitis. 3. Curvilinear areas of subsegmental atelectasis or scarring in the right upper lobe are new from most recent comparison. 4. Nonspecific enlarged right hilar and mediastinal lymph nodes. 5. Chronic severe compression deformity of T8. A&P Assessment and plan (1) Elevated troponin: The elevated troponin T, could be related to type IV myocardial infarction. In view of the patient multiple risk factors and the abnormal EKG, possibility of her having significant coronary artery disease is very high. Hemodynamically she seems to be stable. She is denies any chest pain. But her communication is very poor. At this point, it may be appropriate to optimize her medical treatment. I have not started on Plavix, statin drug and heparin. The oral anticoagulant may be held at this point. She also be treated with topical nitrates. Echocardiogram would be helpful to evaluate the LV function. Status: Acute (2) Type 2 diabetes mellitus: Aggressive management as per the primary Status: Acute (3) Pneumonia due to COVID-19 virus: Management as per the primary service Status: Acute (4) History of pulmonary embolism: IV anticoagulation would be appropriate at this point Status: Acute (5) Hypoxemia: Measures to maintain appropriate oxygenation. Status: Acute Plan Her other problems are Essential benign hypertension, currently of stage II Type 2 diabetes Dyslipidemia Gait disorder/ataxia Resting tremor COPD with intermittent exacerbations MGUS FUENTES Because of the patient's relatively asymptomatic status with respect to her coronary event, it may be appropriate to hold off on any invasive intervention until her Covid status improves. Optimize her medical treatment will be the plan of action at this point Based on the patient's clinical progress and the results of the above, further recommendations will be made. Thank you for the opportunity to eval this patient and make these recommendations Consult Attestations Medical Necessity Statement: Patient requires continued hospital stay for close monitoring and further management Coding Level of Care Code Acute Therapeutic Recreation Leader for Chg Fwd History Detailed Exam Detailed Medical Decision Making High Complexity Diagnoses Elevated troponin R77.8 Type 2 diabetes mellitus E11.9 Pneumonia due to COVID-19 virus U07.1; J12.82 History of pulmonary embolism Z86.711 Hypoxemia R09.02
[2021-07-13] MEDS: clopidogrel 300 mg Tablet PO (21:00)
[2021-07-13] MEDS: metoprolol tartrate 25 mg Tablet 12.5 MG PO (21:00)
[2021-07-13] MEDS: trazodone 150 mg Tablet 300 MG PO (21:01)
[2021-07-14] VITALS (13 sets, daily range): BP systolic 152–201; BP diastolic 62–96; PULSE 66–90; RESP 16–19; TEMP 36.5–37.1; O2SAT 2–96
[2021-07-14] MEDS: azithromycin 500 MG in sodium chloride 0.9% 250 ML 250 MG IV (00:25)
[2021-07-14 02:54] LABS: Glucose Point of Care 351 mg/dL (70-110)
[2021-07-14] MEDS: enoxaparin 120 mg/0.8 mL Syringe SUBCUT ×2 (03:01→15:27)
--- NOTE | 2021-07-14 06:00 | ECG_ITS ---
[facility] Test Date: 2021-07-14 Pat Name: Tamar Mercado Department: Room: 266 Gender: Female Quilter Fixer: : 1945 Requested By: Manpreet Latif Order Number: [id number] Barb MD: Kevin Trevizo M.D. Measurements Intervals Roberts Rate: 68 P: 45 WI: 157 QRS: 38 QRSD: 88 T: 92 QT: 460 QTc: 493 Interpretive Statements SINUS RHYTHM MODERATE T-WAVE ABNORMALITY, CONSIDER LATERAL ISCHEMIA [-0.1+ mV T WAVE IN I/aVL/V5/V6] Compared to ECG 07/13/2021 05:56:42 Possible ischemia now present Prolonged QTC still present T-wave abnormality still present Electronically Signed On 07-15-2021 0:11:32 MOVIE SHOT CAMERA OPERATOR by Kevin Trevizo M.D. [email or web address]
[2021-07-14 06:14] LABS: Basophils # 0.1 10^3/uL (0.0-0.1); Basophils % 0.5 %; Eosinophils % 0.2 %; Hematocrit 44.6 % (37.0-47.0); Hemoglobin 14.4 g/dL (11.5-15.3); Lymphocytes # 5.1 10^3/uL (0.8-4.8); Mean Corpuscular HGB Conc 32.3 g/dL (30.0-36.0); Mean Corpuscular Volume 86.6 fl (81-99); Mean Platelet Volume 10.8 fL (7.4-10.4); Monocytes # 0.7 10^3/uL (0.2-0.9); Monocytes % 5.7 %; Neutrophils # 6.76 10^3/uL (1.8-7.7); Neutrophils % 52.8 %; Nucleated Red Blood Cells % 0 %; Platelet Count 455 10^3/cmm (130-400); Red Blood Count 5.15 10^6/uL (4.1-5.3); Red Cell Distribution Width 14.3 % (12.1-15.1); White Blood Count 12.8 10^3/uL (4.0-10.0)
[2021-07-14 06:29] LABS: INR 1.49 (0.8-1.2)
[2021-07-14 06:40] LABS: Alanine Aminotransferase 16 U/L (0-33); Albumin Level 3.8 g/dL (3.5-5.2); Alkaline Phosphatase 223 IU/L (35-105); Aspartate Amino Transferase 31 U/L (0-32); Blood Urea Nitrogen 13 mg/dL (8-23); Calcium 8.8 mg/dL (8.5-10.5); Carbon Dioxide 29 mmol/L (22-29); Chloride 99 mmol/L (98-107); Globulin 3.4 g/dL (1.3-4.6); Glucose 174 mg/dL (65-115); Magnesium 1.9 mg/dL (1.7-2.3); Osmolality Calculated 296 mOsm/kg (285-295); Sodium 141 mmol/L (136-145); Total Bilirubin 0.2 mg/dL (0.15-1.2); Total Protein 7.2 g/dL (6.6-8.7)
[2021-07-14 07:41] LABS: Glucose Point of Care 190 mg/dL (70-110)
[2021-07-14 07:41] LABS: Glucose Point of Care 164 mg/dL (70-110)
[2021-07-14] MEDS: ascorbic acid 500 mg Tablet PO ×2 (08:15→17:16)
[2021-07-14] MEDS: cholecalciferol (vitamin D3) 1,000 unit Tablet 2000 UNIT PO (08:15)
[2021-07-14] MEDS: aspirin 81 mg EC Tablet PO (08:16)
[2021-07-14] MEDS: venlafaxine ER (24HR) 150 mg Capsule PO ×2 (08:16→17:16)
[2021-07-14] MEDS: lisinopril 10 mg Tablet PO (08:16)
[2021-07-14] MEDS: gabapentin 300 mg Capsule PO ×2 (08:16→17:16)
[2021-07-14] MEDS: atorvastatin 40 mg Tablet 20 MG PO (08:16)
[2021-07-14] MEDS: insulin lispro 100 unit/1 mL SUBCUT ×3 (08:16→17:58)
[2021-07-14] MEDS: zinc gluconate 50 mg Tablet PO (08:16)
[2021-07-14] MEDS: clopidogrel 75 mg Tablet PO (08:16)
[2021-07-14] MEDS: docusate sodium 100 mg Capsule PO ×2 (08:16→17:16)
[2021-07-14] MEDS: metoprolol tartrate 25 mg Tablet 12.5 MG PO (08:16)
[2021-07-14] MEDS: budesonide 0.5 mg/2 mL Neb INHALATION ×2 (09:01→20:08)
[2021-07-14] MEDS: ipratropium-albuterol 3 mL Neb INHALATION ×4 (09:01→20:08)
[2021-07-14] MEDS: HYDROcodone-acetaminophen 10-325 mg Tablet 1 TAB PO (11:26)
[2021-07-14 12:27] LABS: Glucose Point of Care 221 mg/dL (70-110)
--- NOTE | 2021-07-14 14:03 | P.PN_ITS ---
Subjective Subjective: Interval history: Tamar reports she is doing okay. No chest discomfort. Medications: Reviewed: Yes Vitals/I&O/Wt Last Vital Signs Temp 97.7 F 07/14/21 11:14 Pulse 89 07/14/21 11:43 Resp 18 07/14/21 11:43 BP 201/81 07/14/21 11:14 Pulse Ox 94 07/14/21 11:43 07/13/21 07/14/21 07/14/21 22:59 06:59 14:59 Intake Total 330 / 330 350 / 680 360 / 360 Balance 330 / 330 350 / 680 360 / 360 Weight last 48 hrs Weight 117.934 kg Weight 117.934 kg Physical Exam Narrative: EXAM NARRATIVE: General exam no distress, conversant, and in no distress Neck is supple Cardiovascular regular rate and rhythm without murmur Lungs coarse bilaterally Abdomen is soft. Positive bowel sounds Extremities no cyanosis clubbing or edema Data : 07/14/21 04:56 07/14/21 04:56 Micro: Microbiology 07/12/21 23:00 Urine Culture - Final Urine Catheterized 07/12/21 23:00 Legionella Urinary Antigen - Final Urine,Clean Catch A&P Assessment and plan (1) Pneumonia due to COVID-19 virus: Currently on 2 L. Continue remdesivir, dexamethasone, baricitinib Venous duplex, CTA negative for thrombus Pulmonary toilet Incentive spirometry Rocephin, azithromycin empirically Overall seems to be doing well. Status: Acute (2) History of pulmonary embolism: On Coumadin. Convert to Lovenox. Check INR tomorrow. Status: Acute (3) COPD (chronic obstructive pulmonary disease): Pulmonary toilet. No current evidence of exacerbation. Status: Acute (4) Type 2 diabetes mellitus: Long-acting insulin, sliding scale insulin Status: Acute Plan Significant elevation of troponin, delta. Consistent with non-ST elevation myocardial infarction. Echocardiogram demonstrates EF around 60%, overall difficult study. Appreciate cardiology consultation. Continue anticoagulation with Lovenox. Continue statin. Low-dose beta-jan was added. Will increase. Continue aspirin. Plavix added. Attestations Medical Necessity Statement*: Needs continued hospitalization for treatment of COVID-19 pneumonia, non-ST elevation myocardial infarction. Coding Level of Care Code Acute Proposal Development Manager for Terri Lackey Diagnoses Pneumonia due to COVID-19 virus U07.1; J12.82 History of pulmonary embolism Z86.711 COPD (chronic obstructive pulmonary disease) J44.9 Type 2 diabetes mellitus E11.9
[2021-07-14] MEDS: remdesivir 100 MG in sodium chloride 0.9% (100 ml) 80 ML IV (17:18)
[2021-07-14 17:26] LABS: Glucose Point of Care 151 mg/dL (70-110)
--- NOTE | 2021-07-14 19:37 | PM.PN ---
Subjective Subjective: Interval history: Patient continues to remain stable with no complaints of chest pain or any chest tightness. She has a baseline shortness of breath with activities. No orthopnea. Had echocardiogram done yesterday which revealed normal LV size and ejection fraction with no significant wall motion abnormalities. Medications: Medication Review Details: Current Medications Acetaminophen (Acetaminophen 325 Mg Tablet) 650 mg PO Q6H PRN PRN Reason: Mild/Mod Pain Or Temp >/= 101 Hydrocodone Bitart/Acetaminophen (Hydrocodone-Acetaminophen 10-325 Mg Tablet) 1 tab PO Q6H PRN PRN Reason: Pain Last Admin: 07/14/21 11:26 Dose: 1 tab Documented by: Albuterol/Ipratropium (Ipratropium-Albuterol 3 Ml Neb) 3 ml INHALATION QID.RESPIRATORY [facility] Last Admin: 07/14/21 16:30 Dose: 3 ml Documented by: Ascorbic Acid (Ascorbic Acid 500 Mg Tablet) 500 mg PO BID [facility] Last Admin: 07/14/21 17:16 Dose: 500 mg Documented by: Aspirin (Aspirin 81 Mg Ec Tablet) 81 mg PO DAILY [facility] Last Admin: 07/14/21 08:16 Dose: 81 mg Documented by: Atorvastatin Calcium (Atorvastatin 40 Mg Tablet) 20 mg PO DAILY [facility] Last Admin: 07/14/21 08:16 Dose: 20 mg Documented by: Baricitinib (Baricitinib 2 Mg Tablet) 4 mg PO Q24H [facility] Stop: 07/26/21 00:31 Last Admin: 07/13/21 23:57 Dose: 4 mg Documented by: Bisacodyl (Bisacodyl 10 Mg Supp) 10 mg [place] ONCE PRN; Protocol PRN Reason: Constipation (see protocol) Budesonide (Budesonide 0.5 Mg/2 Ml Neb) 0.5 mg INHALATION BID.RESPIRATORY [facility] Last Admin: 07/14/21 09:01 Dose: 0.5 mg Documented by: Clonazepam (Clonazepam 1 Mg Tablet) 1 mg PO TID PRN PRN Reason: anxiety Last Admin: 07/13/21 02:20 Dose: 1 mg Documented by: Clopidogrel Bisulfate (Clopidogrel 75 Mg Tablet) 75 mg PO DAILY [facility] Last Admin: 07/14/21 08:16 Dose: 75 mg Documented by: Dexamethasone (Dexamethasone 10 Mg/Ml Inj) 6 mg IVP Q24H [facility] Last Admin: 07/13/21 23:57 Dose: 6 mg Documented by: Dextrose (Dextrose 50% Syringe 50 Ml) 25 ml IVP ONCE PRN; Protocol PRN Reason: hypoglycemia protocol Dextrose (Dextrose 50% Syringe 50 Ml) 50 ml IVP PRN PRN; Protocol PRN Reason: hypoglycemia protocol Docusate Sodium (Docusate Sodium 100 Mg Capsule) 100 mg PO BID [facility] Last Admin: 07/14/21 17:16 Dose: 100 mg Documented by: Enoxaparin Sodium (Enoxaparin 120 Mg/0.8 Ml Syringe) 120 mg SUBCUT Q12H [facility] Last Admin: 07/14/21 15:27 Dose: 120 mg Documented by: Gabapentin (Gabapentin 300 Mg Capsule) 300 mg PO BID [facility] Last Admin: 07/14/21 17:16 Dose: 300 mg Documented by: Glucagon (Glucagon 1 Mg/Ml Inj 1 Ml) 1 mg IM ONCE PRN; Protocol PRN Reason: Adult Acute Hypoglycemia Prot. Remdesivir 100 mg/ Sodium (Chloride) 80 mls @ 100 mls/hr IV Q24H [facility] Stop: 07/16/21 18:47 Last Infusion: 07/14/21 18:06 Dose: Infused Documented by: Ceftriaxone Sodium 1,000 mg/ (Sodium Chloride) 50 mls @ 100 mls/hr IV Q24H [facility]; Protocol Last Infusion: 07/14/21 00:28 Dose: Infused Documented by: Dextrose (D5w) 500 mls @ 100 mls/hr IV ONCE PRN; Protocol PRN Reason: Adult Acute Hypoglycemia Prot Insulin Detemir (Insulin Detemir 100 Units/1 Ml) 30 unit SUBCUT Q12H [facility] Last Admin: 07/14/21 11:27 Dose: 30 unit Documented by: Insulin Human Lispro (Insulin Lispro 100 Unit/1 Ml) 0 unit SUBCUT TIDWM [facility]; Protocol Last Admin: 07/14/21 17:58 Dose: 2 unit Documented by: Lisinopril (Lisinopril 10 Mg Tablet) 10 mg PO DAILY [facility] Last Admin: 07/14/21 08:16 Dose: 10 mg Documented by: Metoprolol Tartrate (Metoprolol Tartrate 25 Mg Tablet) 25 mg PO BID@0900,2100 [facility] Naloxone HCl (Naloxone 0.4 Mg/Ml Sdv) 0.1 mg IVP Q2M PRN PRN Reason: OPIATERV Non-Formulary Medication (Donepezil) 10 mg PO BEDTIME [facility] Ondansetron HCl (Ondansetron 2 Mg/Ml Sdv 2 Ml) 4 mg IVP Q8H PRN PRN Reason: vomiting, or N/V if npo Pantoprazole Sodium (Pantoprazole 40 Mg Sdv) 40 mg IVP Q24H [facility] Last Admin: 07/13/21 23:56 Dose: 40 mg Documented by: Trazodone HCl (Trazodone 150 Mg Tablet) 300 mg PO BEDTIME [facility] Last Admin: 07/13/21 21:01 Dose: 300 mg Documented by: Venlafaxine HCl (Venlafaxine Er (24hr) 150 Mg Capsule) 150 mg PO BID [facility] Last Admin: 07/14/21 17:16 Dose: 150 mg Documented by: Vitamin D (Cholecalciferol (Vitamin D3) 1,000 Unit Tablet) 2,000 unit PO DAILY [facility] Last Admin: 07/14/21 08:15 Dose: 2,000 unit Documented by: Zinc Gluconate (Zinc Gluconate 50 Mg Tablet) 50 mg PO DAILY [facility] Last Admin: 07/14/21 08:16 Dose: 50 mg Documented by: Vitals/I&O/Wt Last Vital Signs Temp 98.5 F 07/14/21 15:54 Pulse 90 07/14/21 16:30 Resp 18 07/14/21 17:03 BP 186/77 07/14/21 15:54 Pulse Ox 2 L 07/14/21 17:03 07/14/21 07/14/21 07/14/21 06:59 14:59 22:59 Intake Total 350 / 680 560 / 560 80 / 640 Balance 350 / 680 560 / 560 80 / 640 Weight last 48 hrs Weight 260 lb Physical Exam Narrative: EXAM NARRATIVE: GENERAL: The patient is somewhat drowsy. She still has an audible wheeze. HEENT: Minimal pallor. No, icterus or lymphadenopathy.Oral cavity: There are no mucous membrane lesions. NECK: Trachea appears to be central. No masses noted. No JVD or thyromegaly appreciated. RESPIRATORY: Breath sounds are heard bilaterally with scattered coarse crackles. Diminished intensity of breath on the basis. BREASTS: Deferred. HEART: The heart sounds are normal. No S3 or S4. Short systolic murmur in the left sternal border. No diastolic murmurs. ABDOMEN: Abdomen is obese and nontender. : Deferred. RECTAL: Deferred. LYMPHATIC: No lymphadenopathy noted in the neck or groin. EXTREMITIES: 1+ edema of the both lower lower extremities. MUSCULOSKELETAL: No acute joint deformities or swelling SKIN: There are no significant rashes or ecchymosis NEUROPSYCHIATRIC: Resting tremor, especially of the right upper extremity. Data : 07/14/21 04:56 07/14/21 04:56 Other Labs: Echocardiogram from yesterday 1.? Possibly normal LV size and ejection fraction of 58%. ?2.? No gross wall motion normalities. ?3.? The aortic valve appears to be thickened. ?4.? Mild mitral annular calcification. ?5.? The right ventricle appears to be mildly dilated ?Technically very difficult study because of the poor ultrasonic ?window. Micro: Microbiology 07/12/21 23:00 Urine Culture - Final Urine Catheterized A&P Assessment and plan (1) Elevated troponin: The elevated troponin T, could be related to type IV myocardial infarction. In view of the patient multiple risk factors and the abnormal EKG, possibility of her having significant coronary artery disease is very high. Hemodynamically she seems to be stable. She is denies any chest pain. She may be continued on the Lovenox, Plavix, aspirin, beta-jan and statin. Status: Acute (2) Type 2 diabetes mellitus: Aggressive management as per the primary Status: Acute (3) Benign essential hypertension with target blood pressure below 140/90: I may increase the dose of the lisinopril to 20 mg p.o. daily. Also may start her on isosorbide mononitrate 30 mg p.o. daily. Status: Acute (4) Pneumonia due to COVID-19 virus: Management as per the primary service Status: Acute (5) History of pulmonary embolism: IV anticoagulation would be appropriate at this point Status: Acute (6) Hypoxemia: Oxygenation status seems to be improving. Status: Acute Plan Her other problems are Essential benign hypertension, currently of stage II Type 2 diabetes Dyslipidemia Gait disorder/ataxia Resting tremor COPD with intermittent exacerbations MARY FUENTES Attestations Medical Necessity Statement*: Patient requires continued hospital stay for close monitoring and further management Coding Level of Care Code Acute Cardiovascular Specialist for g Fwd History Detailed Exam Detailed Medical Decision Making Moderate Complexity Diagnoses Elevated troponin R77.8 Type 2 diabetes mellitus E11.9 Pneumonia due to COVID-19 virus U07.1; J12.82 History of pulmonary embolism Z86.711 Hypoxemia R09.02 Benign essential hypertension with target blood pressure below 140/90 I10
[2021-07-14 21:31] LABS: Glucose Point of Care 218 mg/dL (70-110)
[2021-07-14] MEDS: metoprolol tartrate 25 mg Tablet PO (22:23)
[2021-07-14] MEDS: trazodone 150 mg Tablet 300 MG PO (22:24)
[2021-07-14] MEDS: pantoprazole 40 mg SDV IVP (22:25)
[2021-07-14] MEDS: cefTRIAXone 1,000 MG in sodium chloride 0.9% (plus) 50 ML 100 MG IV (22:25)
[2021-07-14] MEDS: dexamethasone 10 mg/mL INJ 6 MG IVP (22:28)
[2021-07-15] VITALS (13 sets, daily range): BP systolic 146–186; BP diastolic 71–105; PULSE 0–78; RESP 16–26; TEMP 36.7–37.1; O2SAT 91–96
[2021-07-15] MEDS: enoxaparin 120 mg/0.8 mL Syringe SUBCUT (02:04)
--- NOTE | 2021-07-15 06:00 | ECG_ITS ---
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 Measurements Intervals Harvey Rate: 62 P: 27 MI: 150 QRS: 9 QRSD: 82 T: 77 QT: 460 QTc: 470 Interpretive Statements SINUS RHYTHM NONSPECIFIC T-WAVE ABNORMALITY Compared to ECG 07/14/2021 06:07:12 Possible ischemia no longer present T-wave abnormality still present Electronically Signed On 07-15-2021 22:29:21 PAYLOADER OPERATOR by Wendy Ramirez M.D. [id number]
[2021-07-15 06:37] LABS: Glucose Point of Care 268 mg/dL (70-110)
[2021-07-15] MEDS: cholecalciferol (vitamin D3) 1,000 unit Tablet 2000 UNIT PO (08:44)
[2021-07-15] MEDS: venlafaxine ER (24HR) 150 mg Capsule PO ×2 (08:44→17:12)
[2021-07-15] MEDS: aspirin 81 mg EC Tablet PO (08:44)
[2021-07-15] MEDS: lisinopril 20 mg Tablet PO (08:44)
[2021-07-15] MEDS: isosorbide mononitrate ER 30 mg Tablet PO (08:44)
[2021-07-15] MEDS: zinc gluconate 50 mg Tablet PO (08:44)
[2021-07-15] MEDS: ascorbic acid 500 mg Tablet PO (08:44)
[2021-07-15] MEDS: metoprolol tartrate 25 mg Tablet PO (08:45)
[2021-07-15] MEDS: atorvastatin 40 mg Tablet 20 MG PO (08:45)
[2021-07-15] MEDS: gabapentin 300 mg Capsule PO ×2 (08:45→17:12)
[2021-07-15] MEDS: docusate sodium 100 mg Capsule PO ×2 (08:45→17:12)
[2021-07-15] MEDS: clopidogrel 75 mg Tablet PO (08:45)
[2021-07-15] MEDS: insulin lispro 100 unit/1 mL SUBCUT ×2 (08:47→13:11)
[2021-07-15] MEDS: HYDROcodone-acetaminophen 10-325 mg Tablet 1 TAB PO ×2 (09:00→17:25)
[2021-07-15] MEDS: FUROsemide 10 mg/mL SDV 4mL 40 MG IVP (09:31)
[2021-07-15] MEDS: budesonide 0.5 mg/2 mL Neb INHALATION (09:32)
[2021-07-15] MEDS: ipratropium-albuterol 3 mL Neb INHALATION ×3 (09:32→17:11)
[2021-07-15] MEDS: pantoprazole 40 mg SDV IVP ×2 (09:32→21:01)
[2021-07-15 09:56] LABS: Basophils % 0.2 %; Hematocrit 42.3 % (37.0-47.0); Lymphocytes # 6.9 10^3/uL (0.8-4.8); Mean Corpuscular HGB Conc 33.1 g/dL (30.0-36.0); Mean Corpuscular Hemoglobin 28.5 pg (28.0-34.0); Mean Corpuscular Volume 86.2 fl (81-99); Mean Platelet Volume 10.5 fL (7.4-10.4); Monocytes # 0.8 10^3/uL (0.2-0.9); Monocytes % 6.4 %; Neutrophils # 4.97 10^3/uL (1.8-7.7); Neutrophils % 38.9 %; Nucleated Red Blood Cells % 0 %; Platelet Count 455 10^3/cmm (130-400); Red Blood Count 4.91 10^6/uL (4.1-5.3); Red Cell Distribution Width 14.3 % (12.1-15.1); White Blood Count 12.8 10^3/uL (4.0-10.0)
[2021-07-15 10:36] LABS: Alanine Aminotransferase 13 U/L (0-33); Albumin Level 3.6 g/dL (3.5-5.2); Alkaline Phosphatase 191 IU/L (35-105); Anion Gap 18.9 (5-19); Aspartate Amino Transferase 25 U/L (0-32); Blood Urea Nitrogen 10 mg/dL (8-23); Calcium 9.2 mg/dL (8.5-10.5); Carbon Dioxide 24 mmol/L (22-29); Chloride 100 mmol/L (98-107); Globulin 3.5 g/dL (1.3-4.6); Glucose 216 mg/dL (65-115); Magnesium 1.8 mg/dL (1.7-2.3); Osmolality Calculated 294 mOsm/kg (285-295); Potassium 3.9 mmol/L (3.5-5.1); Sodium 139 mmol/L (136-145); Total Bilirubin 0.2 mg/dL (0.15-1.2); Total Protein 7.1 g/dL (6.6-8.7)
--- NOTE | 2021-07-15 12:35 | PM.PN ---
Subjective Subjective: Interval history: Tamar reports she has been having some black in her stools. Nurses concern for bleeding. I discussed with patient she will need to show us the next stool. Full dose anticoagulation discontinued. She had refused her labs, and we are awaiting these. Medications: Reviewed: Yes Vitals/I&O/Wt Last Vital Signs Temp 98.0 F 07/15/21 08:00 Pulse 76 07/15/21 12:31 Resp 16 07/15/21 12:31 BP 186/105 07/15/21 08:00 Pulse Ox 93 07/15/21 12:31 07/14/21 07/15/21 07/15/21 22:59 06:59 14:59 Intake Total 130 / 690 Balance 130 / 690 Weight last 48 hrs Weight 117.934 kg Physical Exam Narrative: EXAM NARRATIVE: General exam no distress, conversant, and in no distress Neck is supple Cardiovascular regular rate and rhythm without murmur Lungs a few expiratory wheezes. Abdomen is soft. Positive bowel sounds Extremities no cyanosis clubbing or edema Data : 07/15/21 09:25 07/15/21 09:25 Micro: Microbiology 07/12/21 23:00 Urine Culture - Final Urine Catheterized A&P Assessment and plan (1) Pneumonia due to COVID-19 virus: Currently on room air Continue remdesivir. She is improved significantly and does not need baricitinib as she has gone to room air. Discontinue dexamethasone as this could serve as risk for GI bleeding. Venous duplex, CTA negative for thrombus Pulmonary toilet Incentive spirometry Rocephin empirically. Azithromycin discontinued secondary to concern on 1 EKG of QT prolongation Overall seems to be doing well. Status: Acute (2) History of pulmonary embolism: On Coumadin. Convert to Lovenox. Anticoagulation held secondary to concern of heme positive stool. Not a good candidate for triple therapy. Consider lower dose Eliquis at 2.5 mg twice daily on discharge if no significant bleeding. Status: Acute (3) COPD (chronic obstructive pulmonary disease): Pulmonary toilet. No current evidence of exacerbation. Status: Acute (4) Type 2 diabetes mellitus: Long-acting insulin, sliding scale insulin Status: Acute Plan Significant elevation of troponin, delta. Consistent with non-ST elevation myocardial infarction. Echocardiogram demonstrates EF around 60%, overall difficult study. Appreciate cardiology consultation. Does not appear to be a good candidate for triple therapy as concern for GI bleeding. Will hold any further anticoagulation until this can be delineated. Plavix and aspirin were already given today. Hemoglobin appears stable. Proton pump inhibitor twice daily. Clear liquids for now secondary to concern of GI bleed. Continue statin. Continue beta-jan . Will review clinical course prior to administering Plavix or aspirin tomorrow. Attestations Medical Necessity Statement*: Needs continued hospital stay for evaluation of potential GI bleeding in the face of multiple antiplatelet and anticoagulants Coding Level of Care Code Acute Order Entry Specialist for [facility] Diagnoses Pneumonia due to COVID-19 virus U07.1; J12.82 History of pulmonary embolism Z86.711 COPD (chronic obstructive pulmonary disease) J44.9 Type 2 diabetes mellitus E11.9
[2021-07-15 12:44] LABS: Glucose Point of Care 232 mg/dL (70-110)
[2021-07-15] MEDS: remdesivir 100 MG in sodium chloride 0.9% (100 ml) 80 ML IV (17:12)
[2021-07-15 18:08] LABS: Glucose Point of Care 145 mg/dL (70-110)
[2021-07-15 18:28] LABS: Hematocrit 40.3 % (37.0-47.0); Hemoglobin 13.1 g/dL (11.5-15.3)
--- NOTE | 2021-07-15 19:45 | PM.PN ---
Subjective Subjective: Interval history: Patient developed an abdominal wall hematoma. For this reason Plavix and the Lovenox is held. Patient has no chest pain or chest tightness. No unusual shortness of breath. No fever or chills. Medications: Medication Review Details: Current Medications Acetaminophen (Acetaminophen 325 Mg Tablet) 650 mg PO Q6H PRN PRN Reason: Mild/Mod Pain Or Temp >/= 101 Hydrocodone Bitart/Acetaminophen (Hydrocodone-Acetaminophen 10-325 Mg Tablet) 1 tab PO Q6H PRN PRN Reason: Pain Last Admin: 07/15/21 17:25 Dose: 1 tab Documented by: Albuterol/Ipratropium (Ipratropium-Albuterol 3 Ml Neb) 3 ml INHALATION QID.RESPIRATORY [facility] Last Admin: 07/15/21 17:11 Dose: 3 ml Documented by: Atorvastatin Calcium (Atorvastatin 40 Mg Tablet) 20 mg PO DAILY [facility] Last Admin: 07/15/21 08:45 Dose: 20 mg Documented by: Bisacodyl (Bisacodyl 10 Mg Supp) 10 mg [place] ONCE PRN; Protocol PRN Reason: Constipation (see protocol) Budesonide (Budesonide 0.5 Mg/2 Ml Neb) 0.5 mg INHALATION BID.RESPIRATORY [facility] Last Admin: 07/15/21 09:32 Dose: 0.5 mg Documented by: Clonazepam (Clonazepam 1 Mg Tablet) 1 mg PO TID PRN PRN Reason: anxiety Last Admin: 07/13/21 02:20 Dose: 1 mg Documented by: Dextrose (Dextrose 50% Syringe 50 Ml) 25 ml IVP ONCE PRN; Protocol PRN Reason: hypoglycemia protocol Dextrose (Dextrose 50% Syringe 50 Ml) 50 ml IVP PRN PRN; Protocol PRN Reason: hypoglycemia protocol Docusate Sodium (Docusate Sodium 100 Mg Capsule) 100 mg PO BID [facility] Last Admin: 07/15/21 17:12 Dose: 100 mg Documented by: Gabapentin (Gabapentin 300 Mg Capsule) 300 mg PO BID [facility] Last Admin: 07/15/21 17:12 Dose: 300 mg Documented by: Glucagon (Glucagon 1 Mg/Ml Inj 1 Ml) 1 mg IM ONCE PRN; Protocol PRN Reason: Adult Acute Hypoglycemia Prot. Remdesivir 100 mg/ Sodium (Chloride) 80 mls @ 100 mls/hr IV Q24H [facility] Stop: 07/16/21 18:47 Last Admin: 07/15/21 17:12 Dose: 100 mls/hr Documented by: Ceftriaxone Sodium 1,000 mg/ (Sodium Chloride) 50 mls @ 100 mls/hr IV Q24H [facility]; Protocol Last Infusion: 07/14/21 22:55 Dose: Infused Documented by: Dextrose (D5w) 500 mls @ 100 mls/hr IV ONCE PRN; Protocol PRN Reason: Adult Acute Hypoglycemia Prot Insulin Detemir (Insulin Detemir 100 Units/1 Ml) 30 unit SUBCUT Q12H [facility] Last Admin: 07/15/21 13:12 Dose: 30 unit Documented by: Insulin Human Lispro (Insulin Lispro 100 Unit/1 Ml) 0 unit SUBCUT TIDWM [facility]; Protocol Last Admin: 07/15/21 18:07 Dose: Not Given Documented by: Isosorbide Mononitrate (Isosorbide Mononitrate Er 30 Mg Tablet) 30 mg PO DAILY [facility] Last Admin: 07/15/21 08:44 Dose: 30 mg Documented by: Lisinopril (Lisinopril 20 Mg Tablet) 20 mg PO DAILY [facility] Last Admin: 07/15/21 08:44 Dose: 20 mg Documented by: Metoprolol Tartrate (Metoprolol Tartrate 25 Mg Tablet) 25 mg PO BID@0900,2100 [facility] Last Admin: 07/15/21 08:45 Dose: 25 mg Documented by: Naloxone HCl (Naloxone 0.4 Mg/Ml Sdv) 0.1 mg IVP Q2M PRN PRN Reason: OPIATERV Non-Formulary Medication (Donepezil) 10 mg PO BEDTIME [facility] Ondansetron HCl (Ondansetron 2 Mg/Ml Sdv 2 Ml) 4 mg IVP Q8H PRN PRN Reason: vomiting, or N/V if npo Pantoprazole Sodium (Pantoprazole 40 Mg Sdv) 40 mg IVP Q12H [facility] Last Admin: 07/15/21 09:32 Dose: 40 mg Documented by: Trazodone HCl (Trazodone 150 Mg Tablet) 300 mg PO BEDTIME [facility] Last Admin: 07/14/21 22:24 Dose: 300 mg Documented by: Venlafaxine HCl (Venlafaxine Er (24hr) 150 Mg Capsule) 150 mg PO BID [facility] Last Admin: 07/15/21 17:12 Dose: 150 mg Documented by: Vitamin D (Cholecalciferol (Vitamin D3) 1,000 Unit Tablet) 2,000 unit PO DAILY [facility] Last Admin: 07/15/21 08:44 Dose: 2,000 unit Documented by: Vitals/I&O/Wt Last Vital Signs Temp 98.2 F 07/15/21 16:00 Pulse 78 07/15/21 17:20 Resp 16 07/15/21 17:00 BP 166/86 07/15/21 16:00 Pulse Ox 92 07/15/21 17:00 07/15/21 07/15/21 07/15/21 06:59 14:59 22:59 Intake Total 200 / 200 Balance 200 / 200 Physical Exam Narrative: EXAM NARRATIVE: GENERAL: The patient is somewhat drowsy. She still has an audible wheeze. HEENT: Minimal pallor. No, icterus or lymphadenopathy.Oral cavity: There are no mucous membrane lesions. NECK: Trachea appears to be central. No masses noted. No JVD or thyromegaly appreciated. RESPIRATORY: Breath sounds are heard bilaterally with scattered coarse crackles. Diminished intensity of breath on the basis. BREASTS: Deferred. HEART: The heart sounds are normal. No S3 or S4. Short systolic murmur in the left sternal border. No diastolic murmurs. ABDOMEN: There is an 8 x 10 size hematoma in the abdominal wall. : Deferred. RECTAL: Deferred. LYMPHATIC: No lymphadenopathy noted in the neck or groin. EXTREMITIES: 1+ edema of the both lower lower extremities. MUSCULOSKELETAL: No acute joint deformities or swelling SKIN: There are no significant rashes or ecchymosis NEUROPSYCHIATRIC: Resting tremor, especially of the right upper extremity. Data : 07/15/21 18:10 07/15/21 09:25 Other Labs: Laboratory Last Values WBC 12.8 10^3/uL (4.0-10.0) H 07/15/21 09:25 RBC 4.91 10^6/uL (4.1-5.3) 07/15/21 09:25 Hgb 13.1 g/dL (11.5-15.3) 07/15/21 18:10 Hct 40.3 % (37.0-47.0) 07/15/21 18:10 MCV 86.2 fl (81-99) 07/15/21 09:25 MCH 28.5 pg (28.0-34.0) 07/15/21 09:25 MCHC 33.1 g/dL (30.0-36.0) 07/15/21 09:25 RDW 14.3 % (12.1-15.1) 07/15/21 09:25 Plt Count 455 10^3/cmm (130-400) H 07/15/21 09:25 MPV 10.5 fL (7.4-10.4) H 07/15/21 09:25 Neut % (Auto) 38.9 % 07/15/21 09:25 Lymph % (Auto) 54.0 % 07/15/21 09:25 [place] % (Auto) 6.4 % 07/15/21 09:25 Eos % (Auto) 0.0 % 07/15/21 09:25 Baso % (Auto) 0.2 % 07/15/21 09:25 Neut # (Auto) 4.97 10^3/uL (1.8-7.7) 07/15/21 09:25 Lymph # (Auto) 6.9 10^3/uL (0.8-4.8) H 07/15/21 09:25 [place] # (Auto) 0.8 10^3/uL (0.2-0.9) 07/15/21 09:25 Eos # (Auto) 0.0 10^3/uL (0.0-0.8) 07/15/21 09:25 Baso # (Auto) 0.0 10^3/uL (0.0-0.1) 07/15/21 09:25 Nucleated RBC % (auto) 0 % 07/15/21 09:25 Nucleated RBCs # 0.0 /100WBC 07/15/21 09:25 PT 18.40 SECONDS (12.1-14.9) H 07/14/21 04:56 INR 1.49 (0.8-1.2) H 07/14/21 04:56 D-Dimer 0.41 ug/mIFEU (0-0.59) 07/13/21 08:00 Specimen Type Arterial 07/12/21 19:50 Sample Site Radial, left 07/12/21 19:50 ABG pH 7.46 (7.35-7.45) H 07/12/21 19:50 ABG pCO2 39.9 mmHg (35-45) 07/12/21 19:50 ABG pO2 60.2 mmHg (80.0-100.0) L 07/12/21 19:50 ABG HCO3 28.6 mmol/L (22-26) H 07/12/21 19:50 ABG Base Excess 4.5 mmol/L (-2.0-2.0) H 07/12/21 19:50 Joey Test N/a 07/12/21 19:50 Hematocrit 42.0 % (37-47) 07/12/21 19:50 O2 Delivery Device Nc 07/12/21 19:50 O2 Liters/Min 3.0 % 07/12/21 19:50 Magnaflux Operator ID [email or web address] 07/12/21 19:50 Sodium 139 mmol/L (136-145) 07/15/21 09:25 Potassium 3.9 mmol/L (3.5-5.1) 07/15/21 09:25 Chloride 100 mmol/L (98-107) 07/15/21 09:25 Carbon Dioxide 24 mmol/L (22-29) 07/15/21 09:25 Anion Gap 18.9 (5-19) 07/15/21 09:25 BUN 10 mg/dL (8-23) 07/15/21 09:25 Creatinine 0.5 mg/dL (0.5-0.9) 07/15/21 09:25 GFR Calculation Not Reportable 07/15/21 09:25 Glucose 216 mg/dL (65-115) H 07/15/21 09:25 POC Glucose 145 mg/dL (70-110) H 07/15/21 17:07 Estimat Average Glucose 206 07/12/21 18:55 Hemoglobin A1c 8.8 % (4.0-6.0) H 07/12/21 18:55 Calculated Osmolality 294 mOsm/kg (285-295) 07/15/21 09:25 Calcium 9.2 mg/dL (8.5-10.5) 07/15/21 09:25 Phosphorus 2.3 mg/dL (2.5-4.5) L 07/13/21 07:15 Magnesium 1.8 mg/dL (1.7-2.3) 07/15/21 09:25 Total Bilirubin 0.2 mg/dL (0.15-1.2) 07/15/21 09:25 AST 25 U/L (0-32) 07/15/21 09:25 ALT 13 U/L (0-33) 07/15/21 09:25 Alkaline Phosphatase 191 IU/L (35-105) H 07/15/21 09:25 Creatine Kinase 71 U/L (26-192) 07/13/21 07:15 Troponin T Gen 5 ng/L 109 ng/L (0-10) H* 07/13/21 07:15 Troponin T Baseline 20 ng/L (0-10) H 07/12/21 Unknown Troponin T 120 Minute 124.5 ng/L (0-10) H 07/12/21 20:50 Delta Troponin T 104.5 ABS# (0-10) H* 07/12/21 20:50 Troponin T Hi Sens 6Hr 149.4 ng/L (0-10) H 07/13/21 00:52 Troponin T Hi Sens 6Hr Delta 129.4 ng/L (0-12) H* 07/13/21 00:52 C-Reactive Protein 58.0 mg/L (0.0-4.9) H 07/13/21 07:15 NT-Pro-B Natriuret Pep 5931 pg/mL (0-450) H 07/13/21 07:15 Total Protein 7.1 g/dL (6.6-8.7) 07/15/21 09:25 Albumin 3.6 g/dL (3.5-5.2) 07/15/21 09:25 Globulin 3.5 g/dL (1.3-4.6) 07/15/21 09:25 Procalcitonin 0.24 ng/mL (0-0.5) 07/13/21 07:15 TSH 2.16 uIU/mL (0.27-4.20) 07/12/21 Unknown Urine Color Yellow (Yellow) 07/12/21 23:00 Urine Appearance Clear (CLEAR) 07/12/21 23:00 Urine pH 7 (5-7) 07/12/21 23:00 Ur Specific [place] 1.010 (1.005-1.030) 07/12/21 23:00 Urine Protein 1+ (Negative) H 07/12/21 23:00 Urine Glucose (UA) 4+ (Normal) H 07/12/21 23:00 Urine Ketones 2+ (Negative) H 07/12/21 23:00 Urine Blood Neg (Negative) 07/12/21 23:00 Urine Nitrate Negative (Negative) 07/12/21 23:00 Urine Bilirubin Neg (Negative) 07/12/21 23:00 Urine Urobilinogen Norm mg/dL (Negative) 07/12/21 23:00 Ur Leukocyte Esterase Negative (Negative) 07/12/21 23:00 Urine RBC 0-4 /hpf (0-2) H 07/12/21 23:00 Urine WBC 0-4 /hpf (0-5) H 07/12/21 23:00 Ur Squamous Epith Cells 5-10 /hpf (0-5) H 07/12/21 23:00 Amorphous Sediment Not Reportable 07/12/21 23:00 Urine Bacteria Trace /hpf (NONE) 07/12/21 23:00 Urine Yeast 1+ /hpf H 07/12/21 23:00 Influenza Type A Ag Negative (Negative) 07/12/21 20:55 Influenza Type B Ag Negative (Negative) 07/12/21 20:55 SARS-CoV-2 Ag (Rapid) Positive (Negative) H 07/12/21 18:55 A&P Assessment and plan (1) Elevated troponin: Most likely the patient may have underlying coronary artery disease. She requires further cardiac work-up. However she seems to be stable. In view of her hematoma, it would be appropriate to hold off on the Lovenox and Plavix for the time being. Once the hematoma is stable, may consider restarting Plavix. Status: Acute (2) Type 2 diabetes mellitus: Management as per the primary. Status: Acute (3) Benign essential hypertension with target blood pressure below 140/90: I would increase the dose of metoprolol to 50 mg p.o. twice daily, for better control of the blood pressure. Status: Acute (4) Pneumonia due to COVID-19 virus: Management as per the primary service Status: Acute (5) History of pulmonary embolism: Discussed with Dr. Pete. Consider starting her on maintenance dose of Eliquis, if she has no evidence of any active bleed Status: Acute Plan Her other problems are Abdominal wall hematoma Type 2 diabetes Dyslipidemia Gait disorder/ataxia Resting tremor COPD with intermittent exacerbations MGUS FUENTES Consider further cardiac work-up as an outpatient. Optimize the antihypertensive medications. Dr. Montgomery will be following up on this patient, in my absence Attestations Medical Necessity Statement*: Patient requires continued hospital stay for close monitoring . Coding Level of Care Code Acute [employer]ling [employer] Engraver for Chg Fwd History Detailed Exam Detailed Medical Decision Making Moderate Complexity Diagnoses Elevated troponin R77.8 Type 2 diabetes mellitus E11.9 Benign essential hypertension with target blood pressure below 140/90 I10 Pneumonia due to COVID-19 virus U07.1; J12.82 History of pulmonary embolism Z86.711
[2021-07-15] MEDS: trazodone 150 mg Tablet 300 MG PO (21:00)
[2021-07-15] MEDS: metoprolol tartrate 50 mg Tablet PO (21:01)
[2021-07-15 21:16] LABS: Glucose Point of Care 157 mg/dL (70-110)
[2021-07-15] MEDS: cefTRIAXone 1,000 MG in sodium chloride 0.9% (plus) 50 ML 100 MG IV (23:53)
[2021-07-16] VITALS (8 sets, daily range): BP systolic 124–178; BP diastolic 56–81; PULSE 0–63; RESP 16–18; TEMP 36.6; O2SAT 90–93
[2021-07-16 06:45] LABS: Basophils # 0.1 10^3/uL (0.0-0.1); Basophils % 0.4 %; Eosinophils # 0.1 10^3/uL (0.0-0.8); Eosinophils % 0.5 %; Hematocrit 38.9 % (37.0-47.0); Hemoglobin 12.6 g/dL (11.5-15.3); Lymphocytes # 8.6 10^3/uL (0.8-4.8); Lymphocytes % 58.8 %; Mean Corpuscular HGB Conc 32.4 g/dL (30.0-36.0); Mean Corpuscular Hemoglobin 28.3 pg (28.0-34.0); Mean Corpuscular Volume 87.4 fl (81-99); Mean Platelet Volume 10.5 fL (7.4-10.4); Monocytes % 6.8 %; Neutrophils # 4.82 10^3/uL (1.8-7.7); Nucleated Red Blood Cells % 0 %; Platelet Count 406 10^3/cmm (130-400); Red Blood Count 4.45 10^6/uL (4.1-5.3); Red Cell Distribution Width 14.3 % (12.1-15.1); White Blood Count 14.6 10^3/uL (4.0-10.0)
[2021-07-16 06:49] LABS: Glucose Point of Care 150 mg/dL (70-110)
[2021-07-16 07:09] LABS: Alanine Aminotransferase 14 U/L (0-33); Alkaline Phosphatase 155 IU/L (35-105); Blood Urea Nitrogen 16 mg/dL (8-23); Calcium 8.7 mg/dL (8.5-10.5); Carbon Dioxide 24 mmol/L (22-29); Chloride 102 mmol/L (98-107); Globulin 3.2 g/dL (1.3-4.6); Glucose 143 mg/dL (65-115); Osmolality Calculated 298 mOsm/kg (285-295); Sodium 142 mmol/L (136-145); Total Bilirubin 0.2 mg/dL (0.15-1.2); Total Protein 6.2 g/dL (6.6-8.7)
[2021-07-16 07:12] LABS: Anion Gap 19.7 (5-19); Aspartate Amino Transferase 26 U/L (0-32); Potassium 3.7 mmol/L (3.5-5.1)
[2021-07-16] MEDS: ipratropium-albuterol 3 mL Neb INHALATION (07:30)
[2021-07-16] MEDS: budesonide 0.5 mg/2 mL Neb INHALATION (07:30)
--- NOTE | 2021-07-16 08:40 | PC.SOCIAL ---
IMM Update Pg. 2 of IMM Updated and reviewed with patient's over the phone. Verbalized understanding.
--- NOTE | 2021-07-16 09:07 | PM.DCS ---
Discharge Providers Date of Admission: 07/13/21 00:27 Date of Discharge: July 16, 2021 Attending Provider at Admission: Manpreet Latif MD Attending Provider at Discharge: Blair Michael MD Primary Care Provider: Gurinder Allen Diagnoses at Discharge Discharge Diagnosis (1) Elevated troponin: Status: Acute (2) Type 2 diabetes mellitus: Status: Acute (3) Benign essential hypertension with target blood pressure below 140/90: Status: Acute (4) Pneumonia due to COVID-19 virus: Status: Acute (5) History of pulmonary embolism: Status: Acute Permanent problem details: had s/s of covid 19, but never tested. Assumed possibly related Reason for Visit Reason for Visit: SOB Hospital Course Hospital Course Tamar presented to the hospital on July 12. She was complaining of shortness of breath and was requiring 4 L of oxygen at home. She was found to be Covid positive. Other testing delineated a significant delta troponin and concern for non-ST elevation myocardial infarction was present. Remdesivir, dexamethasone, baricitinib were initiated. For non-ST elevation myocardial infarction aspirin was continued, statin, and addition of anticoagulation with Lovenox. Her Coumadin she was on for previous history of pulmonary embolism was discontinued at that time. Echocardiogram was performed which demonstrated an EF around 60%, but poor ultrasonic window. Cardiology was consulted, and considering Covid positive, current symptoms it was thought to treat her medically initially with close follow-up. This was discussed in detail with the family who agreed with plan. Other studies done in the hospital included a head CT which showed no acute change, venous duplex which was negative for DVT, a CTA which demonstrated some atelectasis, bronchial wall thickening. During her hospital course she weaned off oxygen. Her baricitinib was discontinued. Medications were adjusted and added for hypertension including addition of beta-jan and Imdur for treatment of non-ST elevation myocardial infarction. During her hospital stay she did develop a hematoma with Lovenox injections so anticoagulation was held briefly. It was thought best to discharge her only on Plavix, and low-dose Eliquis for prevention of DVT and PE. Patient herself had thought she may have had a black stool during her hospital stay, but this could not be confirmed and she did not save the stool. Certainly she had not had any bowel movements concerning for bleeding over 24 hours prior to discharge. I discussed with her family her plan, as she has some significant memory deficits. Physical Exam Narrative: EXAM NARRATIVE: General exam no distress Neck is supple Cardiovascular regular rate and rhythm Lungs clear Abdomen is soft, positive bowel sounds, right sided hematoma, superficial Extremities no cyanosis clubbing or edema Discharge Data Studies Completed and Pending Completed Studies During Hospitalization Category Date Time Status CT angio chest PE protcl 17909 Urgent Cat Scan 07/13/21 08:[address] head wo con* [id number] Urgent Cat Scan 07/12/21 18:19 Completed XR chest 1V portable 15800 Urgent Exams 07/12/21 18:19 [place] [id number] Urgent Ultrasound 07/13/21 08:00 Completed CV. echo complete* [id number] Routine Ultrasound 07/13/21 08:00 Completed Pending at discharge Category Date Time Status Arterial Blood Gas W/O Coox AM LABS Lab 07/13/21 01:33 Stop Req Fecal Occult Blood [Immunochemical Fecal OCB] Routine Lab 07/15/21 12:37 Uncollected Radiology Impressions Chest X-Ray 07/12/21 18:19 IMPRESSION: Peripheral right basilar opacity suspicious for pneumonia. Head CT 07/12/21 18:19 IMPRESSION: 1. No acute intracranial abnormality. 2. Mild diffuse cerebral atrophy and sequela of chronic small vessel ischemic disease. Chest CTA 07/13/21 08:00 IMPRESSION: 1. Negative for pulmonary embolism. 2. Diffuse bronchial wall thickening consistent with bronchitis. 3. Curvilinear areas of subsegmental atelectasis or scarring in the right upper lobe are new from most recent comparison. 4. Nonspecific enlarged right hilar and mediastinal lymph nodes. 5. Chronic severe compression deformity of T8. Laboratory Results WBC 14.6 10^3/uL (4.0-10.0) H 07/16/21 05:30 RBC 4.45 10^6/uL (4.1-5.3) 07/16/21 05:30 Hgb 12.6 g/dL (11.5-15.3) 07/16/21 05:30 Hct 38.9 % (37.0-47.0) 07/16/21 05:30 MCV 87.4 fl (81-99) 07/16/21 05:30 MCH 28.3 pg (28.0-34.0) 07/16/21 05:30 MCHC 32.4 g/dL (30.0-36.0) 07/16/21 05:30 RDW 14.3 % (12.1-15.1) 07/16/21 05:30 Plt Count 406 10^3/cmm (130-400) H 07/16/21 05:30 MPV 10.5 fL (7.4-10.4) H 07/16/21 05:30 Neut % (Auto) 33.0 % 07/16/21 05:30 Lymph % (Auto) 58.8 % 07/16/21 05:30 Sunflower % (Auto) 6.8 % 07/16/21 05:30 Eos % (Auto) 0.5 % 07/16/21 05:30 Baso % (Auto) 0.4 % 07/16/21 05:30 Neut # (Auto) 4.82 10^3/uL (1.8-7.7) 07/16/21 05:30 Lymph # (Auto) 8.6 10^3/uL (0.8-4.8) H 07/16/21 05:30 Sunflower # (Auto) 1.0 10^3/uL (0.2-0.9) H 07/16/21 05:30 Eos # (Auto) 0.1 10^3/uL (0.0-0.8) 07/16/21 05:30 Baso # (Auto) 0.1 10^3/uL (0.0-0.1) 07/16/21 05:30 Nucleated RBC % (auto) 0 % 07/16/21 05:30 Nucleated RBCs # 0.0 /100WBC 07/16/21 05:30 PT 18.40 SECONDS (12.1-14.9) H 07/14/21 04:56 INR 1.49 (0.8-1.2) H 07/14/21 04:56 D-Dimer 0.41 ug/mIFEU (0-0.59) 07/13/21 08:00 Specimen Type Arterial 07/12/21 19:50 Sample Site Radial, left 07/12/21 19:50 ABG pH 7.46 (7.35-7.45) H 07/12/21 19:50 ABG pCO2 39.9 mmHg (35-45) 07/12/21 19:50 ABG pO2 60.2 mmHg (80.0-100.0) L 07/12/21 19:50 ABG HCO3 28.6 mmol/L (22-26) H 07/12/21 19:50 ABG Base Excess 4.5 mmol/L (-2.0-2.0) H 07/12/21 19:50 Joey Test N/a 07/12/21 19:50 Hematocrit 42.0 % (37-47) 07/12/21 19:50 O2 Delivery Device Nc 07/12/21 19:50 O2 Liters/Min 3.0 % 07/12/21 19:50 Pipe Line Walker ID [email or web address] 07/12/21 19:50 Sodium 142 mmol/L (136-145) 07/16/21 05:30 Potassium 3.7 mmol/L (3.5-5.1) 07/16/21 05:30 Chloride 102 mmol/L (98-107) 07/16/21 05:30 Carbon Dioxide 24 mmol/L (22-29) 07/16/21 05:30 Anion Gap 19.7 (5-19) H 07/16/21 05:30 BUN 16 mg/dL (8-23) 07/16/21 05:30 Creatinine 0.6 mg/dL (0.5-0.9) 07/16/21 05:30 GFR Calculation Not Reportable 07/16/21 05:30 Glucose 143 mg/dL (65-115) H 07/16/21 05:30 POC Glucose 150 mg/dL (70-110) H 07/16/21 06:31 Estimat Average Glucose 206 07/12/21 18:55 Hemoglobin A1c 8.8 % (4.0-6.0) H 07/12/21 18:55 Calculated Osmolality 298 mOsm/kg (285-295) H 07/16/21 05:30 Calcium 8.7 mg/dL (8.5-10.5) 07/16/21 05:30 Phosphorus 2.3 mg/dL (2.5-4.5) L 07/13/21 07:15 Magnesium 1.8 mg/dL (1.7-2.3) 07/15/21 09:25 Total Bilirubin 0.2 mg/dL (0.15-1.2) 07/16/21 05:30 AST 26 U/L (0-32) 07/16/21 05:30 ALT 14 U/L (0-33) 07/16/21 05:30 Alkaline Phosphatase 155 IU/L (35-105) H 07/16/21 05:30 Creatine Kinase 71 U/L (26-192) 07/13/21 07:15 Troponin T Gen 5 ng/L 109 ng/L (0-10) H* 07/13/21 07:15 Troponin T Baseline 20 ng/L (0-10) H 07/12/21 Unknown Troponin T 120 Minute 124.5 ng/L (0-10) H 07/12/21 20:50 Delta Troponin T 104.5 ABS# (0-10) H* 07/12/21 20:50 Troponin T Hi Sens 6Hr 149.4 ng/L (0-10) H 07/13/21 00:52 Troponin T Hi Sens 6Hr Delta 129.4 ng/L (0-12) H* 07/13/21 00:52 C-Reactive Protein 58.0 mg/L (0.0-4.9) H 07/13/21 07:15 NT-Pro-B Natriuret Pep 5931 pg/mL (0-450) H 07/13/21 07:15 Total Protein 6.2 g/dL (6.6-8.7) L 07/16/21 05:30 Albumin 3.0 g/dL (3.5-5.2) L 07/16/21 05:30 Globulin 3.2 g/dL (1.3-4.6) 07/16/21 05:30 Procalcitonin 0.24 ng/mL (0-0.5) 07/13/21 07:15 TSH 2.16 uIU/mL (0.27-4.20) 07/12/21 Unknown Urine Color Yellow (Yellow) 07/12/21 23:00 Urine Appearance Clear (CLEAR) 07/12/21 23:00 Urine pH 7 (5-7) 07/12/21 23:00 Ur Specific [place] 1.010 (1.005-1.030) 07/12/21 23:00 Urine Protein 1+ (Negative) H 07/12/21 23:00 Urine Glucose (UA) 4+ (Normal) H 07/12/21 23:00 Urine Ketones 2+ (Negative) H 07/12/21 23:00 Urine Blood Neg (Negative) 07/12/21 23:00 Urine Nitrate Negative (Negative) 07/12/21 23:00 Urine Bilirubin Neg (Negative) 07/12/21 23:00 Urine Urobilinogen Norm mg/dL (Negative) 07/12/21 23:00 Ur Leukocyte Esterase Negative (Negative) 07/12/21 23:00 Urine RBC 0-4 /hpf (0-2) H 07/12/21 23:00 Urine WBC 0-4 /hpf (0-5) H 07/12/21 23:00 Ur Squamous Epith Cells 5-10 /hpf (0-5) H 07/12/21 23:00 Amorphous Sediment Not Reportable 07/12/21 23:00 Urine Bacteria Trace /hpf (NONE) 07/12/21 23:00 Urine Yeast 1+ /hpf H 07/12/21 23:00 Influenza Type A Ag Negative (Negative) 07/12/21 20:55 Influenza Type B Ag Negative (Negative) 07/12/21 20:55 SARS-CoV-2 Ag (Rapid) Positive (Negative) H 07/12/21 18:55 Vitals Last Vital Signs Temp 98.3 F 07/15/21 20:00 Pulse 60 07/16/21 07:35 Resp 18 07/16/21 07:30 BP 124/56 07/16/21 04:00 Pulse Ox 93 07/16/21 07:30 Discharge Plan Discharge Patient Disposition: Home Condition: Stable Prescriptions: New pantoprazole [Protonix] 40 mg tablet,delayed release (DR/EC) 40 mg PO BID Qty: 60 0RF cefdinir 300 mg capsule 300 mg PO BID Qty: 6 0RF isosorbide mononitrate 30 mg Tablet Extended Release 24 Hr 30 mg PO DAILY Qty: 30 0RF lisinopril 20 mg Tablet 20 mg PO DAILY Qty: 30 0RF metoprolol tartrate 50 mg Tablet 50 mg PO BID@0900,2100 Qty: 60 0RF Eliquis 5 mg Tablet 2.5 mg PO BID@0900,2100 Qty: 30 0RF clopidogrel 75 mg Tablet 75 mg PO DAILY Qty: 30 0RF nitroglycerin 0.4 mg tablet, sublingual 0.4 mg sublingual Q5M PRN (Reason: chest pain) Qty: 20 0RF Rx Instructions: do not exceed 3 doses per episode Continued trazodone 300 mg tablet 300 mg PO BEDTIME 0RF cholecalciferol (vitamin D3) 1,000 unit capsule 2,000 unit PO QAM 0RF temazepam 30 mg capsule 30 mg PO BEDTIME 0RF gabapentin 300 mg Capsule 300 mg PO TID 0RF albuterol sulfate 2.5 mg /3 mL (0.083 %) Solution For Nebulization 2.5 mg INHALATION Q4H PRN (Reason: Shortness Of Breath) 0RF venlafaxine 150 mg capsule,extended release 24hr 150 mg PO BID 0RF Novolin 70/30 U-100 Insulin 100 unit/mL (70-30) suspension 60 unit SUBCUT BID 0RF penicillin V potassium 500 mg tablet 500 mg PO QID 0RF hydroxyzine HCl 50 mg tablet 50 mg PO TID 0RF hydrocodone-acetaminophen 10-325 mg tablet 1 tab PO Q6H PRN (Reason: Pain) 0RF omeprazole 40 mg capsule,delayed release(DR/EC) 40 mg PO QAM 0RF Colace 100 mg Capsule 200 mg PO BID 0RF lovastatin 20 mg tablet 20 mg PO QPM 0RF albuterol sulfate 90 mcg/actuation HFA aerosol inhaler 2 puff INHALATION Q4H PRN (Reason: Shortness Of Breath) 0RF bupropion HCl 300 mg tablet extended release 24 hr 300 mg PO QAM 0RF melatonin 5 mg Tablet 5 mg PO BEDTIME 0RF Discontinued aspirin [Adult Aspirin Regimen] 81 mg tablet,delayed release (DR/EC) 81 mg PO QAM 0RF warfarin 5 mg tablet 5 mg PO QAM 0RF lisinopril 10 mg tablet 10 mg PO QAM 0RF Discharge Orders: Discharge Order (Routine); Ordered 07/16/21 Ordered By: Blair Mcihael Referrals: Kevin Trevizo MD [Physician] - 2 weeks Gurinder Allen [Primary Care Provider] - 4-7 days Discharge Diet: Cardiac and Diabetic Discharge Activity: Increase activity as tolerated Patient Instructions: Opioid Safety Activity Restrictions/Additional Instructions: Take all medicine as prescribed If any chest discomfort may use sublingual nitroglycerin as prescribed, but be sitting or laying when this occurs. Monitor for any GI bleeding, which could manifest as bright red blood per stool or dark or tarry stool. Note that Coumadin has been discontinued, Eliquis started. Multiple other medical changes as noted. Discharge Attestations Time Spent in Discharge Care*: greater than 30 min Quality Metrics Clinical Quality Measures [ Acute Myocardial Infaction { Clinical Trial Participant: Not a clinical trial participant; Contraindication to aspirin: None; Aspirin prescribed (Although not discharged on aspirin secondary to development of hematoma. Was given during hospital course.); Contraindication to statin: None; Statin prescribed; Contraindication to PCI: Intervention not indicated;}] Coding Level of Care Code Acute [facility] note Diagnoses Elevated troponin R77.8 Type 2 diabetes mellitus E11.9 Benign essential hypertension with target blood pressure below 140/90 I10 Pneumonia due to COVID-19 virus U07.1; J12.82 History of pulmonary embolism Z86.711
[2021-07-16] MEDS: lisinopril 20 mg Tablet PO (09:12)
[2021-07-16] MEDS: docusate sodium 100 mg Capsule PO (09:12)
[2021-07-16] MEDS: cholecalciferol (vitamin D3) 1,000 unit Tablet 2000 UNIT PO (09:12)
[2021-07-16] MEDS: atorvastatin 40 mg Tablet 20 MG PO (09:13)
[2021-07-16] MEDS: metoprolol tartrate 50 mg Tablet PO (09:14)
[2021-07-16] MEDS: gabapentin 300 mg Capsule PO (09:14)
[2021-07-16] MEDS: isosorbide mononitrate ER 30 mg Tablet PO (09:14)
[2021-07-16] MEDS: clopidogrel 75 mg Tablet PO (09:17)
[2021-07-16] MEDS: apixaban 5 mg Tablet 2.5 MG PO (09:17)
[2021-07-16] MEDS: pantoprazole 40 mg SDV IVP (09:18)
[2021-07-16] MEDS: venlafaxine ER (24HR) 150 mg Capsule PO (09:20)
[2021-07-16] MEDS: insulin lispro 100 unit/1 mL SUBCUT ×2 (09:21→13:41)
[2021-07-16 11:14] LABS: Glucose Point of Care 309 mg/dL (70-110)
== END 2021-07-16 13:57 | disposition home or self-care (01) | DRG 177 ==
LOC: ER 21:43 → ER IP 07-13 00:28 → MEDSURG 07-13 13:10
PROVIDERS: Admitting Provider Family Medicine; Emergency Provider Emergency Medicine; PCP Family Medicine; Visit Provider Internal Medicine
DX: U07.1 COVID-19 (principal); J12.82 Pneumonia due to coronavirus disease 2019; I21.4 Non-ST elevation (NSTEMI) myocardial infarction; J44.0 Chronic obstructive pulmonary disease with (acute) lower respiratory infection; Z68.41 Body mass index [BMI] 40.0-44.9, adult; L76.32 Postprocedural hematoma of skin and subcutaneous tissue following other procedure; G93.49 Other encephalopathy; Y84.8 Other medical procedures as the cause of abnormal reaction of the patient, or of later complication, without mention of misadventure at the time of the procedure; Y92.239 Unspecified place in hospital as the place of occurrence of the external cause; I10 Essential (primary) hypertension; E78.5 Hyperlipidemia, unspecified; E11.9 Type 2 diabetes mellitus without complications; G25.0 Essential tremor; D47.2 Monoclonal gammopathy; F41.8 Other specified anxiety disorders; K75.81 Nonalcoholic steatohepatitis (NASH); E66.01 Morbid (severe) obesity due to excess calories; R09.02 Hypoxemia; R27.0 Ataxia, unspecified; R19.5 Other fecal abnormalities; Z86.711 Personal history of pulmonary embolism; Z79.01 Long term (current) use of anticoagulants; Z79.4 Long term (current) use of insulin; Z79.82 Long term (current) use of aspirin
CPT/HCPCS: 36415; 36416; 70450; 71045; 71275; 80053; 81001; 82550; 82803; 82962; 83036; 83735; 83880; 84100; 84145; 84443; 84484; 85014; 85018; 85025; 85378; 85610; 86140; 87086; 87426; 87449; 87804; 93005; 93306; 93970; 94640; 94664; 96360; 96372; 99285; C9113; J0456; J0696; J1100; J1650; J1815; J1940; J7040; J7050; J7626; Q9967

== ENCOUNTER 2021-08-27 11:53 | Outpatient (CLI) | payer MEDICARE, OTHER, SELFPAY ==
--- NOTE | 2021-08-27 12:03 | CT_ITS ---
WS: [id number] NONCONTRAST CT LEFT KNEE TECHNIQUE: Noncontrast CT LEFT knee with coronal and sagittal reformatted images. CLINICAL INFORMATION: M25.562 - Pain in left knee COMPARISON: None. DLP: [address] scans at [facility] use at least one of these dose optimization techniques: automated e xposure control; mA and/or kV adjustment per patient size (includes targeted exams where dose is matc hed to clinical indication); or iterative reconstruction. 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 Hypertrophic patella. Vascular calcification. No signifi cant joint effusion. Mild soft tissue edema. Normal anatomic alignment. Mild hypertrophic spurring ab out the joint line. Slight subchondral cystic change involving the lateral joint compartment. Normal tibial plateau. Normal femoral condyles. Distal femoral shaft and tibial shaft normal in appearance. No acute fractures. CT/CT knee LT wo con* [id number] IMPRESSION: 1. 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 2. Hypertrophic patella. 3. No significant joint effusion. No acute fractures. 4. Mild soft tissue edema. 5. Vascular calcification.
== END 2021-08-27 11:54 | disposition home or self-care (01) ==
LOC: RAD 11:55
PROVIDERS: PCP Family Medicine; Visit Provider Specialist
DX: R60.0 Localized edema (principal); M13.862 Other specified arthritis, left knee
CPT/HCPCS: 73700

== ENCOUNTER → 2021-09-27 10:54 | Outpatient (BNVA) | payer MEDICARE, OTHER, SELFPAY | PROVIDERS: PCP Family Medicine; Visit Provider Internal Medicine Cardiovascular Disease | DX: I21.4 Non-ST elevation (NSTEMI) myocardial infarction (principal); I10 Essential (primary) hypertension; Z86.711 Personal history of pulmonary embolism; E78.5 Hyperlipidemia, unspecified; D47.2 Monoclonal gammopathy; E11.9 Type 2 diabetes mellitus without complications; Z79.4 Long term (current) use of insulin | CPT/HCPCS: 99214 ==

== ENCOUNTER 2021-11-22 07:45 | Outpatient (CLI) | payer MEDICARE, OTHER, SELFPAY ==
[2021-11-22 08:56] VITALS: BMI 33.6
--- NOTE | 2021-11-22 08:58 | ECG_ITS ---
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 Interpretive Statements NAME OF STUDY: LEXISCAN SESTAMIBI STRESS TEST INDICATION: nstemi, PROCEDURE: At the baseline, the EKG revealed normal sinus rhythm with some nonspecific T wave changes. The baseline blood pressure was 150/108 mm Hg with a heart rate of 90 beats/min. Lexiscan was infused over a period of 20 seconds. A total of 0.4 milligrams of Lexiscan was infused. The stress phase was continued for a total of 5 minutes. Heart rate at the end of the stress phase was 67 with a blood pressure 150/101. The EKG at the peak infusion revealed no significant changes. Sestamibi was injected 20 seconds after the Lexiscan infusion. Blood pressure at the end of the recovery phase was 179/100 with a heart rate of 118 per minute. CONCLUSION: 1. No significant EKG changes with the LexiScan infusion 2. No LexiScan induced chest pain or cardiac arrhythmia 3. Normal blood pressure and heart rate response 4. Sestamibi/sestamibi perfusion scan pending; see separate report. Electronically Signed On 12-03-2021 6:35:00 CDT by Kevin Trevizo M.D. [email or web address]
--- NOTE | 2021-11-22 08:58 | NMCV_ITS ---
NM maddie perf SPECT r/s* [id number] Tamar Mercado Age: 76 Gender: F : 1945 Exam Date: 11/22/2021 09:10 Ordering Phys: Kevin Trevizo MD ([email or web address]) Technologist: ROBERTO Rivas Exam Location: [facility] Indications: SHORTNESS OF BREATH STRESS TEST Please see separate stress test report in [facility] for full findings IMAGE PROTOCOL Rest/Stress 1 Lexiscan Day Radiopharmaceutical Dose (mCi) Administration Site Administered by Rest: Tc-99m 10.9 IV ROBERTO Galvez Sestamibi Stress:Tc-99m 33.0 IV ROBERTO Galvez Sestamibi Rest: 22-Nov-2021 60 Discovery 630 Stress: 22-Nov-2021 30 Discovery 630 0.4mg Lexiscan. Supine position only as patient was unable to lay prone. SPECT RESULTS Technical Quality: Excellent Raw Data Analysis: Normal Image Corrections: No attenuation or motion correction applied Summed Stress Score: 3 Summed Rest Score: 2 Summed Difference Score: 1 PERFUSION FINDINGS To moderate area of slightly decreased tracer uptake was noted in the basal, mid and apical inferior wall region. Some reversibility was noted in the basal inferior region, with respect to the supine imaging. However compared to the prone imaging, there may not be a significant reversibility. FUNCTIONAL RESULTS (calculated via Gated SPECT) Stress Image LV EF (%): 53 Stress EDV (mL):138 TID: 0.97 Stress ESV (mL):65 FUNCTIONAL FINDINGS: Segmental wall motion analysis revealing no gross wall motion abnormalities IMPRESSIONS 1. Myocardial perfusion imaging revealing an area of reversible defect in the basal inferior region, suggesting ischemia in the distribution of the right coronary artery. However because the inconsistency with supine imaging, most likely this is artifactual. 2. Normal LV ejection fraction 53%. 3. LV wall motion analysis revealing no gross wall motion abnormalities. 4. Mildly dilated LV cavity with an end-systolic volume of 65 ml. No similar previous studies are available for comparison Dr Kevin Trevizo MD FAC (Electronically Signed) Final Date: 23 November 2021 17:27 S
[2021-11-22] MEDS: regadenoson 0.4 Mg/5 ml Syringe IVP (09:47)
[2021-11-22 10:14] VITALS: BP 179/100; PULSE 67
== END 2021-11-22 07:46 | disposition home or self-care (01) ==
PROVIDERS: PCP Family Medicine; Visit Provider Internal Medicine Cardiovascular Disease
DX: I21.4 Non-ST elevation (NSTEMI) myocardial infarction (principal); R06.02 Shortness of breath
CPT/HCPCS: 78452; 93017; A9500; J2785

== ENCOUNTER → 2021-12-28 10:34 | Outpatient (BNVA) | payer MEDICARE, OTHER, SELFPAY | PROVIDERS: PCP Family Medicine; Visit Provider Internal Medicine Cardiovascular Disease | DX: I25.2 Old myocardial infarction (principal); I11.0 Hypertensive heart disease with heart failure; I50.33 Acute on chronic diastolic (congestive) heart failure; M79.89 Other specified soft tissue disorders; E11.9 Type 2 diabetes mellitus without complications; Z79.84 Long term (current) use of oral hypoglycemic drugs; Z86.711 Personal history of pulmonary embolism; J44.9 Chronic obstructive pulmonary disease, unspecified | CPT/HCPCS: 80048; 83880; 93005; 99214 ==

== ENCOUNTER → 2021-12-31 10:36 | Outpatient (BNVA) | payer MEDICARE, OTHER, SELFPAY | PROVIDERS: PCP Family Medicine; Visit Provider Internal Medicine Cardiovascular Disease | DX: R58 Hemorrhage, not elsewhere classified (principal); Z01.812 Encounter for preprocedural laboratory examination; I10 Essential (primary) hypertension; I21.4 Non-ST elevation (NSTEMI) myocardial infarction; M79.89 Other specified soft tissue disorders | CPT/HCPCS: 80048; 83880; 85025; 85610; 86850; 86900 ==

== ENCOUNTER 2022-01-04 11:34 | Observation (INO) | payer MEDICARE, OTHER, SELFPAY ==
[2022-01-04] VITALS (27 sets, daily range): BP systolic 140–208; BP diastolic 73–138; PULSE 57–66; RESP 13–28; TEMP 36.7; O2SAT 90–97; BMI 38.2
--- NOTE | 2022-01-04 07:30 | XACV_ITS ---
Exam Room: 2 Ht: 170 cm Wt: 111 kg BSA: 2.34 m2 Gender: Female : 1945 Any Known Allergies: Other Exam Priority: Routine Procedure(s): Procedure Description: Diagnostic procedure Procedure Description: Left Heart Catheterization Procedure Description: Coronary Angiography Santhosh MCCABE; Diagnostic Cath Status: Elective Diagnostic Findings * The left main is a medium to large caliber vessel which was found to have minimally narrowing at the distal segment. * The left anterior descending artery is a medium caliber vessel which appears to wrap around the LV apex. The artery was found to have diffuse intimal irregularities. It gives off a high equal caliber diagonal vessel which was found to have around 20 to 30% diffuse irregular narrowing in the proximal segment. No significant stenotic lesions. * The circumflex artery is a medium to large caliber codominant vessel which appears to trifurcate proximally. The high trifurcation branche was found to have around 30% ostial narrowing. The second obtuse marginal artery was found to have no significant stenotic lesion. The third obtuse marginal artery was found to have around 20- 30% tubular narrowing proximally. The distal artery was found to have minimal intimal irregularities with no significant stenotic lesions. * There is related to small caliber intermedius artery with no significant stenotic lesions. * The right coronary artery is a medium caliber codominant vessel which was found to have minimal intimal irregularities in the proximal and mid segment. The PDA and the PLV branches also were found to have minimal diffused intimal irregularities.. Conclusions 1. This 76-year-old white female, who had a recent hospital admission with the features of a non-ST relation myocardial infarction and congestive heart failure. She had a Myocardial perfusion imaging which revealed a small area of ischemia in the distribution of the right coronary artery. Patient continued to have heart failure symptoms. In order to further evaluate her coronary status, a cardiac catheterization was recommended. 2. Patient underwent left heart catheterization with left and right coronary angiogram today. The findings are as follows. Mild diffuse coronary artery disease. Elevated LVEDP of 24 mmHg suggesting left ventricular diastolic dysfunction. Diagnostic RX Recommendation: medical therapy and/or counseling LV EDP: 24 mmHg Left Ventriculography Findings: * The LV gram was not performed because of the limitations on the dye usage. The LVEDP was 24 mmHg. Pressures Phase:Rest AO : 113 / 71 ( 93 ) @ 10:50:00 AM 150 / 73 ( 101 ) @ 10:59:00 AM 153 / 73 ( 102 ) @ 10:59:00 AM 129 / 76 ( 99 ) @ 11:02:00 AM LV : 149 / 2 / 24 @ 10:58:00 AM 150 / 0 / 23 @ 10:59:00 AM Valves Phase:DefaultPhase AV : 0.0 @ 10:15:27 AM AV Mean Gradient: 0.0 @ 10:15:27 AM Clinical Evaluation EBL: 5mL-10mL Procedural Details Procedure Consent Obtained. Admit Source: Out Patient. Pre-Procedure Time Out. Identified patient by full name and date of as verbalized by the patient/guarantor. Does the consent match the physician's order: Yes. Accurate & Complete Informed Consent: Yes. Inpatient/Outpatient History & Physical on Chart: Yes. If H&P is completed, is and addenduem needed: N/A; If yes, is the addendum complete: N/A. Visualize and Verify Site with Patient/Guarantor: N/A. Relevant Radiology Images available: N/A. Pre-op teaching completed and patient verbalized understanding. The risks, benefits, and alternatives of sedation and/or procedure were discussed by physician. The patient agrees to continue. Procedure started. [facility] Clinical Fraility Score: 3: Managing Well. Engineering Officer Indications: Worsening Angina. Chest Pain Symptom Assessment: Atypical Angina. Correct patient, site and procedure confirmed by cath team. Current diagnosis: Chest Pain. PERRLA. Strong, equal hand director process engineering bilaterally. Lungs clear x 5 lobes. IV Site on Arrival: 20 gauge in the left anticubital. IV Fluids: 0.9% NaCl at KVO. 0 mL infused prior to labor arbitrator. Pre Procedural Pulses: right dorsalis pedis was 1+. Pre Procedural Pulses: right radial was 2+. Oxygen started at 2liters/min via nasal canula. right groin was prepped with chloroprep then draped in the usual sterile fashion. right radial was prepped with chloroprep then draped in the usual sterile fashion. Physician notified. Baseline sample Acquired. HR: 67 BPM. Physician arrived. Physician scrubbed in. Immediate Pre-Procedure Time Out. Correct Patient: Yes; Correct Procedure: Yes; Correct Site: Yes; Correct Patient Position: Yes; Correct Supplies: Yes; Dried Flammable Prep: Yes; Blood Products Available: N/A;. Lidocaine 1% infiltrated to the right radial. Arterial access obtained. A 5 kenyan Javan catheter in over wire. Multiple views taken of left coronary artery. Catheter redirected to the RCA. EDP Sample taken: LV 149/2,24; HR: 60 BPM; SpO2: 96%. Pullback taken: LV 150/-1,23; AO 150/73(101); Mean: 0mmHg, Peak to Peak: 0mmHg, SEP: 8sec/min; HR: 61 BPM; SpO2: 96%. Catheter removed over the standard wire. A 5 kenyan JR4 catheter in over wire. Multiple views taken of right coronary artery. Catheter out. Physician review of cine films. Post Procedure: Pulses reassessed and unchanged. PERRLA. Strong, equal hand director process engineering bilaterally. No VTE prophylaxis required. Medication's Wasted: Lidocaine 1% = 3 mL. Medication's Wasted: Nitro = 49.8 mg. Medication's Wasted: Heparin = 1000 U. Total IV fluids: 50 mL. Post-op diagnosis: Non obstructive CAD. Complications: none. Estimated blood loss: 5mL-10mL. Responsiveness - Normal response to verbal stimuli; alert and oriented, PERRLA. Airway - Unaffected, no intervention required; spontaneous ventilation. Circulation: W/N/L, pulses unchanged. Nausea/Vomiting: No. Procedure completed. A TR Band was successful obtaining hemostatsis at the Right Radial artery insertion site. Patient transferred by wheelchair to 1st floor. Vital chart was stopped. Access Site Site: Right Radial artery Sheath Size: 6 Fr Hemostasis Method: TR Band Hemostasis Success: Successful Procedure Medications Start: 9:40 AM Stop: 9:40 AM Medication: Versed Amount: 1 mg Route: I.V. Start: 9:40 AM Stop: 9:40 AM Medication: Fentanyl Amount: 50 mcg Route: I.V. Start: 9:46 AM Stop: 9:46 AM Medication: Verapamil Amount: 200 mcg Route: I.A. Start: 9:46 AM Stop: 9:46 AM Medication: Nitrogylcerin Amount: 200 mcg Route: I.A. Start: 9:53 AM Stop: 9:53 AM Medication: Versed Amount: 1 mg Route: I.V. Start: 9:53 AM Stop: 9:53 AM Medication: Fentanyl Amount: 50 mcg Route: I.V. Start: 10:02 AM Stop: 10:02 AM Medication: Heparin Amount: 5000 units Route: I.V. I, the attending physician, have reviewed and verified all procedure medications. Yes, all medications given per verbal order History/Risk Factors Hypertension: Yes Dyslipidemia: Yes Peripheral Arterial Disease (PAD): No Myocardial Infarction (AZ): No Obesity: Yes Renal Disease: No Prior Interventions PCI: No CABG: No Valve Surgery: No Report Signatures Finalized by Dr Kevin Trevizo MD [facility] on 01/04/2022 08:41 PM
[2022-01-04] MEDS: diphenhydrAMINE 50 mg Capsule PO (08:00)
[2022-01-04] MEDS: metoprolol tartrate 25 mg Tablet 12.5 MG PO (08:28)
[2022-01-04] MEDS: isosorbide mononitrate 20 mg Tablet 30 MG PO (08:28)
[2022-01-04] MEDS: lisinopril 20 mg Tablet 40 MG PO (08:29)
[2022-01-04] MEDS: clopidogrel 75 mg Tablet PO (08:29)
--- NOTE | 2022-01-04 11:14 | PC.NURSE ---
received from cardiac laboratory associate via bed at 1030.pt is drowsy..easily awakened.alert and oriented x 3.sr on monitor.denies pain.right wrist with tr band on and inflated.right hand is warm to touch and with brisk capillary refill.no hematoma noted.palpable radial pulse noted distal to tr band.pt instructed in activity restrictions post radial artery procedure...and instructed to notify staff for any bleeding,pain,cp,sob or for any concerns at all.pt verb understanding of instructions
[2022-01-04] MEDS: hyDROXYzine 25 mg Capsule 50 MG PO (15:33)
[2022-01-04] MEDS: amlodipine 5 mg Tablet PO (15:33)
[2022-01-04] MEDS: gabapentin 300 mg Capsule PO (15:33)
--- NOTE | 2022-01-04 15:43 | PC.NURSE ---
tr band slowly deflated and eventually removed at 1540.no hematoma noted.palpable radial pulse noted.right hand warm to touch and with brisk capillary refill.site dressed with 2x2 gauze and secured with biocclusive drsg.instructed pt in activity restrictions and instructed to notify staff for any bleeding,bruising,pain,numbness or for any concerns at all.pt verb understanding of instructions.dr harris notified of bp's on higher side..he ordered amlodipine 5 mg po-now.given as ordered.
[2022-01-04] MEDS: HYDROcodone-acetaminophen 10-325 mg Tablet 1 TAB PO (16:49)
--- NOTE | 2022-01-04 17:12 | PC.NURSE ---
bp has improved.discharge instructions given and explained to cg ().he verb understanding of instructions.discharged via w/c to exit.spouse to drive pt home.
--- NOTE | 2022-01-26 21:29 | W.PM.OPSUD ---
Surgery/Procedure H&P Update DATE OF PROCEDURE: January 04, 2022 DATE H&P PERFORMED: 12/28/21 H&P UPDATE INFORMATION: I have reviewed H&P completed within last 30 days, I have examined patient prior to procedure and No changes to prior documentation PREOP DIAGNOSIS: ASHD PRIMARY INDICATION FOR PROCEDURE: NSTEMI/ abnormal MPI/ T2DM, HTN, Pulmonary embolism PLANNED PROCEDURE: Operation Date: 01/04/22 08:30 Proposed Procedures p Cardiac Catheterization(Left) - Kevin Trevizo MD PATIENT REASSESSED PRIOR TO SEDATION, WITH NO CHANGE NOTED: Yes PHYSICAL EXAM: alert, oriented x 3, clear to auscultation bilaterally and regular rate & rhythm AIRWAY EVAL/ANESTHESIA PLAN: normal airway, see other exam findings, ASA III, Monitored Anesthesia, Local Anesthesia, Risks, benefits & alternatives of sedation and/or procedure discussed and Patient agrees to continue as planned
== END 2022-01-04 17:14 | disposition home or self-care (01) ==
LOC: CSU 11:34
PROVIDERS: Admitting Provider Internal Medicine Cardiovascular Disease; PCP Family Medicine; Visit Provider Internal Medicine Cardiovascular Disease
DX: I25.10 Atherosclerotic heart disease of native coronary artery without angina pectoris (principal); I10 Essential (primary) hypertension; E78.5 Hyperlipidemia, unspecified; E66.9 Obesity, unspecified; Z68.38 Body mass index [BMI] 38.0-38.9, adult; I25.2 Old myocardial infarction; Z86.711 Personal history of pulmonary embolism; E11.9 Type 2 diabetes mellitus without complications; J44.9 Chronic obstructive pulmonary disease, unspecified
CPT/HCPCS: 36415; 93452; 93458; 96360; 99152; 99153; C1769; C1887; C1894; G0378; J1644; J2250; J3010; J3490; J7030; Q0163; Q9967

== ENCOUNTER → 2022-01-12 11:18 | Outpatient (BNVA) | payer MEDICARE, OTHER, SELFPAY | PROVIDERS: PCP Family Medicine; Visit Provider Nurse Practitioner Family | DX: I21.4 Non-ST elevation (NSTEMI) myocardial infarction (principal); I10 Essential (primary) hypertension; I25.10 Atherosclerotic heart disease of native coronary artery without angina pectoris; I50.22 Chronic systolic (congestive) heart failure | CPT/HCPCS: 80048; 83880; 99214 ==

== ENCOUNTER → 2022-03-04 15:22 | Outpatient (BNVA) | payer MEDICARE, OTHER, SELFPAY | PROVIDERS: PCP Family Medicine; Referring Provider Family Medicine; Visit Provider Podiatrist Foot & Ankle Surgery | DX: E11.9 Type 2 diabetes mellitus without complications (principal); M20.41 Other hammer toe(s) (acquired), right foot; M20.42 Other hammer toe(s) (acquired), left foot; R60.9 Edema, unspecified; G62.9 Polyneuropathy, unspecified; Z79.4 Long term (current) use of insulin | CPT/HCPCS: 73630; 99203; 99204 ==

== ENCOUNTER → 2022-05-06 15:07 | Outpatient (BNVA) | payer MEDICARE, OTHER, SELFPAY | PROVIDERS: PCP Family Medicine; Visit Provider Podiatrist Foot & Ankle Surgery | DX: S92.911A Unspecified fracture of right toe(s), initial encounter for closed fracture (principal); W06.XXXA Fall from bed, initial encounter; E11.9 Type 2 diabetes mellitus without complications; M20.41 Other hammer toe(s) (acquired), right foot; M20.42 Other hammer toe(s) (acquired), left foot; R60.9 Edema, unspecified; G62.9 Polyneuropathy, unspecified; Z79.4 Long term (current) use of insulin | CPT/HCPCS: 73620; 99214 ==

== ENCOUNTER → 2022-06-28 10:09 | Outpatient (BNVA) | payer MEDICARE, OTHER, SELFPAY | PROVIDERS: PCP Family Medicine; Visit Provider Internal Medicine Cardiovascular Disease | DX: I25.10 Atherosclerotic heart disease of native coronary artery without angina pectoris (principal); E11.9 Type 2 diabetes mellitus without complications; Z79.4 Long term (current) use of insulin; I10 Essential (primary) hypertension; E78.5 Hyperlipidemia, unspecified; Z86.711 Personal history of pulmonary embolism; R27.0 Ataxia, unspecified; Z79.01 Long term (current) use of anticoagulants | CPT/HCPCS: 99214 ==

== ENCOUNTER 2022-08-17 13:20 | Inpatient (IN) | payer MEDICARE, OTHER, SELFPAY ==
[2022-08-17] VITALS (20 sets, daily range): BP systolic 115–157; BP diastolic 51–74; PULSE 63–119; RESP 16–26; TEMP 37–37.2; O2SAT 91–97; BMI 39.1
--- NOTE | 2022-08-17 14:27 | XRR_ITS ---
PROCEDURE INFORMATION: Exam: XR Right Wrist Exam date and time: 08/17/2022 2:36 PM Age: 77 years old Clinical indication: Injury or trauma; Fall; Blunt trauma (contusions or hematomas); Wrist; Right TECHNIQUE: Imaging protocol: Radiologic exam of the right wrist. Views: 3 or more views. COMPARISON: No relevant prior studies available. FINDINGS: Bones/joints: No fracture or dislocation is seen about the wrist. Mild degenerative change. No acute osseous abnormality. Soft tissues: No abnormal soft tissue calcification is seen. XR/XR wrist RT min 3V* [id number] IMPRESSION: Mild degenerative change, and without fracture.
--- NOTE | 2022-08-17 14:27 | CTR_ITS ---
PROCEDURE INFORMATION: Exam: CT Head Without Contrast Exam date and time: 08/17/2022 3:05 PM Age: 77 years old Clinical indication: Injury or trauma; Fall; Blunt trauma (contusions or hematomas) TECHNIQUE: Imaging protocol: Computed tomography of the head without contrast. Radiation optimization: All CT scans at this facility use at least one of these dose optimization techniques: automated exposure control; mA and/or kV adjustment per patient size (includes targeted exams where dose is matched to clinical indication); or iterative reconstruction. REPORTING DATA: Count of CT and Cardiac NM exams in prior 12 months: This patient has received 2 known CTs and 0 known cardiac nuclear medicine studies in the 12 months prior to the current study. COMPARISON: CT head wo con* [id number] 07/12/2021 7:02 PM RADIATION DOSE METRICS: Total DLP (mGy-cm): 1178.68 FINDINGS: Brain: Atrophic or involutional change for age. Sequela of chronic small-vessel disease change in the periventricular region and including small old lacunar infarct in the basal ganglia on both sides. No intracranial hemorrhage or hematoma is seen. No mass effect or shift of midline structures. No findings to indicate large vessel ischemic change or infarct. Cerebral ventricles: No significant ventriculomegaly. Paranasal sinuses: Mild mucosal thickening or mucosal sinus disease noted within the right maxillary, ethmoid, frontal, and sphenoid sinuses.. Mastoid air cells: Visualized mastoid air cells are well aerated. Bones/joints: Bone windows of the skull show no acute abnormality. Soft tissues: Unremarkable. Other findings: No acute change from prior exam. CT/CT head wo con* [id number] IMPRESSION: 1. Atrophic or involutional change for age, including sequela of chronic small-vessel disease change. 2. No acute intracranial abnormality. 3. Mild mucosal sinus disease involving portions of the right maxillary, ethmoid, frontal, and sphenoid sinuses.
--- NOTE | 2022-08-17 14:29 | W.ED.WEAKNES ---
HPI - Weakness General: Chief complaint: Weakness Stated complaint: weakness/falls Time Seen by Provider: 08/17/22 13:29 Source: patient and family Mode of arrival: ambulatory Limitations: no limitations History of Present Illness: This patient came to the emergency department company by her spouse. She has a history of recent fall and was seen at the emergency department at [facility] because of this fall and had imaging and was observed for period of time in that facility and then discharged. She is here today because her who was in the other room returned back to her room and found her on the floor where she apparently had fallen again. She allegedly has a history of recurrent falls due to irregular gait. She also has a concomitant dementia history. relates that she is on warfarin due to prior DVT. She apparently had 1 episode of DVT approximately 2 years ago states she has never had DVTs prior or subsequently. Regarding her episode few days ago as well as today she specifically adamantly denies passing out or having chest pain palpitations arrhythmia etc. Associated symptoms: Reports easy bruising; Denies chest pain, chills, dysuria, fever(s), headache(s), nausea, syncope or vomiting Review of Systems Const: Denies: fever(s) or chills Eyes: Denies: change in vision ENMT: Denies: throat pain or odynophagia Card: Denies: chest pain, syncope or pre-syncope Resp: Denies: dyspnea, productive cough or non-productive cough GI: Denies: abdominal pain, nausea, vomiting or diarrhea : Denies: flank pain, difficulty voiding, dysuria or urinary frequency Musc: Reports: extremity pain (Right wrist); Denies: neck pain, back pain or extremity swelling Skin/Breast: Denies: rash Neuro: Reports: frequent falls; Denies: headache(s), numbness in extremities, weakness in extremities, Slurred speech present or seizure-like activity Sharath/Lymph: Reports: easy bruising PFSH ED PFSH: Medical History Ataxia Chronic pain COPD (chronic obstructive pulmonary disease) Dyslipidemia Essential tremor History of pulmonary embolism (~06/2019) had s/s of covid 19, but never tested. Assumed possibly related Hypertension Memory loss MGUS (monoclonal gammopathy of unknown significance) Nonalcoholic steatohepatitis Type 2 diabetes mellitus Surgical History H/O arthroscopy of shoulder right H/O bladder repair surgery 2 separate procedures. First one to repair due to prolapse and leaking. Sling repaired 4-6 years later. H/O melanoma excision (~1995) Upper right thigh H/O: hysterectomy (~1975) TVH--benign reasons. Performed [facility]. She has her ovaries. History of phacoemulsification of cataract of both eyes with intraocular lens implantation Family History Family/Other No problems noted. Brother Hypercholesteremia Sister Hypercholesteremia Mother Stroke at age 72 due to cerebral aneurysm rupture Denies family history of Colon cancer Ovarian cancer Diabetes Heart disease Breast cancer Hypertension Uterine cancer Thyroid disease Social History Smoking and tobacco status: never smoked Alcohol intake: never Physical Exam Narrative: EXAM NARRATIVE: The patient is alert makes good eye contact answers questions appropriately and readily. Appears comfortable Const: COMMON NORMALS: no acute distress and alert GENERAL APPEARANCE: cooperative and comfortable ORIENTATION/CONSCIOUSNESS: Yes awake and Yes oriented to person HENMT: HEAD & SCALP: contusion (She has contusions about her forehead cheek and face which appear to be in ); no palpable skull fracture and no scalp tenderness FACE & SINUS: face symmetric Eye: COMMON NORMALS: Equal, round and reactive pupils present, EOMs intact bilaterally and conjunctivae normal CONJUNCTIVA: Yes conjunctivae normal PUPIL: Yes Equal, round and reactive pupils present Neck/C-Spine: COMMON NORMALS: full ROM CERVICAL SPINE: Yes cervical ROM normal, No pain with cervical ROM, No Cervical spine tenderness, No step off deformity, No Paracervical spasm and No Trapezius muscle tenderness OTHER: She has no midline tenderness step-off. She has normal range of motion without discomfort. Chest: COMMONS NORMALS: normal inspection of the chest Resp: COMMON NORMALS: normal respiratory effort, No use of accessory muscles and clear to auscultation bilaterally EFFORT & INSPECTION: Yes able to speak in complete sentences AUSCULTATION: clear to auscultation bilaterally Cardio: COMMON NORMALS: regular rate, regular rhythm, No murmurs present (Cardio) and Peripheral pulses 2+ throughout RATE: regular rate RHYTHM: regular rhythm PERIPHERAL PULSES: Peripheral pulses 2+ throughout GI: COMMON NORMALS: Normal to inspection, nondistended, normoactive bowel sounds present, Soft to palpation and non-tender PALPATION: Yes Soft to palpation : COMMON NORMALS: Yes no CVA tenderness BLADDER/KIDNEY EXAM: Yes no CVA tenderness Back/Pelvis: COMMON NORMALS: no CVA tenderness, thoracic and lumbar spine normal to inspection and no thoracic nor lumbar tenderness Extremity: RIGHT UPPER EXTREMITY: Yes wrist (Tender) and Yes hand & digits (Tender) Neuro: COMMON NORMALS: moves all extremities, no focal motor deficits and no sensory deficits noted SENSORIUM/ORIENTATION: Yes alert and Yes oriented to person Course Reevaluation(s): Reevaluation #1: Patient was reevaluated. Compared with my initial evaluation she seems to be wheezing and having a little more work of breathing at this time. relates she does have a history of oxygen dependent COPD and uses nebulizers as needed. I related to them my current findings and recommendations and they voiced understanding. We will go ahead and give her a nebulized treatment at this time continue on IV fluids. We will plan on placing her in observation to ensure that her potassium corrects as well as her kidney function improves with hydration. Time: 16:07 Consultations: Consultation #1: Discussed with hospitalist who agreed to admit patient. Time: 16:58 Vital Signs: Vital signs: Vital Signs Pulse Rate 78 08/17/22 16:25 Respiratory Rate 24 H 08/17/22 16:18 Blood Pressure 115/51 08/17/22 14:30 Pulse Oximetry 94 08/17/22 16:18 Oxygen Delivery Me thod 08/17/22 16:18 Oxygen Flow Rate 3 08/17/22 16:18 MDM - Weakness Medical Decision Making This patient was brought to the emergency department by her because he is concerned she had a second fall today. Does have a history of frequent falls and had a fall several days ago was evaluated in another emergency department and not found to have any concerning injury after period of observation. She did have a another unobserved fall today and therefore brought her to our emergency department. She has a history of being on warfarin for what is a ill described thromboembolic event several years ago. She has continued to be on that medication subsequently without any other history of arrhythmias etc. She also has a history of mild cognitive decline. She denies any history of syncope or other prodrome to her falls. Her evaluation in the emergency department to evaluate for possible intracranial hemorrhage, arrhythmia etc. included imaging which did not reveal any evidence of intracranial hemorrhage. Plain films were obtained to evaluate for a hand injury and did not find any evidence of a fracture in the hand or wrist. Subsequent labs revealed an elevated potassium, elevated creatinine consistent with acute kidney injury. This may or may not of been a contributing factor to her recent falls. This is a change from prior kidney function. IV fluids were begun and subsequently it was noted that she had increased work of breathing with wheezing and a appropriate treatment was instituted for her COPD. She is being admitted for hydration to help reverse the effects of her acute kidney injury as well as following her potassium to ensure that she does not develop any untoward effects such as arrhythmias etc. She is not displaying EKG changes of worrisome nature while in the emergency department. This was discussed with the patient and spouse who agreed to the plan of care. Medical Records I reviewed the patient's medical records. Patient imaging history was reviewed. She did have a CTA of her chest on 19 July 2019 which there was some suggestion of small pulmonary emboli but not definitive. She has subsequently had a chest CTA on 13 July and that revealed no evidence of pulmonary emboli. She also had a venous Doppler performed in the same date which showed no evidence of DVT. Prior echocardiogram revealed a ejection fraction of approximately or equal to 60% Lab Data I reviewed the patient's lab results. Evidence of significant creatinine elevation or prior available within our system. 08/17/22 13:33 08/17/22 13:[address] 08/17/22 14:27 IMPRESSION: 1. Atrophic or involutional change for age, including sequela of chronic small-vessel disease change. 2. No acute intracranial abnormality. 3. Mild mucosal sinus disease involving portions of the right maxillary, ethmoid, frontal, and sphenoid sinuses. Wrist X-Ray 08/17/22 14:27 IMPRESSION: Mild degenerative change, and without fracture. Laboratory Results WBC 16.0 10^3/uL (4.0-10.0) H 08/17/22 13:33 RBC 3.98 10^6/uL (4.1-5.3) L 08/17/22 13:33 Hgb 10.8 g/dL (11.5-15.3) L 08/17/22 13:33 Hct 35.6 % (37.0-47.0) L 08/17/22 13:33 MCV 89.4 fl (81-99) 08/17/22 13:33 MCH 27.1 pg (28.0-34.0) L 08/17/22 13:33 MCHC 30.3 g/dL (30.0-36.0) 08/17/22 13:33 RDW 14.5 % (12.1-15.1) 08/17/22 13:33 Plt Count 313 10^3/cmm (130-400) 08/17/22 13:33 MPV 10.9 fL (7.4-10.4) H 08/17/22 13:33 Neut % (Auto) 62.6 % 08/17/22 13:33 Lymph % (Auto) 22.8 % 08/17/22 13:33 [place] % (Auto) 4.6 % 08/17/22 13:33 Eos % (Auto) 5.6 % 08/17/22 13:33 Baso % (Auto) 0.4 % 08/17/22 13:33 Neut # (Auto) 10.00 10^3/uL (1.8-7.7) H 08/17/22 13:33 Lymph # (Auto) 3.6 10^3/uL (0.8-4.8) 08/17/22 13:33 [place] # (Auto) 0.7 10^3/uL (0.2-0.9) 08/17/22 13:33 Eos # (Auto) 0.9 10^3/uL (0.0-0.8) H 08/17/22 13:33 Baso # (Auto) 0.1 10^3/uL (0.0-0.1) 08/17/22 13:33 Nucleated RBC % (auto) 0 % 08/17/22 13:33 Nucleated RBCs # 0.0 /100WBC 08/17/22 13:33 PT 24.80 SECONDS (12.1-14.9) H 08/17/22 15:15 INR 2.15 (0.8-1.2) H 08/17/22 15:15 Sodium 132 mmol/L (136-145) L 08/17/22 13:33 Potassium 6.1 mmol/L (3.5-5.1) H 08/17/22 13:33 Chloride 98 mmol/L (98-107) 08/17/22 13:33 Carbon Dioxide 22 mmol/L (22-29) 08/17/22 13:33 Anion Gap 18.1 (5-19) 08/17/22 13:33 BUN 37 mg/dL (8-23) H 08/17/22 13:33 Creatinine 2.3 mg/dL (0.5-0.9) H 08/17/22 13:33 GFR Calculation Not Reportable 08/17/22 13:33 Glucose 225 mg/dL (65-115) H 08/17/22 13:33 POC Glucose 215 mg/dL (70-110) H 08/17/22 14:29 Calculated Osmolality 290 mOsm/kg (285-295) 08/17/22 13:33 Calcium 8.5 mg/dL (8.5-10.5) 08/17/22 13:33 Total Bilirubin 0.2 mg/dL (0.15-1.2) 08/17/22 13:33 AST 15 U/L (0-32) 08/17/22 13:33 ALT 15 U/L (0-33) 08/17/22 13:33 Alkaline Phosphatase 147 U/L (35-105) H 08/17/22 13:33 Total Protein 7.0 g/dL (6.6-8.7) 08/17/22 13:33 Albumin 3.3 g/dL (3.5-5.2) L 08/17/22 13:33 Globulin 3.7 g/dL (1.3-4.6) 08/17/22 13:33 EKG Data EKG 1: I personally reviewed and interpreted this EKG as follows: Interpretation: Contemporaneous review of resting EKG reveals ventricular to 62 bpm. Normal IN interval, QRS duration corrected QT interval. EKG 2: I personally reviewed and interpreted this EKG as follows: Interpretation: Contemporaneous review of second EKG this visit reveals ventricular rate of 67 bpm. Normal IN interval, QRS duration. QTc is normal. Normal axis. No acute ST-T wave changes noted. Discharge Plan Discharge Patient Disposition: Placed in Observation Clinical Impression: Acute kidney injury, COPD (chronic obstructive pulmonary disease), Hyperkalemia, Falls frequently Coding Level of Care Code ED Steward/Stewardess Night for Terri Lackey
[2022-08-17 14:31] LABS: Glucose Point of Care 215 mg/dL (70-110)
[2022-08-17 14:45] LABS: Basophils # 0.1 10^3/uL (0.0-0.1); Basophils % 0.4 %; Eosinophils # 0.9 10^3/uL (0.0-0.8); Eosinophils % 5.6 %; Hematocrit 35.6 % (37.0-47.0); Hemoglobin 10.8 g/dL (11.5-15.3); Lymphocytes # 3.6 10^3/uL (0.8-4.8); Lymphocytes % 22.8 %; Mean Corpuscular HGB Conc 30.3 g/dL (30.0-36.0); Mean Corpuscular Hemoglobin 27.1 pg (28.0-34.0); Mean Corpuscular Volume 89.4 fl (81-99); Mean Platelet Volume 10.9 fL (7.4-10.4); Monocytes # 0.7 10^3/uL (0.2-0.9); Monocytes % 4.6 %; Neutrophils % 62.6 %; Nucleated Red Blood Cells % 0 %; Platelet Count 313 10^3/cmm (130-400); Red Blood Count 3.98 10^6/uL (4.1-5.3); Red Cell Distribution Width 14.5 % (12.1-15.1)
[2022-08-17 15:04] LABS: Alanine Aminotransferase 15 U/L (0-33); Albumin Level 3.3 g/dL (3.5-5.2); Alkaline Phosphatase 147 U/L (35-105); Anion Gap 18.1 (5-19); Aspartate Amino Transferase 15 U/L (0-32); Blood Urea Nitrogen 37 mg/dL (8-23); Calcium 8.5 mg/dL (8.5-10.5); Carbon Dioxide 22 mmol/L (22-29); Chloride 98 mmol/L (98-107); Globulin 3.7 g/dL (1.3-4.6); Glucose 225 mg/dL (65-115); Osmolality Calculated 290 mOsm/kg (285-295); Potassium 6.1 mmol/L (3.5-5.1); Sodium 132 mmol/L (136-145); Total Bilirubin 0.2 mg/dL (0.15-1.2)
--- NOTE | 2022-08-17 15:38 | ECG_ITS ---
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 Measurements Intervals [place] Rate: 67 P: 63 FL: 187 QRS: 22 QRSD: 92 T: 77 QT: 396 QTc: 419 Interpretive Statements SINUS RHYTHM LOW QRS VOLTAGE IN PRECORDIAL LEADS [QRS DEFLECTION < 1.0 mV IN CHEST LEADS] NONSPECIFIC T-WAVE ABNORMALITY Compared to ECG 07/15/2021 06:04:30 Low QRS voltage now present T-wave abnormality still present Electronically Signed On 08-17-2022 16:23:24 SAP SD ANALYST by Kevin Trevizo M.D. [email or web address]
[2022-08-17 15:39] LABS: INR 2.15 (0.8-1.2)
[2022-08-17] MEDS: ipratropium-albuterol 3 mL Neb INHALATION (16:18)
--- NOTE | 2022-08-17 17:02 | CTR_ITS ---
PROCEDURE INFORMATION: Exam: CT Chest Without Contrast; Diagnostic Exam date and time: 08/17/2022 6:59 PM Age: 77 years old Clinical indication: Condition or disease; Other: Lung mass? ? Mgus; Lung condition and disease; Additional info: Lung mass? , HX of mgus TECHNIQUE: Imaging protocol: Diagnostic computed tomography of the chest without contrast. Radiation optimization: All CT scans at this facility use at least one of these dose optimization techniques: automated exposure control; mA and/or kV adjustment per patient size (includes targeted exams where dose is matched to clinical indication); or iterative reconstruction. REPORTING DATA: Count of CT and Cardiac NM exams in prior 12 months: This patient has received 3 known CTs and 0 known cardiac nuclear medicine studies in the 12 months prior to the current study. COMPARISON: CT angio chest PE protcl [id number] 07/13/2021 6:35 AM RADIATION DOSE METRICS: Total DLP (mGy-cm): 1681.07 FINDINGS: Lungs: Interval development opacity or area of consolidation mid right lung, extending from the hilum laterally to the pleural margin. This is new from prior exam. Subpleural pulmonary parenchymal density is seen within the lower right lung with adjacent mild thick walled bulla or bleb or pneumatocele. This appears increased within the right lung base from previous exam. Mild curvilinear density in the anterior upper right lung is unchanged from prior exam, atelectasis versus scarring. Pleural spaces: See Lungs finding. Heart: Coronary artery calcifications without significant cardiomegaly or pericardial effusion. Lymph nodes: Equivocal lymph node prominence within the mediastinum and right hilum. Vasculature: Mild arteriosclerosis of the thoracic aorta. Bones/joints: Degenerative change thoracic spine with severe compression deformity T8, with some continued interval progression from previous exam. Soft tissues: Unremarkable. PROCEDURE INFORMATION: Exam: CT Abdomen And Pelvis Without Contrast Exam date and time: 08/17/2022 6:59 PM Age: 77 years old Clinical indication: Condition or disease; Other: Lung mass? ? Mgus; Lung condition and disease; Additional info: Lung mass? , HX of mgus TECHNIQUE: Imaging protocol: Computed tomography of the abdomen and pelvis without contrast. Radiation optimization: All CT scans at this facility use at least one of these dose optimization techniques: automated exposure control; mA and/or kV adjustment per patient size (includes targeted exams where dose is matched to clinical indication); or iterative reconstruction. REPORTING DATA: Count of CT and Cardiac NM exams in prior 12 months: This patient has received 3 known CTs and 0 known cardiac nuclear medicine studies in the 12 months prior to the current study. COMPARISON: CT abdomen pelvis w con* [id number] 06/30/2021 5:10 PM RADIATION DOSE METRICS: Total DLP (mGy-cm): 1681.07 FINDINGS: Liver: Ill-defined low-density area within the right lobe of the liver appears unchanged with prior exam suggesting benign change such as focal fatty infiltration or other benign lesion. Gallbladder and bile ducts: Normal. No calcified stones. No ductal dilation. Pancreas: Normal. No ductal dilation. Spleen: Normal. No splenomegaly. Adrenal glands: Normal. No mass. Kidneys and ureters: Too small to characterize rounded low-density focus within the cortex of the right kidney, unchanged with prior exam. This is suggestive of benign finding. Stomach and bowel: Mild colonic diverticulosis, particularly sigmoid colon, without CT findings of diverticulitis. No bowel obstruction. Appendix: Not definitely seen, without secondary findings of appendicitis. Intraperitoneal space: Unremarkable. No free air. No significant fluid collection. Vasculature: Atherosclerotic vascular calcification without aneurysmal dilatation of the abdominal aorta. Lymph nodes: Unremarkable. No enlarged lymph nodes. Urinary bladder: Unremarkable as visualized. Reproductive: Suggestion of previous hysterectomy. Bones/joints: Mild chronic compression deformity L4. Soft tissues: Unremarkable. CT/[place] [id number] IMPRESSION: 1. Opacity or area of consolidation mid right lung extending from the right hilum laterally to the pleural margin, new from prior exam. This may represent an area of consolidated pneumonia, though consider postobstructive pneumonia from the right hilar region. 2. Increased area of subpleural pulmonary opacity within the right lung base in association with a mild thick walled bulla or bleb versus pneumatocele. Findings are more suggestive of right basilar pneumonia, with interval increase from prior exam. 3. Chronic changes otherwise when correlated with prior exam. IMPRESSION: 1. Unchanged ill-defined low-density area right lobe of the liver suggestive of benign findings such as geographic fatty liver. 2. Mild sigmoid colon diverticulosis without diverticulitis. 3. Chronic changes otherwise, without acute findings.
[2022-08-17 17:59] LABS: Lactic Sepsis W/Reflex 1.1 mmol/L (0.5-2.2)
[2022-08-17 18:08] LABS: Thyroid Stimulating Hormone 2.77 uIU/mL (0.27-4.20)
[2022-08-17] MEDS: sodium chloride 0.9% 1,000 ML 75 ML IV ×2 (18:50→21:47)
[2022-08-17] MEDS: calcium gluconate 0.9% NaCL 1 GM/50 ML PREMIX IV (19:15)
--- NOTE | 2022-08-17 20:06 | P.HP_ITS ---
Providers/Chief Complaint Primary Care Provider: Gurinder Allen Chief Complaint: weakness/falls History of Present Illness Tamar Mercado is a 77 year old female who was seen at [facility] where she was discharged after initial work-up, presented to the hospital after she was found on the ground by her . Patient is stating that she is not able to recall what happened. is at the bedside who is providing history, as per the she has been weak and lethargic for quite some time but today after they came back from the ER he found her in the living room facedown, patient is denying chest pain, shortness of breath, fever, nausea, vomiting however has noticed audible wheezing. No recent fever or antibiotics results. As per the recently at [facility] chest x-ray showed lung mass/consolidation for which they asked them to follow-up with PCP Dr. Torres. Patient is denying any symptoms at the time of evaluation She is full code In the ER she has been diagnosed with A-fib which is chronic, she takes Coumadin, as per the she has had more than 10 episodes of falls in the last 12 months, we discussed contraindication to anticoagulating agent she is taking Coumadin for her history of PE in the past. I requested CT abdomen pelvis and chest which is showing possibility for pos tobstructive pneumonia, hilar opacity concerning for lung mass and both agreeable for biopsy if needed Review of Systems Const: Denies: fever(s) Eyes: Denies: change in vision ENMT: Denies: throat pain Card: Denies: chest pain Resp: Denies: dyspnea GI: Denies: abdominal pain : Denies: flank pain Musc: Denies: neck pain Skin/Breast: Reports: rash Neuro: Denies: headache(s) Psych: Reports: anxiety Endo: Denies: polyuria Sharath/Lymph: Denies: easy bruising All/Imm: Denies: urticaria Medications/Allergies Home Medications Medication Instructions Recorded Confirmed Last Taken Type cholecalciferol (vitamin D3) 25 2,000 unit PO QAM 06/27/19 08/17/22 08/17/22 History mcg (1,000 unit) capsule trazodone 300 mg tablet 300 mg PO BEDTIME 06/27/19 08/17/22 08/16/22 History gabapentin 300 mg capsule 300 mg PO TID 07/19/19 08/17/22 08/17/22 History temazepam 30 mg capsule 30 mg PO BEDTIME 04/27/20 08/17/22 08/16/22 History albuterol sulfate 90 mcg/actuation 2 puff inhalation Q4H PRN 07/13/21 08/17/22 Unknown History aerosol inhaler Shortness Of Breath bupropion HCl 300 mg 24 hr tablet, 300 mg PO QAM 07/13/21 08/17/22 08/17/22 History extended release docusate sodium 100 mg capsule 200 mg PO BID 07/13/21 08/17/22 01/03/22 09:30 History (Colace) hydrocodone 10 mg-acetaminophen 1 tab PO Q6H PRN Pain 07/13/21 08/17/22 01/03/22 19:00 History 325 mg tablet hydroxyzine HCl 50 mg tablet 50 mg PO TID anxiety 07/13/21 08/17/22 08/17/22 History insulin human U-100 NPH-regulr 40 unit SUBCUT BID 07/13/21 08/17/22 08/17/22 History 70-30 mix 100 unit/mL subcutaneous susp (Novolin 70/30 U-100 Insulin) lovastatin 20 mg tablet 20 mg PO QPM 07/13/21 08/17/22 08/16/22 History melatonin 5 mg tablet 5 mg PO BEDTIME 07/13/21 08/17/22 08/16/22 History omeprazole 40 mg capsule,delayed 40 mg PO QAM 07/13/21 08/17/22 08/17/22 History release venlafaxine 150 mg 150 mg PO BID 07/13/21 08/17/22 08/17/22 History capsule,extended release 24 hr nitroglycerin 0.4 mg sublingual 0.4 mg sublingual Q5M PRN chest 07/16/21 08/17/22 Unknown Rx tablet pain #20 tabs lisinopril 40 mg tablet 40 mg PO DAILY #90 tabs 12/28/21 08/17/22 08/17/22 Rx potassium chloride 20 mEq 20 meq PO DAILY 12/28/21 08/17/22 08/17/22 History tablet,extended release omega 6-fif-wyv-fish oil 1,200 mg 1 cap PO DAILY 01/12/22 08/17/22 08/17/22 History (144 mg-216 mg) capsule (Fish Oil) isosorbide mononitrate 30 mg 30 mg PO DAILY #90 tabs 02/11/22 08/17/22 08/17/22 Rx tablet,extended release 24 hr metoprolol tartrate 25 mg tablet 12.5 mg PO BID #90 tabs 02/11/22 08/17/22 Rx Diabetic Shoes #1 ea 03/04/22 08/17/22 Unknown Rx furosemide 40 mg tablet 40 mg PO DAILY #100 tabs 05/16/22 08/17/22 08/17/22 Rx amlodipine 2.5 mg tablet 2.5 mg PO DAILY 06/28/22 08/17/22 08/17/22 History sulfamethoxazole 800 1 tab PO BID 08/17/22 08/17/22 08/17/22 History mg-trimethoprim 160 mg tablet Allergies Allergy/AdvReac Type Severity Reaction Status Date / Time cortisone Allergy Unknown Verified 08/17/22 14:08 latex Allergy unknown Verified 08/17/22 14:08 oxycodone Allergy unknown Verified 08/17/22 14:08 primidone Allergy Unknown Verified 08/17/22 14:08 ticagrelor [From Brilinta] Allergy Unknown Verified 08/17/22 14:08 PFSH Acute PFSH: Medical History Ataxia Chronic pain COPD (chronic obstructive pulmonary disease) Dyslipidemia Essential tremor History of pulmonary embolism (~06/2019) had s/s of covid 19, but never tested. Assumed possibly related Hypertension Memory loss MGUS (monoclonal gammopathy of unknown significance) Nonalcoholic steatohepatitis Type 2 diabetes mellitus Surgical History H/O arthroscopy of shoulder right H/O bladder repair surgery 2 separate procedures. First one to repair due to prolapse and leaking. Sling repaired 4-6 years later. H/O melanoma excision (~1995) Upper right thigh H/O: hysterectomy (~1975) TVH--benign reasons. Performed [facility]. She has her ovaries. History of phacoemulsification of cataract of both eyes with intraocular lens implantation Family History Family/Other No problems noted. Brother Hypercholesteremia Sister Hypercholesteremia Mother Stroke at age 72 due to cerebral aneurysm rupture Denies family history of Colon cancer Ovarian cancer Diabetes Heart disease Breast cancer Hypertension Uterine cancer Thyroid disease Social History Smoking and tobacco status: never smoked Alcohol intake: never Vitals/I&O/Wt Last Vital Signs Pulse 68 08/17/22 19:38 Resp 22 H 08/17/22 18:30 BP 128/63 08/17/22 19:38 Pulse Ox 94 08/17/22 19:38 O2 Del Method 08/17/22 17:00 O2 Flow Rate 3 08/17/22 16:18 Weight last 48 hrs Weight 113.398 kg Physical Exam Narrative: Pleasant cooperative female Seems to have underlying dementia Cognitive impairment Memory loss Not endorsing active chest pain Morbidly obese Skin is dehydrated S1, S2 No murmur appreciated Abdomen soft Hemodynamically stable Currently on 2 L Variable S1-S2 A-fib Multiple bruises and petechiae all over her face Nonfocal neuro exam GCS 15 Awake alert Data 08/17/22 13:33 08/17/22 13:33 A&P Assessment and plan (1) Acute kidney injury: (2) COPD (chronic obstructive pulmonary disease): (3) Hyperkalemia: (4) Falls frequently: (5) Ataxia: (6) Type 2 diabetes mellitus: (7) MGUS (monoclonal gammopathy of unknown significance): (8) Postobstructive pneumonia: (9) Syncope: Plan Syncope Requested echo Serial troponin and EKG CT head unremarkable History of ataxia Recurrent falls A-fib Anticoagulation with Coumadin Check INR I would not recommend continuation of Coumadin at this point more than 10 falls in last 12 months Hilar mass postobstructive pneumonia Patient will need further investigation Agreeable for biopsy if needed We will touch base with IR versus pulmonary Start broad-spectrum antibiotics Dementia without acute exacerbation Acute kidney injury related to dehydration Patient clinically looks dehydrated MGUS: Patient does not see oncologist in the last 8 months Full code Cardiac diet DVT prophylaxis heparin Discontinue Coumadin Patient is agreeable for long term placement, is at the bedside Attestations Medical Necessity Statement*: More than 2 midnights anticipated Diagnoses Acute kidney injury N17.9 COPD (chronic obstructive pulmonary disease) J44.9 Hyperkalemia E87.5 Falls frequently R29.6 Ataxia R27.0 Type 2 diabetes mellitus E11.9 MGUS (monoclonal gammopathy of unknown significance) D47.2 Postobstructive pneumonia J18.9 Syncope R55
[2022-08-17 20:08] LABS: Anion Gap 17.1 (5-19); Blood Urea Nitrogen 39 mg/dL (8-23); Calcium 8.5 mg/dL (8.5-10.5); Carbon Dioxide 22 mmol/L (22-29); Chloride 101 mmol/L (98-107); Glucose 178 mg/dL (65-115); Osmolality Calculated 292 mOsm/kg (285-295); Potassium 6.1 mmol/L (3.5-5.1); Sodium 134 mmol/L (136-145)
--- NOTE | 2022-08-17 20:44 | USCV_ITS ---
Tamar Mercado Age: 77 Gender: F : 1945 Exam Date: 08/17/2022 22:02 Ordering Phys: Junie Ambrosio MD Technologist: ANASTASIA Exam Location: [facility] – [place] Indication: r/o heart failure patient is s/p fall and cannot lie LLD, has dementia, constantly moving. prior echo = poor windows BP: 131 / 74 HR: 69 Rhythm: Sinus Technical Quality: Very technically difficult study MEASUREMENTS (Male / Female) Normal Values 2D ECHO LV Diastolic Diameter PLAX 4.4 cm 4.2 - 5.9 / 3.9 - 5.3 cm LV Systolic Diameter PLAX 2.8 cm IVS Diastolic Thickness 1.4 cm 0.6 - 1.0 / 0.6 - 0.9 cm IVS Systolic Thickness 1.8 cm LVPW Diastolic Thickness 1.4 cm 0.6 - 1.0 / 0.6 - 0.9 cm LVPW Systolic Thickness 1.0 cm LVOT Diameter 1.9 cm LV Ejection Fraction 2D Teich 68.2 % LV Ejection Fraction MOD 2C 54.4 % LV Ejection Fraction 2C AL 53.4 % LA Diameter 3.2 cm LA Width 3.4 cm LA Height 4.1 cm RA Width 3.4 cm RA Height 4.0 cm Aorta at Sinotubular Diameter 2.9 cm IVC Diameter 1.3 cm M-MODE Aortic Annulus Diameter 3.6 cm LA Ao Ratio MM 1.0 DOPPLER AV Peak Velocity 134.0 cm/s LVOT Peak Velocity 80.0 cm/s AV Area Cont Eq vti 2.0 cm squared AV Area Cont Eq pk 1.7 cm squared MV Area PHT 3.1 cm squared Mitral E to A Ratio 0.6 MV E' Velocity 27.5 cm/s Mitral E to MV E' Ratio 6.5 Mitral E to LV E' Lateral Ratio 8.4 Mitral E to LV E' Septal Ratio 5.3 TR Peak Velocity 223.0 cm/s TR Peak Gradient 19.9 mmHg TV Peak E Velocity 91.0 cm/s Right Atrial Pressure 5.0 mmHg Pulmonary Artery Systolic Pressu 24.9 mmHg FINDINGS Left Ventricle Left ventricle is normal in size. LV systolic function is normal with EF 55 to 60%. No regional wall motion abnormalities are seen. Grade 1 diastolic dysfunction. Right Ventricle Not well-visualized. Right Atrium Normal in size Left Atrium Normal in size Mitral Valve Grossly normal Aortic Valve Structurally normal aortic valve. No significant stenosis or regurgitation is seen. Tricuspid Valve Mild tricuspid regurgitation. Pulmonary artery systolic pressure is normal Pulmonic Valve Not well visualized. Pericardium Normal Aorta Normal in size IVC Not well-visualized. CONCLUSIONS Technically limited quality echocardiogram because of poor ultrasonic windows. LV systolic function is normal with EF 55 to 60%. Grade 1 diastolic dysfunction Mild tricuspid regurgitation Compared to prior echocardiogram from 06/2021, no significant changes are seen. Mitch Roldan MD (Electronically Signed) Final Date: 18 August 2022 12:29 S
[2022-08-17] MEDS: metoprolol tartrate 25 mg Tablet 12.5 MG PO (21:29)
[2022-08-17] MEDS: HYDROcodone-acetaminophen 10-325 mg Tablet 1 TAB PO (21:29)
[2022-08-17] MEDS: venlafaxine ER (24HR) 150 mg Capsule PO (21:29)
[2022-08-17] MEDS: sodium polystyrene sulfonate 15 gm/60 mL Btl PO (21:31)
[2022-08-17] MEDS: sodium bicarbonate 8.4% 1 mEq/mL 50mL Syr 25 MEQ IVP (21:36)
[2022-08-17] MEDS: insulin glargine 100 units/1 mL 20 UNIT SUBCUT (21:45)
[2022-08-17] MEDS: cefepime 2,000 MG in sodium chloride 0.9% (plus) 50 ML 100 MG IV (21:46)
[2022-08-17 22:04] LABS: Glucose Point of Care 171 mg/dL (70-110)
[2022-08-17] MEDS: vancomycin 1,000 MG in sodium chloride 0.9% 250 ML 250 MG IV (23:18)
[2022-08-17] MEDS: temazepam 15 mg Capsule 30 MG PO (23:23)
[2022-08-17] MEDS: trazodone 150 mg Tablet 300 MG PO (23:24)
[2022-08-18] VITALS (10 sets, daily range): BP systolic 110–155; BP diastolic 45–81; PULSE 61–80; RESP 15–24; TEMP 36.7–37.2; O2SAT 91–97
[2022-08-18 03:59] LABS: Basophils % 0.2 %; Eosinophils # 0.9 10^3/uL (0.0-0.8); Eosinophils % 7.6 %; Hematocrit 32.2 % (37.0-47.0); Hemoglobin 9.9 g/dL (11.5-15.3); Lymphocytes # 3.3 10^3/uL (0.8-4.8); Lymphocytes % 28.7 %; Mean Corpuscular HGB Conc 30.7 g/dL (30.0-36.0); Mean Corpuscular Hemoglobin 27.6 pg (28.0-34.0); Mean Corpuscular Volume 89.7 fl (81-99); Mean Platelet Volume 10.3 fL (7.4-10.4); Monocytes # 0.8 10^3/uL (0.2-0.9); Neutrophils # 6.31 10^3/uL (1.8-7.7); Neutrophils % 54.4 %; Nucleated Red Blood Cells % 0 %; Platelet Count 251 10^3/cmm (130-400); Red Blood Count 3.59 10^6/uL (4.1-5.3); Red Cell Distribution Width 14.4 % (12.1-15.1); White Blood Count 11.6 10^3/uL (4.0-10.0)
[2022-08-18 04:17] LABS: Alanine Aminotransferase 13 U/L (0-33); Albumin Level 3.1 g/dL (3.5-5.2); Alkaline Phosphatase 126 U/L (35-105); Anion Gap 14.4 (5-19); Aspartate Amino Transferase 11 U/L (0-32); Blood Urea Nitrogen 30 mg/dL (8-23); Calcium 8.2 mg/dL (8.5-10.5); Carbon Dioxide 24 mmol/L (22-29); Chloride 104 mmol/L (98-107); Globulin 3.3 g/dL (1.3-4.6); Glucose 199 mg/dL (65-115); Osmolality Calculated 296 mOsm/kg (285-295); Potassium 5.4 mmol/L (3.5-5.1); Sodium 137 mmol/L (136-145); Total Bilirubin 0.2 mg/dL (0.15-1.2); Total Protein 6.4 g/dL (6.6-8.7)
[2022-08-18] MEDS: ipratropium-albuterol 3 mL Neb INHALATION (04:48)
[2022-08-18] MEDS: pantoprazole DR 40 mg Tablet PO (05:45)
[2022-08-18] MEDS: cholecalciferol (vitamin D3) 1,000 unit Tablet 2000 UNIT PO (05:45)
[2022-08-18 06:34] LABS: Glucose Point of Care 173 mg/dL (70-110)
[2022-08-18] MEDS: cefepime 2,000 MG in sodium chloride 0.9% (plus) 50 ML 100 MG IV ×2 (09:21→21:47)
[2022-08-18] MEDS: insulin lispro 100 unit/1 mL SUBCUT ×4 (09:21→22:05)
[2022-08-18] MEDS: isosorbide mononitrate ER 30 mg Tablet PO (09:22)
[2022-08-18] MEDS: metoprolol tartrate 25 mg Tablet 12.5 MG PO ×2 (09:22→18:25)
[2022-08-18] MEDS: venlafaxine ER (24HR) 150 mg Capsule PO ×2 (09:22→18:24)
--- NOTE | 2022-08-18 10:06 | PC.CHAP ---
Pastoral Care Encounter/Spiritual Assessment Type of Contact [] Declined radiologic technology teacher visit [] Patient/Family/Request visit [] Outpatient visit [] Follow-up visit [] Physician referral [] Code/Alert [x] Routine visit [] Staff referral [] Actively dying [] Patient sleeping [] Family support [] [] Out of room [] Palliative care [] [x] Receiving care in room [] Pre-surgical visit [] Trauma [] Long length of stay [] ICU visit [x] Other: Dialysis Relational/Emotional Strength [] Patient feels connected with others/family/visitors/staff [] Distress [] Loneliness/isolation [] Abandonment Spirituality of Patient [] Person of Amanda [] Attends Muslim of their Amanda [] Believes in Prayer [] Reads Bible or Hinduism materials [] There are Spiritual issues to be addressed Accounts Payable Analyst Interventions [] Prayer [] Active listening [] Non-anxious presence [] Spiritual/emotional support [] Crisis/trauma care [] Spiritual counseling [] Bereavement support [] Provided bereavement packet [] Provided Bible/devotional materials [] Provided toy/stuffed animal, coloring book to patient or family member [] Provided Communion [] Anointing/[place] [] Salvation [] Completed spiritual assessment [] Other: Impact on Illness or Injury [] Angry [] Fearful [] Anxious [] Often cries [] Exhaustion [] Unable to work [] Unable to attend pentecostal [] Unable to walk/stand [] Unable to read [] Unable to drive [] Unable to eat/drink [] Unable to sleep [] Unable to be with family [] Patient intubated [] Other: Summary Dialysis Time spent with patient 5 mins
--- NOTE | 2022-08-18 10:25 | P.PN_ITS ---
Subjective Subjective: This morning patient is pleasantly confused Oriented to herself Not able to give me appropriate answers is not at the bedside Afebrile Carries history of dementia CT head showed sinusitis Normal TSH White count 11.6 Hemoglobin 9.9 INR 2.1 Potassium improved 5.4 Creatinine 1.7, I gave her IV fluids Vitals/I&O/Wt Last Vital Signs Temp 98.9 F 08/18/22 08:00 Pulse 71 08/18/22 08:00 Resp 18 08/18/22 08:00 BP 134/68 08/18/22 08:00 Pulse Ox 94 08/18/22 08:00 O2 Del Method 08/18/22 08:00 O2 Flow Rate 2 08/18/22 07:27 08/17/22 08/18/22 08/18/22 22:59 06:59 14:59 Intake Total 688.75 / 688.75 540 / 1228.75 Output Total 600 / 600 1225 / 1825 Balance 88.75 / 88.75 -685 / -596.25 Weight last 48 hrs Weight 111.13 kg Weight 113.398 kg Physical Exam Narrative: Pleasantly confused Nonfocal neuro exam Petechiae and bruises all over her extremities No active bleeding Able to follow commands Abdomen soft S1, S2 variable Short attention span No active focal deficits Currently on room air Hemodynamically stable Urinary Catheter Management: Pierre: Cath Placed During This Visit: yes Reason for Continuing Indwelling Catheter: Acute Urinary Retention or Obstruction Urinary Catheter Date of Insertion: 08/17/22 Urinary Catheter Time of Insertion: 20:22 Data 08/18/22 03:21 08/18/22 03:21 A&P Assessment and plan (1) Syncope: (2) Postobstructive pneumonia: (3) Acute kidney injury: (4) COPD (chronic obstructive pulmonary disease): (5) Hyperkalemia: (6) Falls frequently: (7) Ataxia: (8) MGUS (monoclonal gammopathy of unknown significance): (9) Type 2 diabetes mellitus: (10) Dyslipidemia: (11) History of pulmonary embolism: Plan 77-year-old female with history of COPD, history of pulm embolism on ant icoagulation, Santos, uses a wheeled walker at home for ambulation, insulin- dependent diabetic, right hepatic lobe hemangioma, was diagnosed with COVID-19 last year, presented to the hospital with chief complaint of syncopal event Syncope Previous echo showed preserved ejection fraction normal diastolic function Requested echo D-dimer requested as well Patient clinically looks dehydrated She received fluids before orthostatics No recurrent syncopal events in the hospital No signs of cardiac arrhythmia Patient has history of ataxia secondary to peripheral neuropathy Recurrent falls as per the more than 10 episodes of falls in the last 12 months Negative stress test in November last year DECLAN related dehydration which is improving with IV fluid hydration Dementia:CT head showing age-related changes Short attention span Pleasant but confused Able to answer few questions No active fever Postobstructive pneumonia Currently on cefepime and vancomycin Concern for hilar mass with postobstructive pneumonia Pulmonary not on-call Patient is not able to give consent stating he would like to go ahead for biopsy if needed For now and continuing her IV antibiotics Decision regarding inpatient versus outpatient bronchoscopy for diagnostic purposes for now she is not showing signs of worsening currently doing well on room air Afebrile No active signs of sepsis Current falls: I did recommend against continuation of anticoagulating agent, patient is showing signs of petechia purpura all over her extremities More than 10 falls in the last 1 year Patient is full code goals of care discussed with She might need SNF placement at disposition We will request physical therapy consis carb diet Full code SNF placement needed clerk manager updated Attestations Medical Necessity Statement*: Continue medical management Diagnoses Syncope R55 Postobstructive pneumonia J18.9 Acute kidney injury N17.9 COPD (chronic obstructive pulmonary disease) J44.9 Hyperkalemia E87.5 Falls frequently R29.6 Ataxia R27.0 MGUS (monoclonal gammopathy of unknown significance) D47.2 Type 2 diabetes mellitus E11.9 Dyslipidemia E78.5 History of pulmonary embolism Z86.711
[2022-08-18 11:22] LABS: D Dimer 1.17 ug/mIFEU (0-0.59)
[2022-08-18 12:05] LABS: Glucose Point of Care 202 mg/dL (70-110)
[2022-08-18 16:38] LABS: Glucose Point of Care 321 mg/dL (70-110)
[2022-08-18] MEDS: atorvastatin 40 mg Tablet 20 MG PO (18:24)
[2022-08-18 20:28] LABS: Glucose Point of Care 271 mg/dL (70-110)
[2022-08-18] MEDS: temazepam 15 mg Capsule 30 MG PO (22:05)
[2022-08-18] MEDS: trazodone 150 mg Tablet 300 MG PO (22:05)
[2022-08-18] MEDS: insulin glargine 100 units/1 mL 20 UNIT SUBCUT (22:05)
[2022-08-19] VITALS (11 sets, daily range): BP systolic 132–177; BP diastolic 74–92; PULSE 57–76; RESP 15–19; TEMP 36.5–37; O2SAT 91–100
[2022-08-19 05:35] LABS: Hematocrit 30.6 % (37.0-47.0); Hemoglobin 9.6 g/dL (11.5-15.3); Mean Corpuscular HGB Conc 31.4 g/dL (30.0-36.0); Mean Corpuscular Hemoglobin 27.2 pg (28.0-34.0); Mean Corpuscular Volume 86.7 fl (81-99); Mean Platelet Volume 10.1 fL (7.4-10.4); Platelet Count 275 10^3/cmm (130-400); Red Blood Count 3.53 10^6/uL (4.1-5.3); Red Cell Distribution Width 14.4 % (12.1-15.1); White Blood Count 10.4 10^3/uL (4.0-10.0)
[2022-08-19] MEDS: cholecalciferol (vitamin D3) 1,000 unit Tablet 2000 UNIT PO (06:08)
[2022-08-19] MEDS: pantoprazole DR 40 mg Tablet PO (06:08)
[2022-08-19] MEDS: sodium chloride 0.9% 1,000 ML 75 ML IV (06:08)
[2022-08-19 06:09] LABS: Anion Gap 15.3 (5-19); Blood Urea Nitrogen 14 mg/dL (8-23); Calcium 8.6 mg/dL (8.5-10.5); Carbon Dioxide 23 mmol/L (22-29); Chloride 107 mmol/L (98-107); Glucose 119 mg/dL (65-115); Osmolality Calculated 294 mOsm/kg (285-295); Potassium 4.3 mmol/L (3.5-5.1); Sodium 141 mmol/L (136-145)
[2022-08-19 06:23] LABS: Absolute Segmented Neutrophil 5.6 10/cmm (1.6-7.1); Band Neutrophils Absolute 0.4 10^3/cmm (0.0-1.2); Segmented Neutrophils 54 %; Total Cells Counted 100 (0-100)
[2022-08-19 06:24] LABS: Absolute Eosinophils 0.4 10^3/cmm (0.0-0.7); Eosinophils 4 %; Lymphocytes 36 %; Lymphocytes Absolute 3.7 10^3/cmm (1.2-3.4); Monocytes Absolute 0.2 10^3/cmm (0.1-0.6); Platelet Estimate Normal (Normal)
[2022-08-19 06:41] LABS: Glucose Point of Care 110 mg/dL (70-110)
[2022-08-19] MEDS: metoprolol tartrate 25 mg Tablet 12.5 MG PO ×2 (08:46→17:19)
[2022-08-19] MEDS: venlafaxine ER (24HR) 150 mg Capsule PO ×2 (08:46→17:19)
[2022-08-19] MEDS: isosorbide mononitrate ER 30 mg Tablet PO (08:46)
[2022-08-19] MEDS: cefepime 2,000 MG in sodium chloride 0.9% (plus) 50 ML 100 MG IV (08:47)
[2022-08-19] MEDS: vancomycin 1,000 MG in sodium chloride 0.9% 250 ML 250 MG IV (10:02)
[2022-08-19] MEDS: HYDROcodone-acetaminophen 10-325 mg Tablet 1 TAB PO ×2 (11:11→17:18)
[2022-08-19 11:54] LABS: Glucose Point of Care 179 mg/dL (70-110)
[2022-08-19] MEDS: insulin lispro 100 unit/1 mL SUBCUT ×2 (12:02→17:32)
[2022-08-19] MEDS: azithromycin 250 mg Tablet 500 MG PO (15:10)
[2022-08-19] MEDS: cefTRIAXone 1,000 MG in sodium chloride 0.9% (plus) 50 ML 100 MG IV (15:11)
[2022-08-19 15:19] LABS: SARS Covid-2 Antigen negative (Negative)
--- NOTE | 2022-08-19 15:25 | P.PN_ITS ---
Subjective Subjective: Complains of reproducible chest tenderness over the left chest wall. Except for generalized weakness. No further falls noted in the hospital. Afebrile, hemodynamically stable. She is alert awake able to answer most questions, needs to be reoriented to place. Vitals/I&O/Wt Last Vital Signs Temp 98.2 F 08/19/22 12:00 Pulse 65 08/19/22 14:00 Resp 16 08/19/22 12:00 BP 158/82 08/19/22 12:00 Pulse Ox 100 08/19/22 12:00 O2 Del Method 08/19/22 04:00 O2 Flow Rate 2 08/19/22 04:00 08/19/22 08/19/22 08/19/22 06:59 14:59 22:59 Intake Total 240 / 1700 300 / 300 671.25 / 971.25 Output Total 1350 / 3025 Balance -1110 / -1325 300 / 300 671.25 / 971.25 Weight last 48 hrs Weight 111.13 kg Physical Exam Narrative: General: No acute distress, AO x3 HEENT: PERRLA, pupils bilaterally equal and reactive, pallors not present Chest: Normal vesicular breath sounds, no added sounds, equal good air entry bilaterally CVS: S1-S2 regular, no murmurs, no tachycardia, no gallops, no rubs Abdomen: Soft, nontender, no organomegaly, bowel sounds present Neuro: No focal deficits, no facial deformity, AO x3, power 5/5 in all limbs Extremities: Multiple bruising noted all over body Urinary Catheter Management: Pierre: Cath Placed During This Visit: yes Reason for Continuing Indwelling Catheter: Other Urinary Catheter Date of Insertion: 08/17/22 Urinary Catheter Time of Insertion: 20:22 Data 08/19/22 05:08 08/19/22 05:08 A&P Assessment and plan (1) Syncope: (2) Postobstructive pneumonia: (3) Acute kidney injury: (4) COPD (chronic obstructive pulmonary disease): (5) Hyperkalemia: (6) Falls frequently: (7) Ataxia: (8) MGUS (monoclonal gammopathy of unknown significance): (9) Type 2 diabetes mellitus: (10) Dyslipidemia: (11) History of pulmonary embolism: Plan 77-year-old female with history of COPD, history of pulm embolism on anticoagulation, Santos, uses a wheeled walker at home for ambulation, insulin- dependent diabetic, right hepatic lobe hemangioma, was diagnosed with COVID-19 last year, presented to the hospital with chief complaint of syncopal event # recurrent Syncope echo showed preserved ejection fraction normal diastolic function Patient clinically dehydrated initially upon admission, currently euvolemic. Discontinue IV fluids. 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 Discontinue IV fluids today. # Dementia:CT head showing age-related changes Short attention span Pleasant but confused Able to answer few questions # Postobstructive pneumonia Currently on cefepime and vancomycin, de-escalate to ceftriaxone and add atypical coverage with azithromycin for 3 days. Concern for hilar/endobronchial mass with postobstructive pneumonia Pulmonary not on-call until September 06 We will need to expedite her appointment as outpatient to evaluate for bronchoscopy # recurrent falls: We will likely need to remain off anticoagulation given recurrent falls and multiple bruising all over. Patient is full code goals of care discussed with Therapy assessments demonstrating reduced endurance, will benefit from ongoing physical and occupational therapy. Awaiting appropriate disposition planning. consis carb diet Full code Attestations Medical Necessity Statement*: Needs continued admission for IV antibiotics, was likely to benefit from ongoing skilled intensive therapy Coding Level of Care Code Acute Code for Chg Fwd Moderate MDM includes number and complexity of problems actively addressed during encounter, amount and/or complexity of data reviewed/ordered and described risk of complication, morbidity or mortality of management as documented Diagnoses Syncope R55 Postobstructive pneumonia J18.9 Acute kidney injury N17.9 COPD (chronic obstructive pulmonary disease) J44.9 Hyperkalemia E87.5 Falls frequently R29.6 Ataxia R27.0 MGUS (monoclonal gammopathy of unknown significance) D47.2 Type 2 diabetes mellitus E11.9 Dyslipidemia E78.5 History of pulmonary embolism Z86.711
[2022-08-19] MEDS: atorvastatin 40 mg Tablet 20 MG PO (17:18)
[2022-08-19 17:26] LABS: Glucose Point of Care 243 mg/dL (70-110)
[2022-08-19] MEDS: temazepam 15 mg Capsule 30 MG PO (20:20)
[2022-08-19] MEDS: trazodone 150 mg Tablet 300 MG PO (20:21)
[2022-08-19] MEDS: insulin glargine 100 units/1 mL 20 UNIT SUBCUT (20:21)
[2022-08-19 20:37] LABS: Glucose Point of Care 191 mg/dL (70-110)
[2022-08-20] VITALS (10 sets, daily range): BP systolic 130–187; BP diastolic 73–86; PULSE 57–121; RESP 15–19; TEMP 36.6–36.8; O2SAT 90–99
[2022-08-20] MEDS: pantoprazole DR 40 mg Tablet PO (05:18)
[2022-08-20] MEDS: cholecalciferol (vitamin D3) 1,000 unit Tablet 2000 UNIT PO (05:18)
[2022-08-20 07:01] LABS: Glucose Point of Care 216 mg/dL (70-110)
[2022-08-20] MEDS: isosorbide mononitrate ER 30 mg Tablet PO (08:22)
[2022-08-20] MEDS: azithromycin 250 mg Tablet 500 MG PO (08:22)
[2022-08-20] MEDS: insulin lispro 100 unit/1 mL SUBCUT ×2 (08:22→13:12)
[2022-08-20] MEDS: venlafaxine ER (24HR) 150 mg Capsule PO ×2 (08:22→17:47)
[2022-08-20] MEDS: metoprolol tartrate 25 mg Tablet 12.5 MG PO ×2 (08:22→17:47)
--- NOTE | 2022-08-20 11:57 | PC.SOCIAL ---
Pg 2 IMM Explained to pt Pg 2 IMM. No questions voiced. Provided pt a copy. Initialed, dated, & timed a copy & placed in chart.
[2022-08-20 13:01] LABS: Glucose Point of Care 145 mg/dL (70-110)
--- NOTE | 2022-08-20 14:15 | P.PN_ITS ---
Subjective Subjective: Patient is trending towards hypertension today. Systolic blood pressure has been ranging between 158 to 181 mmHg. No new complaints offered today. Medications: Reviewed: Yes Vitals/I&O/Wt Last Vital Signs Temp 98 F 08/20/22 12:00 Pulse 60 08/20/22 12:00 Resp 15 08/20/22 08:00 BP 150/73 08/20/22 12:00 Pulse Ox 97 08/20/22 12:00 O2 Del Method 08/20/22 04:00 O2 Flow Rate 2 08/20/22 08:00 08/19/22 08/20/22 08/20/22 22:59 06:59 14:59 Intake Total 1081.25 / 1381.25 240 / 1621.25 Output Total 1525 / 1525 325 / 1850 Balance -443.75 / -143.75 -85 / -228.75 Physical Exam Narrative: General: No acute distress, AO x2-3 HEENT: PERRLA, pupils bilaterally equal and reactive, pallors not present Chest: Normal vesicular breath sounds, no added sounds, equal good air entry bilaterally CVS: S1-S2 regular, no murmurs, no tachycardia, no gallops, no rubs Abdomen: Soft, nontender, no organomegaly, bowel sounds present Neuro: No focal deficits, no facial deformity, AO x3, power 5/5 in all limbs Urinary Catheter Management: Pierre: Cath Placed During This Visit: yes Reason for Continuing Indwelling Catheter: Other Urinary Catheter Date of Insertion: 08/17/22 Urinary Catheter Time of Insertion: 20:22 Data 08/19/22 05:08 08/19/22 05:08 Micro: Microbiology 08/19/22 14:40 MRSA Culture - Final Nose 08/19/22 14:58 Bacterial Antigens - Final Urine,Voided A&P Assessment and plan (1) Syncope: (2) Postobstructive pneumonia: (3) Acute kidney injury: (4) COPD (chronic obstructive pulmonary disease): (5) Hyperkalemia: (6) Falls frequently: (7) Ataxia: (8) MGUS (monoclonal gammopathy of unknown significance): (9) Type 2 diabetes mellitus: (10) Dyslipidemia: (11) History of pulmonary embolism: Plan 77-year-old female with history of COPD, history of pulm embolism on anticoagulation, Santos, uses a wheeled walker at home for ambulation, insulin- dependent diabetic, right hepatic lobe hemangioma, was diagnosed with COVID-19 last year, presented to the hospital with chief complaint of syncopal event # recurrent Syncope CT head with Atrophic or involutional change for age, including sequela of chronic small-vessel disease change. Will obtain carotid duplex echo showed preserved ejection fraction normal diastolic function Patient clinically dehydrated initially upon admission, currently euvolemic. 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 No evidence of orthostatic hypotension has been found. Patient's blood pressure is now trending towards hypertension with systolic up to 180 mmHg. We will resume her home home medication of amlodipine, however will increase dose from 2.5 mg daily to 5 mg p.o. daily as intent to keep lisinopril still on hold. Continue Imdur 30 mg p.o. daily heart rate currently well controlled with metoprolol 12.5 mg p.o. twice daily. # DECLAN related to dehydration which is improving with IV fluid hydration, creatinine now at 1.1. IV fluids discontinued Home dose of Lasix resumed Lisinopril to be still on hold. # Dementia:CT head showing age-related changes Short attention span Pleasant but confused Able to answer few questions # Postobstructive pneumonia treated with cefepime and vancomycin 08/17-08/19, de-escalate to ceftriaxone and azithromycin on 08/20. Plan to treat for total 7 day course Concern for hilar/endobronchial mass with postobstructive pneumonia Pulmonary not on-call until September 06 We will need to expedite her appointment as outpatient to evaluate for bronchoscopy # recurrent falls: We will likely need to remain off anticoagulation given recurrent falls and multiple bruising all over. Patient is full code goals of care discussed with Therapy assessments demonstrating reduced endurance, will benefit from ongoing physical and occupational therapy. Awaiting appropriate disposition planning. consis carb diet Full code Attestations Medical Necessity Statement*: Hypertensive, resuming home medications while closely monitoring blood pressure trend, remove Pierre, will benefit from intensive therapy while awaiting appropriate disposition planning Coding Level of Care Code Acute Code for Chg Fwd Moderate MDM includes number and complexity of problems actively addressed during encounter, amount and/or complexity of data reviewed/ordered and described risk of complication, morbidity or mortality of management as documented Diagnoses Syncope R55 Postobstructive pneumonia J18.9 Acute kidney injury N17.9 COPD (chronic obstructive pulmonary disease) J44.9 Hyperkalemia E87.5 Falls frequently R29.6 Ataxia R27.0 MGUS (monoclonal gammopathy of unknown significance) D47.2 Type 2 diabetes mellitus E11.9 Dyslipidemia E78.5 History of pulmonary embolism Z86.711
[2022-08-20] MEDS: amlodipine 5 mg Tablet PO (14:39)
[2022-08-20 17:05] LABS: Glucose Point of Care 129 mg/dL (70-110)
[2022-08-20] MEDS: atorvastatin 40 mg Tablet 20 MG PO (17:47)
[2022-08-20] MEDS: buPROPion XL (24 HR) 300 mg Tablet PO (17:47)
[2022-08-20] MEDS: temazepam 15 mg Capsule 30 MG PO (20:29)
[2022-08-20] MEDS: insulin glargine 100 units/1 mL 20 UNIT SUBCUT (20:29)
[2022-08-20] MEDS: trazodone 150 mg Tablet 300 MG PO (20:29)
[2022-08-20 20:52] LABS: Glucose Point of Care 242 mg/dL (70-110)
[2022-08-21] VITALS (13 sets, daily range): BP systolic 123–182; BP diastolic 71–90; PULSE 62–75; RESP 17–22; TEMP 36.3–36.9; O2SAT 90–97
[2022-08-21 03:54] LABS: Basophils # 0.1 10^3/uL (0.0-0.1); Basophils % 0.8 %; Eosinophils # 0.3 10^3/uL (0.0-0.8); Eosinophils % 3.1 %; Hematocrit 34.5 % (37.0-47.0); Hemoglobin 10.8 g/dL (11.5-15.3); Lymphocytes # 5.4 10^3/uL (0.8-4.8); Mean Corpuscular HGB Conc 31.3 g/dL (30.0-36.0); Mean Corpuscular Hemoglobin 27.1 pg (28.0-34.0); Mean Corpuscular Volume 86.5 fl (81-99); Mean Platelet Volume 9.7 fL (7.4-10.4); Monocytes # 0.7 10^3/uL (0.2-0.9); Monocytes % 6.4 %; Neutrophils # 4.05 10^3/uL (1.8-7.7); Neutrophils % 38.3 %; Nucleated Red Blood Cells % 0 %; Platelet Count 350 10^3/cmm (130-400); Red Blood Count 3.99 10^6/uL (4.1-5.3); White Blood Count 10.6 10^3/uL (4.0-10.0)
[2022-08-21 04:08] LABS: Ammonia 18 umol/L (11-51)
[2022-08-21 04:19] LABS: Alanine Aminotransferase 13 U/L (0-33); Albumin Level 3.3 g/dL (3.5-5.2); Alkaline Phosphatase 111 U/L (35-105); Anion Gap 15.5 (5-19); Aspartate Amino Transferase 24 U/L (0-32); Blood Urea Nitrogen 7 mg/dL (8-23); Calcium 8.7 mg/dL (8.5-10.5); Carbon Dioxide 25 mmol/L (22-29); Chloride 105 mmol/L (98-107); Globulin 3.7 g/dL (1.3-4.6); Glucose 178 mg/dL (65-115); Osmolality Calculated 294 mOsm/kg (285-295); Potassium 4.5 mmol/L (3.5-5.1); Sodium 141 mmol/L (136-145); Total Bilirubin 0.3 mg/dL (0.15-1.2)
[2022-08-21] MEDS: cholecalciferol (vitamin D3) 1,000 unit Tablet 2000 UNIT PO (06:29)
[2022-08-21] MEDS: buPROPion XL (24 HR) 300 mg Tablet PO (06:30)
[2022-08-21] MEDS: pantoprazole DR 40 mg Tablet PO (06:30)
[2022-08-21 06:38] LABS: Glucose Point of Care 172 mg/dL (70-110)
[2022-08-21] MEDS: amlodipine 5 mg Tablet PO (09:38)
[2022-08-21] MEDS: FUROsemide 40 mg Tablet PO (09:38)
[2022-08-21] MEDS: isosorbide mononitrate ER 30 mg Tablet PO (09:38)
[2022-08-21] MEDS: metoprolol tartrate 25 mg Tablet 12.5 MG PO ×2 (09:38→17:55)
[2022-08-21] MEDS: venlafaxine ER (24HR) 150 mg Capsule PO ×2 (09:38→17:55)
[2022-08-21] MEDS: azithromycin 250 mg Tablet 500 MG PO (09:40)
[2022-08-21] MEDS: insulin lispro 100 unit/1 mL SUBCUT ×3 (09:40→17:56)
[2022-08-21 12:10] LABS: Glucose Point of Care 210 mg/dL (70-110)
[2022-08-21] MEDS: lisinopril 20 mg Tablet PO (14:46)
--- NOTE | 2022-08-21 16:35 | P.PN_ITS ---
Subjective Subjective: Patient was confused last evening, however this morning she appears to be at her baseline mentation. She is pleasant, alert cooperative talkative. No other acute events. BP 150-180 systolic this morning Medications: Reviewed: Yes Vitals/I&O/Wt Last Vital Signs Temp 97.5 F L 08/21/22 13:35 Pulse 67 08/21/22 14:00 Resp 18 08/21/22 13:35 BP 150/80 08/21/22 13:35 Pulse Ox 93 08/21/22 13:35 O2 Del Method 08/21/22 13:35 O2 Flow Rate 2 08/20/22 08:00 08/21/22 08/21/22 08/21/22 06:59 14:59 22:59 Intake Total 120 / 120 Balance 120 / 120 Physical Exam Narrative: General: No acute distress, AO x3 HEENT: PERRLA, pupils bilaterally equal and reactive, pallors not present Chest: Normal vesicular breath sounds, no added sounds, equal good air entry bilaterally CVS: S1-S2 regular, no murmurs, no tachycardia, no gallops, no rubs Abdomen: Soft, nontender, no organomegaly, bowel sounds present Neuro: No focal deficits, no facial deformity, AO x3, power 5/5 in all limbs Urinary Catheter Management: Pierre: Cath Placed During This Visit: yes, but has since been removed by the nurse Reason for Continuing Indwelling Catheter: Other Urinary Catheter Date of Insertion: 08/17/22 Urinary Catheter Time of Insertion: 20:22 Date Urinary Catheter Removed: 08/20/22 Time Urinary Catheter Discontinued: 14:18 Data 08/21/22 03:40 08/21/22 03:40 Micro: Microbiology 08/19/22 14:40 MRSA Culture - Final Nose A&P Assessment and plan (1) Syncope: (2) Postobstructive pneumonia: (3) Acute kidney injury: (4) COPD (chronic obstructive pulmonary disease): (5) Hyperkalemia: (6) Falls frequently: (7) Ataxia: (8) MGUS (monoclonal gammopathy of unknown significance): (9) Type 2 diabetes mellitus: (10) Dyslipidemia: (11) History of pulmonary embolism: Plan 77-year-old female with history of COPD, history of pulm embolism on anticoagulation, Santos, uses a wheeled walker at home for ambulation, insulin- dependent diabetic, right hepatic lobe hemangioma, was diagnosed with COVID-19 last year, presented to the hospital with chief complaint of syncopal event # recurrent Syncope CT head with Atrophic or involutional change for age, including sequela of chronic small-vessel disease change. Echo showed preserved ejection fraction normal diastolic function Patient clinically dehydrated initially upon admission, currently euvolemic. 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 No evidence of orthostatic hypotension has been found. Patient's blood pressure is now trending towards hypertension with systolic up to 180 mmHg. Increase amlodipine to 10 mg a day. resume lisinopril at reduced dose of 20mg daily. , # DECLAN related to dehydration which is improving with IV fluid hydration, creatinine now at 0.9. Resolved. # Dementia:CT head showing age-related changes Short attention span Pleasant but confused Able to answer few questions # Postobstructive pneumonia treated with cefepime and vancomycin 08/17-08/19, de-escalate to ceftriaxone and azithromycin on 08/20. Plan to treat for total 7 day course. Lost iv accesss, change to augmentin. Concern for hilar/endobronchial mass with postobstructive pneumonia Pulmonary not on-call until September 06 We will need to expedite her appointment as outpatient to evaluate for bronchoscopy # recurrent falls: We will likely need to remain off anticoagulation given recurrent falls and multiple bruising all over. Patient is full code goals of care discussed with Therapy assessments demonstrating reduced endurance, will benefit from ongoing physical and occupational therapy. Awaiting appropriate disposition planning. Accepted at SNF, cannot arrange transport over the weekend consis carb diet Full code Attestations Medical Necessity Statement*: BP control, appropriate disposition planning Coding Level of Care Code Acute Code for g Fwd Diagnoses Syncope R55 Postobstructive pneumonia J18.9 Acute kidney injury N17.9 COPD (chronic obstructive pulmonary disease) J44.9 Hyperkalemia E87.5 Falls frequently R29.6 Ataxia R27.0 MGUS (monoclonal gammopathy of unknown significance) D47.2 Type 2 diabetes mellitus E11.9 Dyslipidemia E78.5 History of pulmonary embolism Z86.711
[2022-08-21 16:51] LABS: Glucose Point of Care 164 mg/dL (70-110)
[2022-08-21] MEDS: amoxicillin-clav 875-125 mg Tablet 1 TAB PO (17:55)
[2022-08-21] MEDS: atorvastatin 40 mg Tablet 20 MG PO (17:55)
[2022-08-21] MEDS: insulin glargine 100 units/1 mL 20 UNIT SUBCUT (20:13)
[2022-08-21] MEDS: trazodone 150 mg Tablet 300 MG PO (20:13)
[2022-08-21 20:20] LABS: Glucose Point of Care 164 mg/dL (70-110)
[2022-08-22 04:00] VITALS: BP 159/87; PULSE 70; RESP 18; TEMP 36.5; O2SAT 94
[2022-08-22] MEDS: pantoprazole DR 40 mg Tablet PO (05:00)
[2022-08-22] MEDS: buPROPion XL (24 HR) 300 mg Tablet PO (05:00)
[2022-08-22] MEDS: cholecalciferol (vitamin D3) 1,000 unit Tablet 2000 UNIT PO (05:00)
[2022-08-22 05:59] VITALS: PULSE 60
[2022-08-22 07:14] VITALS: PULSE 54; RESP 18
[2022-08-22 07:25] LABS: Glucose Point of Care 225 mg/dL (70-110)
[2022-08-22 08:00] VITALS: BP 126/74; PULSE 61; RESP 18; TEMP 36.7; O2SAT 95
[2022-08-22 08:09] VITALS: PULSE 63; RESP 16; O2SAT 94
--- NOTE | 2022-08-22 08:13 | P.DS_ITS ---
Discharge Providers Date of Admission: 08/17/22 17:02 Date of Discharge: August 22, 2022 Attending Provider at Admission: Wellington Alexander MD Attending Provider at Discharge: Joni Paula MD Primary Care Provider: Gurinder Allen Diagnoses at Discharge Discharge Diagnosis (1) Syncope: Status: Acute (2) Postobstructive pneumonia: Status: Acute (3) Acute kidney injury: Status: Acute (4) COPD (chronic obstructive pulmonary disease): Status: Acute (5) Hyperkalemia: Status: Acute (6) Falls frequently: Status: Acute (7) Ataxia: Status: Acute (8) MGUS (monoclonal gammopathy of unknown significance): Status: Acute (9) Type 2 diabetes mellitus: Status: Acute (10) Dyslipidemia: Status: Acute (11) History of pulmonary embolism: Status: Acute Permanent problem details: had s/s of covid 19, but never tested. Assumed possibly related Reason for Visit Reason for Visit: weakness/falls Brief History: Tamar Mercado is a 77 year old female who was seen at [facility] where she was discharged after initial work-up, presented to the hospital after she was found on the ground by her .? Patient is stating that she is not able to recall what happened.? is at the bedside who is providing history, as per the she has been weak and lethargic for quite some time but today after they came back from the ER he found her in the living room facedown, patient is denying chest pain, shortness of breath, fever, nausea, vomiting however has noticed audible wheezing.As per the recently at [facility] chest x-ray showed lung mass/consolidation for which they asked them to follow-up with PCP Dr. Torres.he has been diagnosed with A-fib which is chronic, she takes Coumadin, as per the she has had more than 10 episodes of falls in the last 12 months Hospital Course Hospital Course 77-year-old female with history of COPD, history of pulm embolism on anticoagulation, Santos, uses a wheeled walker at home for ambulation, insulin- dependent diabetic, right hepatic lobe hemangioma, was diagnosed with COVID-19 last year, presented to the hospital with chief complaint of syncopal event. Hospital course as below: # recurrent Syncope CT head with?Atrophic or involutional change for age, including sequela of chronic small-vessel disease change. ?Echo showed preserved ejection fraction normal diastolic function Patient clinically dehydrated initially upon admission, treated with IV fluids currently euvolemic.?? 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 No evidence of orthostatic hypotension has been found.? Patient's blood pressure is now trending towards hypertension with systolic up to 180 mmHg, much better controlled at time of discharge with increase amlodipine to 10 mg a day. resuming lisinopril at reduced dose of 10mg daily. , # DECLAN related to dehydration which is improving with IV fluid hydration, creatinine now at 0.9. Resolved. Lisinopril was transiently held. Dose reduced at discharge. # Dementia:CT head showing age-related changes Short attention span Pleasant but confused Able to answer few questions # Postobstructive pneumonia treated with? cefepime and vancomycin 08/17-08/19, de-escalated to ceftriaxone and azithromycin on 08/20. Plan to treat for total 7 day course. Discharge on Augmentin 875 bid for remaining 2 days Concern for hilar/endobronchial mass with postobstructive pneumonia Pulmonary not on-call until September 06 requested pulmonology to expedite her appointment as outpatient to evaluate for bronchoscopy. # recurrent falls: We will likely need to remain off anticoagulation given recurrent falls and multiple bruising all over. Patient is full code Therapy assessments demonstrating reduced endurance, will benefit from ongoing physical and occupational therapy.? Atransition to SNF to meet these needs consis carb diet Full code Physical Exam Narrative: General: No acute distress, AO x3 HEENT: PERRLA, pupils bilaterally equal and reactive Chest: Normal vesicular breath sounds, no added sounds, equal good air entry bilaterally CVS: S1-S2 regular, no murmurs, no tachycardia, no gallops, no rubs Abdomen: Soft, nontender, no organomegaly, bowel sounds present Neuro: No focal deficits, no facial deformity, AO x3, power 5/5 in all limbs Urinary Catheter Management: Pierre: Cath Placed During This Visit: yes, but has since been removed by the nurse Reason for Continuing Indwelling Catheter: Other Urinary Catheter Date of Insertion: 08/17/22 Urinary Catheter Time of Insertion: 20:22 Date Urinary Catheter Removed: 08/20/22 Time Urinary Catheter Discontinued: 14:18 Discharge Data Studies Completed and Pending Completed Studies During Hospitalization Category Date Time Status CT chest abdomen pelvis [[place] [id number] Cat Scan 08/17/22 17:02 Completed ] Stat CT head wo con* [id number] Stat Cat Scan 08/17/22 14:27 Completed XR wrist RT min 3V* [id number] Stat Exams 08/17/22 14:27 Completed CV. echo complete* [id number] Urgent Ultrasound 08/17/22 20:44 Completed Pending at discharge Category Date Time Status Sputum Culture and Gram Stain Routine Lab 08/17/22 20:44 Uncollected Radiology Impressions Head CT 08/17/22 14:27 IMPRESSION: 1. Atrophic or involutional change for age, including sequela of chronic small-vessel disease change. 2. No acute intracranial abnormality. 3. Mild mucosal sinus disease involving portions of the right maxillary, ethmoid, frontal, and sphenoid sinuses. Wrist X-Ray 08/17/22 14:27 IMPRESSION: Mild degenerative change, and without fracture. Chest/Abdomen/Pelvis CT 08/17/22 17:02 IMPRESSION: 1. Opacity or area of consolidation mid right lung extending from the right hilum laterally to the pleural margin, new from prior exam. This may represent an area of consolidated pneumonia, though consider postobstructive pneumonia from the right hilar region. 2. Increased area of subpleural pulmonary opacity within the right lung base in association with a mild thick walled bulla or bleb versus pneumatocele. Findings are more suggestive of right basilar pneumonia, with interval increase from prior exam. 3. Chronic changes otherwise when correlated with prior exam. IMPRESSION: 1. Unchanged ill-defined low-density area right lobe of the liver suggestive of benign findings such as geographic fatty liver. 2. Mild sigmoid colon diverticulosis without diverticulitis. 3. Chronic changes otherwise, without acute findings. Echocardiogram: CONCLUSIONS ?Technically limited quality echocardiogram because of poor ?ultrasonic windows. ?LV systolic function is normal with EF 55 to 60%. ?Grade 1 diastolic dysfunction ?Mild tricuspid regurgitation ?Compared to prior echocardiogram from 06/2021, no significant ?changes are seen. ?Mitch Roldan MD ?(Electronically Signed) ?Final Date:? ? ? 18 August 2022 ? 12:29 S Laboratory Results WBC 10.6 10^3/uL (4.0-10.0) H 08/21/22 03:40 RBC 3.99 10^6/uL (4.1-5.3) L 08/21/22 03:40 Hgb 10.8 g/dL (11.5-15.3) L 08/21/22 03:40 Hct 34.5 % (37.0-47.0) L 08/21/22 03:40 MCV 86.5 fl (81-99) 08/21/22 03:40 MCH 27.1 pg (28.0-34.0) L 08/21/22 03:40 MCHC 31.3 g/dL (30.0-36.0) 08/21/22 03:40 RDW 14.0 % (12.1-15.1) 08/21/22 03:40 Plt Count 350 10^3/cmm (130-400) 08/21/22 03:40 MPV 9.7 fL (7.4-10.4) 08/21/22 03:40 Neut % (Auto) 38.3 % 08/21/22 03:40 Lymph % (Auto) 51.0 % 08/21/22 03:40 [place] % (Auto) 6.4 % 08/21/22 03:40 Eos % (Auto) 3.1 % 08/21/22 03:40 Baso % (Auto) 0.8 % 08/21/22 03:40 Neut # (Auto) 4.05 10^3/uL (1.8-7.7) 08/21/22 03:40 Lymph # (Auto) 5.4 10^3/uL (0.8-4.8) H 08/21/22 03:40 [place] # (Auto) 0.7 10^3/uL (0.2-0.9) 08/21/22 03:40 Eos # (Auto) 0.3 10^3/uL (0.0-0.8) 08/21/22 03:40 Baso # (Auto) 0.1 10^3/uL (0.0-0.1) 08/21/22 03:40 Nucleated RBC % (auto) 0 % 08/21/22 03:40 Total Counted 100 (0-100) 08/19/22 05:08 Atypical Lymphs % 0.0 % (0-5) 08/19/22 05:08 Absolute Neutrophils 6.0 10^3/cmm (1.4-6.5) 08/19/22 05:08 Segmented Neutrophils 54 % 08/19/22 05:08 Abs Segm Neuts (Man) 5.6 10/cmm (1.6-7.1) 08/19/22 05:08 Band Neutrophils 4.0 % 08/19/22 05:08 Abs Band Neuts (Man) 0.4 10^3/cmm (0.0-1.2) 08/19/22 05:08 Absolute Lymphocytes 3.7 10^3/cmm (1.2-3.4) H 08/19/22 05:08 Lymphocytes (Manual) 36 % 08/19/22 05:08 Monocytes (Manual) 2.0 % 08/19/22 05:08 Absolute Monocytes 0.2 10^3/cmm (0.1-0.6) 08/19/22 05:08 Eosinophils (Manual) 4 % 08/19/22 05:08 Absolute Eosinophils 0.4 10^3/cmm (0.0-0.7) 08/19/22 05:08 Basophils (Manual) 0.0 % 08/19/22 05:08 Absolute Basophils 0.0 10^3/cmm (0.0-0.2) 08/19/22 05:08 Nucleated RBCs # 0.0 /100WBC 08/21/22 03:40 Platelet Estimate Normal (Normal) 08/19/22 05:08 PT 24.80 SECONDS (12.1-14.9) H 08/17/22 15:15 INR 2.15 (0.8-1.2) H 08/17/22 15:15 D-Dimer 1.17 ug/mIFEU (0-0.59) H 08/18/22 10:55 Sodium 141 mmol/L (136-145) 08/21/22 03:40 Potassium 4.5 mmol/L (3.5-5.1) 08/21/22 03:40 Chloride 105 mmol/L (98-107) 08/21/22 03:40 Carbon Dioxide 25 mmol/L (22-29) 08/21/22 03:40 Anion Gap 15.5 (5-19) 08/21/22 03:40 BUN 7 mg/dL (8-23) L 08/21/22 03:40 Creatinine 0.9 mg/dL (0.5-0.9) 08/21/22 03:40 GFR Calculation Not Reportable 08/21/22 03:40 Glucose 178 mg/dL (65-115) H 08/21/22 03:40 POC Glucose 225 mg/dL (70-110) H 08/22/22 06:59 Calculated Osmolality 294 mOsm/kg (285-295) 08/21/22 03:40 Lactic Acid 1.1 mmol/L (0.5-2.2) 08/17/22 17:33 Calcium 8.7 mg/dL (8.5-10.5) 08/21/22 03:40 Magnesium 2.0 mg/dL (1.7-2.3) 08/18/22 03:21 Total Bilirubin 0.3 mg/dL (0.15-1.2) 08/21/22 03:40 AST 24 U/L (0-32) 08/21/22 03:40 ALT 13 U/L (0-33) 08/21/22 03:40 Alkaline Phosphatase 111 U/L (35-105) H 08/21/22 03:40 Ammonia 18 umol/L (11-51) 08/21/22 03:40 Total Protein 7.0 g/dL (6.6-8.7) 08/21/22 03:40 Albumin 3.3 g/dL (3.5-5.2) L 08/21/22 03:40 Globulin 3.7 g/dL (1.3-4.6) 08/21/22 03:40 TSH 2.77 uIU/mL (0.27-4.20) 08/17/22 17:33 SARS-CoV-2 Ag (Rapid) negative (Negative) 08/19/22 14:40 Vitals Last Vital Signs Temp 98.0 F 08/22/22 08:00 Pulse 63 08/22/22 08:09 Resp 16 08/22/22 08:09 BP 126/74 08/22/22 08:00 Pulse Ox 94 08/22/22 08:09 O2 Del Method 08/22/22 08:09 O2 Flow Rate 2 08/20/22 08:00 Discharge Plan Discharge Patient Disposition: Xfer SNF Condition: Stable Prescriptions: New amlodipine 10 mg Tablet 10 mg PO DAILY 30 Days Qty: 30 0RF amoxicillin-pot clavulanate 875-125 mg Tablet 1 tab PO BID 2 Days Qty: 4 0RF lisinopril 10 mg tablet 10 mg PO DAILY 30 Days Qty: 30 0RF Continued trazodone 300 mg tablet 300 mg PO BEDTIME cholecalciferol (vitamin D3) 1,000 unit capsule 2,000 unit PO QAM temazepam 30 mg capsule 30 mg PO BEDTIME potassium chloride 20 mEq tablet extended release 20 meq PO DAILY omega 9-jbc-krf-fish oil [Fish Oil] 1,200 (144-216) mg capsule 1 cap PO DAILY (DME) Diabetic Shoes See Rx Instructions .Route .MEDSUPPLY Qty: 1 0RF Rx Instructions: As directed metoprolol tartrate 25 mg tablet 12.5 mg PO BID Qty: 90 3RF furosemide 40 mg tablet 40 mg PO DAILY Qty: 100 3RF venlafaxine 150 mg capsule,extended release 24hr 150 mg PO BID Novolin 70/30 U-100 Insulin 100 unit/mL (70-30) suspension 40 unit SUBCUT BID hydrocodone-acetaminophen 10-325 mg tablet 1 tab PO Q6H PRN (Reason: Pain) omeprazole 40 mg capsule,delayed release(DR/EC) 40 mg PO QAM docusate sodium [Colace] 100 mg Capsule 200 mg PO BID lovastatin 20 mg tablet 20 mg PO QPM albuterol sulfate 90 mcg/actuation HFA aerosol inhaler 2 puff INHALATION Q4H PRN (Reason: Shortness Of Breath) bupropion HCl 300 mg tablet extended release 24 hr 300 mg PO QAM melatonin 5 mg Tablet 5 mg PO BEDTIME nitroglycerin 0.4 mg tablet, sublingual 0.4 mg sublingual Q5M PRN (Reason: chest pain) Qty: 20 0RF Rx Instructions: do not exceed 3 doses per episode isosorbide mononitrate 30 mg tablet extended release 24 hr 30 mg PO DAILY Qty: 90 3RF Discontinued lisinopril 40 mg tablet 40 mg PO DAILY Qty: 90 3RF amlodipine 2.5 mg tablet 2.5 mg PO DAILY gabapentin 300 mg Capsule 300 mg PO TID hydroxyzine HCl 50 mg tablet 50 mg PO TID sulfamethoxazole-trimethoprim 800-160 mg tablet 1 tab PO BID Discharge Orders: Discharge Order (Routine); Ordered 08/22/22 Ordered By: Joni Paula Referrals: Karen Guerrero [Outside] Datar,Amilcar Simpson MD [Physician] - 09/27/22 1:45 pm Gurinder Allen [Primary Care Provider] - 7-10 days Discharge Diet: Usual diet Discharge Activity: Resume usual activity and Increase activity as tolerated Activity Restrictions/Additional Instructions: Multiple medication changes have been done. Amlodipine dose has been changed to 10 mg daily. Lisinopril dose has been changed to 10 mg daily. Bactrim has been stopped. Take Augmentin which is the antibiotic for next 1 week. You are supposed to take it twice daily. Please check your blood pressure daily at home and maintain a blood pressure diary and follow-up with a primary care provider within next 10 days for further adjustment of antihypertensive as needed. Please follow-up with pulmonology on September 27 as scheduled. Discharge Attestations Time Spent in Discharge Care*: greater than 30 min Specific Discharge Activities: educating patient, educating and/or supporting family/caregiver, discussing with pcp/other providers, discussing with correctional counselor/case manager/social workers/dc planners, documenting/other paperwork and evaluating patient/reviewing data Status at Discharge: Cognitive status at discharge: cognitively intact , Behavioral status at discharge: cooperative , Functional status at discharge: uses cane/walker , Overall status at discharge: patient is progressing back to baseline Quality Metrics Clinical Quality Measures [ No reported AMI, CVA or VTE this stay] Coding Level of Care Code 95811 Total time (in minutes) for Discharge: 45 Diagnoses Syncope R55 Postobstructive pneumonia J18.9 Acute kidney injury N17.9 COPD (chronic obstructive pulmonary disease) J44.9 Hyperkalemia E87.5 Falls frequently R29.6 Ataxia R27.0 MGUS (monoclonal gammopathy of unknown significance) D47.2 Type 2 diabetes mellitus E11.9 Dyslipidemia E78.5 History of pulmonary embolism Z86.711
[2022-08-22] MEDS: insulin lispro 100 unit/1 mL SUBCUT ×2 (08:43→12:33)
[2022-08-22] MEDS: azithromycin 250 mg Tablet 500 MG PO (08:43)
[2022-08-22] MEDS: isosorbide mononitrate ER 30 mg Tablet PO (08:44)
[2022-08-22] MEDS: FUROsemide 40 mg Tablet PO (08:44)
[2022-08-22] MEDS: amoxicillin-clav 875-125 mg Tablet 1 TAB PO (08:44)
[2022-08-22] MEDS: venlafaxine ER (24HR) 150 mg Capsule PO (08:44)
[2022-08-22 11:00] LABS: SARS Covid-2 Antigen Negative (Negative)
[2022-08-22 11:00] LABS: Glucose Point of Care 243 mg/dL (70-110)
[2022-08-22 12:00] VITALS: BP 129/78; PULSE 71; RESP 18; TEMP 36.4; O2SAT 96
--- NOTE | 2022-08-22 12:06 | PC.SOCIAL ---
IMM Update pg 2 of IMM updated and reviewed w/ patients who is @ bedside. Copy provided and Copy in chart dated and initialed.
--- NOTE | 2022-08-22 12:58 | PC.NURSE ---
This nurse contacted [facility] at 1247 to give report on patient. Odalys took report and this nurse gave report on pts vitals, hx, and ongoing needs. This nurse answered all questions at this time.
--- NOTE | 2022-08-22 13:44 | PC.OT ---
OT TREATMENT HELD PATIENT IS SCHEDULED FOR D/C TODAY.
== END 2022-08-22 14:14 | disposition skilled nursing facility (03) | DRG 682 ==
LOC: ER 19:25 → CSU 08-18 01:18 → MEDSURG 08-18 12:22
PROVIDERS: Internal Medicine; Student in an Organized Health Care Education/Training Program; Admitting Provider Internal Medicine; Emergency Provider Emergency Medicine; PCP Family Medicine; Visit Provider Student in an Organized Health Care Education/Training Program
DX: N17.9 Acute kidney failure, unspecified (principal); J18.9 Pneumonia, unspecified organism; I48.20 Chronic atrial fibrillation, unspecified; J44.0 Chronic obstructive pulmonary disease with (acute) lower respiratory infection; R29.6 Repeated falls; E86.0 Dehydration; F03.90 Unspecified dementia, unspecified severity, without behavioral disturbance, psychotic disturbance, mood disturbance, and anxiety; Z79.891 Long term (current) use of opiate analgesic; Z79.51 Long term (current) use of inhaled steroids; Z86.711 Personal history of pulmonary embolism; R91.8 Other nonspecific abnormal finding of lung field; G89.29 Other chronic pain; E78.5 Hyperlipidemia, unspecified; G25.0 Essential tremor; I10 Essential (primary) hypertension; D47.2 Monoclonal gammopathy; Z79.4 Long term (current) use of insulin; K75.81 Nonalcoholic steatohepatitis (NASH); E87.5 Hyperkalemia; Z86.16 Personal history of COVID-19; D18.09 Hemangioma of other sites; R27.0 Ataxia, unspecified; Z85.820 Personal history of malignant melanoma of skin; E11.9 Type 2 diabetes mellitus without complications
CPT/HCPCS: 36415; 36416; 51702; 70450; 71250; 73110; 74176; 80048; 80053; 82140; 82962; 83605; 83735; 84443; 85007; 85025; 85378; 85610; 86403; 87426; 87641; 93005; 93306; 94640; 94664; 96361; 96365; 96372; 97110; 97116; 97161; 97165; 97530; 97535; 99285; J0610; J0692; J0696; J1815; J2920; J3370; J7030; J7050; Q0144

== ENCOUNTER 2022-09-10 05:29 | Outpatient (CLI) | payer MEDICARE, OTHER, SELFPAY ==
--- NOTE | 2022-09-10 | PETR_ITS ---
PROCEDURE INFORMATION: Exam: PET/CT Skull Base to Mid-thigh Exam date and time: 09/10/2022 10:57 AM Age: 77 years old Clinical indication: Mass of right lung; according to prior report, the patient has MGUS (monoclonal gammopathy of unknown significance). LABS AND CLINICAL REPORTS: Glucose: 144 mg/dl Treatment strategy for malignancy (PET staging): Initial Staging (PI) TECHNIQUE: Imaging protocol: Following at least four-hour fasting and following the injection of F-18-FDG, low dose CT images were obtained. Then, PET images were obtained. Attenuation corrected images were constructed using the CT scan. Fused images of PET and CT were reviewed. The standardized uptake values (SUV) reported below are maximum values within a region of interest, expressed in gm/ml. Exam includes orbital meatal line to mid-thigh. Radiopharmaceutical: 11.17 mCi F-18 FDG (Fluorodeoxyglucose), IV. Time of imaging post radiopharmaceutical administration: 73.6 minutes. Injection site: Right antecubital vein. COMPARISON: 1. CT chest abdomen pelvis 08/17/2022. 2. CTA chest 07/13/2021 FINDINGS: Brain: Visualized brain has normal physiologic uptake. Pharynx: No abnormal uptake. Larynx: No abnormal uptake. Lungs, pleura and trachea: In the right upper lobe, at the posteroinferior aspect of the posterior segment, a platelike area of consolidation adjacent to the superior aspect of the major fissure is 80% smaller than it was on 08/17/2022. It is not FDG avid. Its SUV max is only 1.7. It is consistent with slowly resolving pneumonia, not cancer. Stable 1.9 cm pneumatocele at the posterior basal segment of the right lower lobe. An area of discoid atelectasis adjacent to it has resolved since the prior chest CT. The lungs are otherwise clear. Heart: Normal physiologic uptake. Mediastinal space: No abnormal uptake. Liver: No abnormal uptake. Gallbladder and bile ducts: No abnormal uptake. Pancreas: No abnormal uptake. Spleen: No abnormal uptake. Adrenal glands: No abnormal uptake. Kidneys and ureters: Normal physiologic uptake. Stomach and bowel: Mild colonic diverticulosis without evidence of diverticulitis. The colon is otherwise unremarkable. No acute colonic distention or inflammation. Vasculature: No abnormal uptake. Lymph nodes: No abnormal uptake. No lymphadenopathy in the head, neck, chest, abdomen, pelvis or extremities. Bones/joints: Healing fractures at the anterior aspects of the right 4th, 6th and 7th ribs (images 51, 60 and 67). They have SUVs max of 4.1, 4.4 and 5.7 respectively. Severe burst fracture of the T8 vertebral body has an SUV max of 3.9. Its posterior cortex is retropulsed 5 mm into the spinal canal and causes mild central canal stenosis. Compared to the CT chest on 07/13/2021, the vertebral compression fracture is worse. 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 Mild diffuse increased FDG avidity throughout the thoracolumbar spine and pelvis may be due to the patient's known monoclonal gammopathy. SUVs max range between 3.4 and 3.9, except the T12 vertebral body which has an SUV max of 5.0. SUV max in the right acetabulum is 4.1. SUV max in the left acetabulum is 3.6. Soft tissues: No metabolically active areas. PET/PET skulltothigh INITIAL [id number] IMPRESSION: 1. In the right upper lobe, at the posteroinferior aspect of the posterior segment, a platelike area of consolidation adjacent to the superior aspect of the major fissure is 80% smaller than it was on 08/17/2022. It is not FDG avid. Its SUV max is only 1.7. It is consistent with slowly resolving pneumonia, not cancer. 2. Healing fractures at the anterior aspects of the right 4th, 6th and 7th ribs. 3. Severe burst fracture of the T8 vertebral body has an SUV max of 3.9. Compared to the CT chest on 07/13/2021, the vertebral compression fracture is worse. 4. Mild diffuse increased FDG avidity throughout the thoracolumbar spine and pelvis may be due to the patient's known monoclonal gammopathy. SUVs max range up to 5.0 in the T12 vertebral body.
== END 2022-09-10 05:30 | disposition home or self-care (01) ==
LOC: RAD 09-12 05:29
PROVIDERS: PCP Family Medicine; Visit Provider Family Medicine
DX: R91.8 Other nonspecific abnormal finding of lung field (principal); S22.41XA Multiple fractures of ribs, right side, initial encounter for closed fracture; X58.XXXA Exposure to other specified factors, initial encounter; S22.061A Stable burst fracture of T7-T8 vertebra, initial encounter for closed fracture
CPT/HCPCS: 78815; A9552

== ENCOUNTER → 2022-09-20 12:17 | Outpatient (BNVA) | payer MEDICARE, OTHER, SELFPAY | PROVIDERS: PCP Family Medicine; Visit Provider Internal Medicine Pulmonary Disease | DX: R91.8 Other nonspecific abnormal finding of lung field (principal); R06.09 Other forms of dyspnea; J44.9 Chronic obstructive pulmonary disease, unspecified; Z77.22 Contact with and (suspected) exposure to environmental tobacco smoke (acute) (chronic) | CPT/HCPCS: 99204 ==

== ENCOUNTER → 2022-10-31 13:05 | Outpatient (BNVA) | payer MEDICARE, OTHER, SELFPAY | PROVIDERS: PCP Family Medicine; Visit Provider Podiatrist Foot & Ankle Surgery | DX: E11.42 Type 2 diabetes mellitus with diabetic polyneuropathy (principal); Z79.4 Long term (current) use of insulin; M20.41 Other hammer toe(s) (acquired), right foot; M20.42 Other hammer toe(s) (acquired), left foot; R60.9 Edema, unspecified; G62.9 Polyneuropathy, unspecified | CPT/HCPCS: 99213 ==

== ENCOUNTER → 2023-01-25 10:09 | Outpatient (BNVA) | payer MEDICARE, OTHER, SELFPAY | PROVIDERS: PCP Family Medicine; Visit Provider Internal Medicine Cardiovascular Disease | DX: I25.10 Atherosclerotic heart disease of native coronary artery without angina pectoris (principal); I10 Essential (primary) hypertension; Z86.711 Personal history of pulmonary embolism; E78.5 Hyperlipidemia, unspecified; E11.42 Type 2 diabetes mellitus with diabetic polyneuropathy; Z79.4 Long term (current) use of insulin | CPT/HCPCS: 99214 ==

== ENCOUNTER → 2023-05-01 13:02 | Outpatient (BNVA) | payer MEDICARE, OTHER, SELFPAY | PROVIDERS: PCP Family Medicine; Visit Provider Podiatrist Foot & Ankle Surgery | DX: B35.1 Tinea unguium (principal); M20.41 Other hammer toe(s) (acquired), right foot; M20.42 Other hammer toe(s) (acquired), left foot; R60.9 Edema, unspecified; G62.9 Polyneuropathy, unspecified; E11.42 Type 2 diabetes mellitus with diabetic polyneuropathy; Z79.4 Long term (current) use of insulin | CPT/HCPCS: 11721 ==

== ENCOUNTER → 2023-07-24 12:49 | Outpatient (BNVA) | payer MEDICARE, OTHER, SELFPAY | PROVIDERS: PCP Family Medicine; Visit Provider Podiatrist Foot & Ankle Surgery | DX: B35.1 Tinea unguium (principal); M20.41 Other hammer toe(s) (acquired), right foot; M20.42 Other hammer toe(s) (acquired), left foot; R60.9 Edema, unspecified; G62.9 Polyneuropathy, unspecified; E11.42 Type 2 diabetes mellitus with diabetic polyneuropathy; Z79.4 Long term (current) use of insulin | CPT/HCPCS: 11721 ==

== ENCOUNTER → 2024-01-01 14:29 | Outpatient (BNVA) | payer MEDICARE, OTHER, SELFPAY | PROVIDERS: PCP Family Medicine; Visit Provider Podiatrist Foot & Ankle Surgery | DX: B35.1 Tinea unguium (principal); M20.41 Other hammer toe(s) (acquired), right foot; M20.42 Other hammer toe(s) (acquired), left foot; R60.9 Edema, unspecified; G62.9 Polyneuropathy, unspecified; E11.42 Type 2 diabetes mellitus with diabetic polyneuropathy; Z79.4 Long term (current) use of insulin | CPT/HCPCS: 11721 ==

== ENCOUNTER → 2024-03-04 15:23 | Outpatient (BNVA) | payer MEDICARE, OTHER, SELFPAY | PROVIDERS: PCP Family Medicine; Visit Provider Podiatrist Foot & Ankle Surgery | DX: B35.1 Tinea unguium (principal); M20.41 Other hammer toe(s) (acquired), right foot; M20.42 Other hammer toe(s) (acquired), left foot; R60.9 Edema, unspecified; G62.9 Polyneuropathy, unspecified; E11.42 Type 2 diabetes mellitus with diabetic polyneuropathy; Z79.4 Long term (current) use of insulin | CPT/HCPCS: 11721 ==

== ENCOUNTER → 2024-03-20 14:42 | Outpatient (BNVA) | payer MEDICARE, OTHER, SELFPAY | PROVIDERS: PCP Family Medicine; Visit Provider Internal Medicine Cardiovascular Disease | DX: R06.02 Shortness of breath (principal) | CPT/HCPCS: 36415; 80048; 83880 ==

== ENCOUNTER 2024-04-15 12:43 | Outpatient (CLI) | payer MEDICARE, OTHER, SELFPAY ==
--- NOTE | 2024-04-15 13:00 | USCV_ITS ---
Tamar Mercado Age: 78 Gender: F : 1945 Exam Date: 04/15/2024 13:08 Ordering Phys: Kevin Trevizo MD ([email or web address]) Technologist: KIRSTIN Exam Location: [facility] [place]: Swelling HISTORY: Lower extremity swelling. PROCEDURES: Venous duplex imaging was performed in only the right lower extremity. The following venous structures were evaluated: common femoral vein, profunda vein, proximal portion of the greater saphenous vein, superficial femoral vein, and the popliteal vein. In addition, the posterior tibial and peroneal trunk were evaluated. Serial compression, augmentation maneuvers, and spectral Doppler flow evaluation were performed. FINDINGS: Normal 2-D Doppler and augmentation and compressibility throughout the lower extremity venous structures. Additional imaging through the proximal calf veins also reveals no thrombus. Limited evaluation of the greater saphenous vein is patent with no thrombus. CONCLUSIONS No DVT right lower extremity. Dr. Lorna Lopez DO (Electronically Signed) Final Date: 15 April 2024 13:42 S
== END 2024-04-15 12:44 | disposition home or self-care (01) ==
LOC: RAD 12:44
PROVIDERS: PCP Family Medicine; Visit Provider Internal Medicine Cardiovascular Disease
DX: M79.661 Pain in right lower leg (principal); M79.89 Other specified soft tissue disorders
CPT/HCPCS: 93971

== ENCOUNTER → 2024-04-23 15:08 | Outpatient (BNVA) | payer MEDICARE, OTHER, SELFPAY | PROVIDERS: PCP Family Medicine; Visit Provider Nurse Practitioner Family | DX: D48.5 Neoplasm of uncertain behavior of skin (principal); L30.8 Other specified dermatitis; D18.01 Hemangioma of skin and subcutaneous tissue; L73.8 Other specified follicular disorders; L91.8 Other hypertrophic disorders of the skin; L82.1 Other seborrheic keratosis; Z85.828 Personal history of other malignant neoplasm of skin | CPT/HCPCS: 11102; 99203 ==

== ENCOUNTER → 2024-05-06 14:52 | Outpatient (BNVA) | payer MEDICARE, OTHER, SELFPAY | PROVIDERS: PCP Family Medicine; Visit Provider Podiatrist Foot & Ankle Surgery | DX: B35.1 Tinea unguium (principal); M20.41 Other hammer toe(s) (acquired), right foot; M20.42 Other hammer toe(s) (acquired), left foot; R60.9 Edema, unspecified; G62.9 Polyneuropathy, unspecified; E11.42 Type 2 diabetes mellitus with diabetic polyneuropathy; L85.1 Acquired keratosis [keratoderma] palmaris et plantaris; Z79.4 Long term (current) use of insulin | CPT/HCPCS: 11056; 11721 ==

== ENCOUNTER → 2024-07-09 14:53 | Outpatient (BNVA) | payer MEDICARE, OTHER, SELFPAY | PROVIDERS: PCP Family Medicine; Visit Provider Podiatrist Foot & Ankle Surgery | DX: B35.1 Tinea unguium (principal); M20.41 Other hammer toe(s) (acquired), right foot; M20.42 Other hammer toe(s) (acquired), left foot; R60.9 Edema, unspecified; G62.9 Polyneuropathy, unspecified; E11.42 Type 2 diabetes mellitus with diabetic polyneuropathy; Z79.4 Long term (current) use of insulin | CPT/HCPCS: 11056; 11721 ==

== ENCOUNTER → 2024-09-10 13:45 | Outpatient (BNVA) | payer MEDICARE, OTHER, SELFPAY | PROVIDERS: PCP Family Medicine; Visit Provider Podiatrist Foot & Ankle Surgery | DX: E11.42 Type 2 diabetes mellitus with diabetic polyneuropathy (principal); B35.1 Tinea unguium; M20.41 Other hammer toe(s) (acquired), right foot; M20.42 Other hammer toe(s) (acquired), left foot; R60.9 Edema, unspecified; G62.9 Polyneuropathy, unspecified; Z79.4 Long term (current) use of insulin | CPT/HCPCS: 11056; 11721 ==

== ENCOUNTER → 2024-10-02 14:00 | Outpatient (BNVA) | payer MEDICARE, OTHER, SELFPAY | PROVIDERS: PCP Family Medicine; Visit Provider Internal Medicine Cardiovascular Disease | DX: I25.10 Atherosclerotic heart disease of native coronary artery without angina pectoris (principal); M79.89 Other specified soft tissue disorders; E78.5 Hyperlipidemia, unspecified; I10 Essential (primary) hypertension; Z86.711 Personal history of pulmonary embolism | CPT/HCPCS: 99214 ==

== ENCOUNTER → 2024-11-12 13:54 | Outpatient (BNVA) | payer MEDICARE, OTHER, SELFPAY | PROVIDERS: PCP Family Medicine; Visit Provider Podiatrist Foot & Ankle Surgery | DX: E11.69 Type 2 diabetes mellitus with other specified complication (principal); B35.1 Tinea unguium; M20.41 Other hammer toe(s) (acquired), right foot; M20.42 Other hammer toe(s) (acquired), left foot; R60.9 Edema, unspecified; G62.9 Polyneuropathy, unspecified; L90.9 Atrophic disorder of skin, unspecified; M77.42 Metatarsalgia, left foot; Z79.4 Long term (current) use of insulin | CPT/HCPCS: 11721; 99213 ==

== ENCOUNTER → 2025-01-14 14:30 | Outpatient (BNVA) | payer MEDICARE, OTHER, SELFPAY | PROVIDERS: PCP Family Medicine; Visit Provider Podiatrist Foot & Ankle Surgery | DX: E11.42 Type 2 diabetes mellitus with diabetic polyneuropathy (principal); B35.1 Tinea unguium; M20.41 Other hammer toe(s) (acquired), right foot; M20.42 Other hammer toe(s) (acquired), left foot; R60.9 Edema, unspecified; G62.9 Polyneuropathy, unspecified; Z79.4 Long term (current) use of insulin | CPT/HCPCS: 11721; 99213 ==

== ENCOUNTER → 2025-03-12 13:40 | Outpatient (BNVA) | payer MEDICARE, OTHER, SELFPAY | PROVIDERS: PCP Family Medicine; Visit Provider Podiatrist Foot & Ankle Surgery | DX: E11.42 Type 2 diabetes mellitus with diabetic polyneuropathy (principal); B35.1 Tinea unguium; M20.41 Other hammer toe(s) (acquired), right foot; M20.42 Other hammer toe(s) (acquired), left foot; R60.9 Edema, unspecified; G62.9 Polyneuropathy, unspecified; Z79.4 Long term (current) use of insulin | CPT/HCPCS: 11721; 99213 ==

== ENCOUNTER → 2025-03-27 14:14 | Outpatient (BNVA) | payer MEDICARE, OTHER, SELFPAY | PROVIDERS: PCP Family Medicine; Visit Provider Podiatrist Foot & Ankle Surgery | DX: E11.42 Type 2 diabetes mellitus with diabetic polyneuropathy (principal); B35.1 Tinea unguium; M20.41 Other hammer toe(s) (acquired), right foot; M20.42 Other hammer toe(s) (acquired), left foot; R60.9 Edema, unspecified; G62.9 Polyneuropathy, unspecified | CPT/HCPCS: 11721 ==